=== PATIENT | male | born 1975 | race Two or more races ===

== ENCOUNTER 2025-02-20 02:22 | Inpatient (IN) | payer MEDICAID ==
[~2025-02-20] VITALS: Ht 172.7 cm; Wt 129.3 kg
[~2025-02-20 02:22] MED LIST: SACU1TAB7 PO; SPIR25TA8 PO
--- NOTE | 2025-02-20 02:50 | ECG ---
[facility] Test Date: 2025-02-20 Test Time: 02:28:14 Pat Name: LETA TA Department: ED Room: [address] [place] [address] Gender: M Staff Research Scientist: JUSTO : 1975 Requested By: TENA GROVER Order Number: [id number] Reading MD: Harsh Hugo Measurements Intervals Brick Rate: 121 P: 9 MN: 136 QRS: -32 QRSD: 119 T: 120 QT: 342 QTc: 486 Interpretive Statements Sinus tachycardia Atrial premature complex Probable left atrial enlargement LVH with IVCD and secondary repol abnrm Borderline prolonged QT interval Electronically Signed On 02-20-2025 17:31:59 PDT by Harsh Hugo Please click the below link to view image of tracing.
--- NOTE | 2025-02-20 02:53 | ED.PDOC ---
Musculoskeletal HPI Comments 49 y/o morbidly obese M presents with 2x week history of bilateral leg and feet swelling, with associated pain and shortness of breath. Patient has a history of cardiomyopathy, CHF, HTN, liver cirrhosis, gout, and alcohol abuse. Admits to Tylenol use 4 hours prior to arrival. He denies any chest pain, palpitations, nausea, vomiting, cough, congestion, fever, chills, numbness, tingling, or further associated symptoms. Chief Complaint: Lower Extremity Time Seen by MD: 02:45 Primary Care Provider: NO PCP Reviewed Notes: Nurses Notes, Medications, Allergies Allergies: Coded Allergies: NO KNOWN ALLERGIES (Unverified , 07/10/17) Home Meds No Active Prescriptions or Reported Meds Information Source: Patient Mode of Arrival: Wheelchair Location: Bilateral Extremity Location: Leg Timing: Weeks Prehospital treatment: None Past Medical History PAST MEDICAL HISTORY: CHF, HTN, Liver (liver cirrhosis) Past Medical History (Other): cardiomyopathy morbid obesity Surgical History: Denies all surgeries Family History Family History: Unknown Social History Smoker: Non-Smoker Alcohol: Heavy Drugs: Marijuana Lives In: Home All Other Systems: Reviewed and Negative (As per HPI) Physical Exam General Appearance: No Apparent Distress, Normal HEENT: Normal ENT Inspection, Pharynx Normal, TMs Normal Neck: Full Range of Motion, Non-Tender, Normal, Normal Inspection Respiratory: Chest Non-Tender, Decreased Breath Sounds (diminished breath sounds bilaterally), Lungs Clear, No Accessory Muscle Use, No Respiratory Distress Cardiovascular: No Edema, No JVD, No Murmur, No Gallop, Normal Peripheral Pulses, Regular Rate/Rhythm Breast Exam: Deferred Gastrointestinal: No Organomegaly, Non Tender, No Pulsatile Mass, Normal Bowel Sounds, Soft Genitalia: Deferred Pelvic: Deferred Rectal: Deferred Extremities: Leg edema (3+ pitting edema to bilateral extremities below the knees), No calf tenderness, Normal capillary refill, Normal range of motion, No pedal edema Musculoskeletal : Apperance: Normal Neurologic: Alert, glacing machine tender II-XII nml as Tested, No Motor Deficits, Normal Affect, Normal Mood, No Sensory Deficits Cerebellar Function: Normal Reflexes: Normal Skin: Dry, Normal Color, Warm Lymphatic: No Adenopathy Was a procedure done? Was a procedure done?: No EKG EKG : Pulse Rate (adult): 121 [employer]: Normal Cardiac Rhythm: ST Block: None Hypertrophy: None ST: Normal Differential Diagnosis EXT Differential Diagnosis: CHF, Deep Vein Thrombosis, Gout, Myocardial Infarction X-Ray, Labs, Meds, VS Vital Signs Date Time Temp Pulse Resp B/P (MAP) Pulse Ox O2 Delivery O2 Flow Rate FiO2 02/20/25 03:25 121 02/20/25 02:44 121 02/20/25 02:23 97.0 115 18 121/76 (91) 93 97.0 Lab Test 02/20/25 03:26 Range/Units White Blood Count 22.0 H 4.4-10.8 10^3/uL Red Blood Count 3.99 L 4.5-5.90 10^6/uL Hemoglobin 11.8 L 13.5-17.5 g/dL Hematocrit 34.9 L 41.0-53.0 % Mean Corpuscular Volume 87.5 80.0-100.0 fL Mean Corpuscular Hemoglobin 29.5 28.0-32.0 pg Mean Corpuscular Hemoglobin Concent 33.7 32.0-36.0 g/dL Red Cell Distribution Width 14.0 11.8-14.3 % Platelet Count 238 140-450 10^3/uL Mean Platelet Volume 7.2 6.9-10.8 fL Neutrophils (%) (Auto) 87.5 H 37.0-80.0 % Lymphocytes (%) (Auto) 2.7 L 10.0-50.0 % Monocytes (%) (Auto) 9.3 0.0-12.0 % Eosinophils (%) (Auto) 0.0 0.0-7.0 % Basophils (%) (Auto) 0.5 0.0-2.0 % Neutrophils # (Auto) 19.2 H 1.6-8.6 10 ^3/uL Lymphocytes # (Auto) 0.6 0.4-5.4 10 ^3/uL Monocytes # (Auto) 2.0 H 0-1.3 10 ^3/uL Eosinophils # (Auto) 0 0-0.8 10 ^3/uL Basophils # (Auto) 0.1 0-0.2 10 ^3/uL Nucleated Red Blood Cells 0.0 % Prothrombin Time 13.4 H 9.3-11.8 sec Prothrombin Time INR 1.30 H 0.9-1.15 Activated Partial Thromboplast Time 42.0 H 24.5-34.5 SEC Sodium Level 133 L 136-145 mmol/L Potassium Level 3.7 3.5-5.1 mmol/L Chloride Level 91 L 98-107 mmol/L Carbon Dioxide Level 26 20-31 mmol/L Anion Gap 16 H 5-15 Blood Urea Nitrogen 11 9-23 mg/dL Creatinine 1.16 0.700-1.30 mg/dL Glomerular Filtration Rate Calc 77 >90 mL/min BUN/Creatinine Ratio 9.5 L 10.0-20.0 Serum Glucose 135 H 74-106 mg/dL Calcium Level 8.4 L 8.7-10.4 mg/dL Total Bilirubin 2.2 H 0.2-1.0 mg/dL Aspartate Amino Transferase (AST) 78 H <34 U/L Alanine Aminotransferase (ALT) 65 H 7-40 U/L Alkaline Phosphatase 101 46-116 U/L Troponin I High Sensitivity 43 </=54 ng/L B-Type Natriuretic Peptide 172.42 0-100 pg/mL Total Protein 6.6 5.7-8.2 g/dL Albumin 4.0 3.2-4.8 g/dL Time of 1ST Reevaluation: 03:15 Reevaluation 1ST: Unchanged Patient Education/Counseling: Diagnosis, Treatment, Other (need for admission ) Family Education/Counseling: No Family Present Departure 1 Departure Time of Disposition: 04:51 Impression: Primary Impression: Gout attack Additional Impression: Cellulitis of left foot Disposition: 09 ADMITTED INPATIENT Admit to: Med Surg Condition: Guarded e-Prescriptions No Active Prescriptions or Reported Meds Discharged With: Self Comments Bilateral Lower Extremity Swelling with Cellulitis and Shortness of Breath Chief Complaint: Bilateral lower extremity swelling with left foot redness and shortness of breath History of Present Illness: Patient is a 49-year-old male with a significant past medical history of gout, congestive heart failure, cardiomyopathy, hypertension, liver cirrhosis, and alcohol abuse who presents to the Emergency Department with complaints of bilateral lower extremity swelling and redness of the left foot. The patient reports that the pain in his left foot feels similar to previous gout attacks he has experienced. Additionally, he reports feeling short of breath. The patient is experiencing significant discomfort on reevaluation. Given his presentation with cellulitis, leukocytosis, and suspected gout exacerbation, the decision has been made to admit the patient for further management. Review of Systems: Constitutional: Reports discomfort. Respiratory: Positive for shortness of breath. Cardiovascular: Positive for lower extremity edema. Musculoskeletal: Positive for left foot pain consistent with previous gout attacks. Skin: Positive for left foot erythema and bilateral lower extremity swelling. All other systems: Deferred or negative. Past Medical History: 1. Gout 2. Congestive heart failure 3. Cardiomyopathy 4. Hypertension 5. Liver cirrhosis 6. Alcohol abuse Past Surgical History: Not documented in counseling case manager. Physical Exam: General: Patient in significant discomfort on reevaluation. HEENT: Not documented. Cardiovascular: Not specifically documented. Respiratory: Lungs are clear. Abdomen: Not documented. Extremities: Significant pitting edema in bilateral lower extremities. Erythema noted on the left foot. Lab Results: CBC: - WBC: 22,000/?L (elevated) with 88% neutrophils (left shift) Chemistry: - Sodium: 133 mEq/L (mild hyponatremia) - Chloride: 91 mEq/L (low) - Anion gap: 16 mEq/L (elevated) - Glucose: 135 mg/dL Cardiac markers: - Troponin: 43 pg/mL (normal) - BNP: 172 pg/mL (normal) Imaging and Other Relevant Results: Chest X-ray: Cardiomegaly noted. Medical Decision Making: Summary Statement: 49-year-old male with history of gout, CHF, cardiomyopathy, hypertension, liver cirrhosis, and alcohol abuse presenting with bilateral lower extremity edema, left foot erythema, and shortness of breath. Labs show significant leukocytosis with left shift and mild electrolyte abnormalities. Problem List: 1. Cellulitis of left foot with leukocytosis 2. Acute gout attack 3. Bilateral lower extremity edema 4. Cardiomyopathy with cardiomegaly 5. Liver cirrhosis 6. Alcohol abuse Differential Diagnosis: For lower extremity swelling and erythema: cellulitis, gout flare, deep vein thrombosis, CHF exacerbation, venous stasis, lymphedema. For leukocytosis: infection (cellulitis), inflammatory conditions, stress response, medication effect. ED Course: Patient evaluated for bilateral lower extremity swelling and left foot erythema. Labs revealed significant leukocytosis with left shift. Chest X- ray showed cardiomegaly. Patient remained in significant discomfort despite initial interventions. Decision made to admit for treatment of cellulitis with IV antibiotics and management of acute gout attack. Assessment and Plan: 1. Cellulitis of left foot with leukocytosis - Admit for IV antibiotics (recommend broad-spectrum coverage) - Monitor WBC count daily - Elevate affected extremity - Daily wound assessment 2. Acute gout attack - Anti-inflammatory therapy as appropriate - Consider colchicine if not contraindicated by liver disease - Pain management - Rheumatology consultation if refractory to initial treatment 3. Bilateral lower extremity edema - Assess cardiac function - Consider diuretic therapy if consistent with heart failure exacerbation - Elevate extremities - Daily weight monitoring 4. Cardiomyopathy with cardiomegaly - Continue home heart failure medications if appropriate - Cardiology consultation - Consider echocardiogram to assess current cardiac function 5. Liver cirrhosis - Monitor liver function tests - Careful medication selection considering hepatic metabolism - Hepatology consultation if needed 6. Alcohol abuse - Assess for withdrawal risk - Consider addiction medicine consultation - Provide resources for treatment upon discharge Additional Notes: Patient admitted for cellulitis with leukocytosis and acute gout attack Billing Information: ICD-10: L03.115 - Cellulitis of left lower limb ICD-10: M10.9 - Gout, unspecified ICD-10: R60.0 - Localized edema ICD-10: I50.9 - Heart failure, unspecified ICD-10: K74.60 - Unspecified cirrhosis of liver ICD-10: F10.20 - Alcohol dependence, uncomplicated Critical Care Note Critical Care Time?: No Stability Stability form required: No Heart Score Heart Score: Heart Score Response (Comments) Value History Highly Suspicious 2 EKG Normal 0 Age 45-64 1 Risk Factors >3 or Hx ASHD 2 Troponin Normal limit 0 Total 5 I personally scribed for TENA GROVER MD ([email or web address]) on 02/20/25 at 02:52. Electronically submitted by Jerry Doran ([email or web address]). I personally scribed for TENA GROVER MD ([email or web address]) on 02/20/25 at 03:25. Electronically submitted by Jerry Doran ([email or web address]). TNEA GROVER MD Feb 20, 2025 02:52
--- NOTE | 2025-02-20 03:21 | DVH ---
CHEST RADIOGRAPH Indication: SOB Technique: Single frontal view of the chest was obtained COMPARISON: None FINDINGS: Lines and Tubes: None Lungs: Clear Pleura: No effusion. No pneumothorax. Cardiomediastinal contours: Cardiomegaly. Bones: Unremarkable IMPRESSION: 1. Cardiomegaly.
[2025-02-20 03:34] LABS: Hematocrit 34.9 % (41.0-53.0); Hemoglobin 11.8 g/dL (13.5-17.5); Mean Corpuscular Hemoglobin 29.5 pg (28.0-32.0); Mean Corpuscular Volume 87.5 fL (80.0-100.0); Nucleated Red Blood Cells % 0.0 %
[2025-02-20 03:50] LABS: INR 1.3 (0.9-1.15); Partial Thromboplastin Time 42.0 SEC (24.5-34.5); Prothrombin Time 13.4 sec (9.3-11.8)
[2025-02-20 03:52] LABS: Albumin 4.0 g/dL (3.2-4.8); Alkaline Phosphatase 101 U/L (46-116); Anion Gap 16 (5-15); BUN/Creatinine Ratio 9.5 (10.0-20.0); Blood Urea Nitrogen 11 mg/dL (9-23); Carbon Dioxide 26 mmol/L (20-31); Potassium 3.7 mmol/L (3.5-5.1); Total Protein 6.6 g/dL (5.7-8.2)
[2025-02-20 03:53] LABS: Chloride 91 mmol/L (98-107); Glucose 135 mg/dL (74-106); Sodium 133 mmol/L (136-145)
[2025-02-20 03:54] LABS: Alanine Aminotransferase 65 U/L (7-40); Bilirubin, Total 2.2 mg/dL (0.2-1.0); Calcium 8.4 mg/dL (8.7-10.4)
[2025-02-20] MEDS: VANCOMYCIN 1GM/200ML PM 200 ML IV ONE (05:05)
[2025-02-20] MEDS: ceFAZolin 1GM/50ML 50 ML IV ONE (06:08)
[2025-02-20 06:22] LABS: Lactic Acid w/Reflex 2.3 mmol/L (0.4-2.0)
--- NOTE | 2025-02-20 06:38 | DVHHP2 ---
History of Present Illness Reason for Visit: Bilateral lower extremity swelling History of Present Illness 49-year-old male past medical history cardiomyopathy CHF hypertension denies history liver cirrhosis gout alcohol use last use was two months ago chief complaint patient is in his wheelchair with his at side but he said he has been having some shortness of the breath has been ongoing for last two weeks. Patient states he has been dealing with swelling to his lower extremity for six years now with the last two weeks in his symptoms got worse he does take Lasix daily and he takes Entresto for heart failure but patient states he has not follow up with the loom starter as of yet the last time he seen a Cards was four years ago but he did see his primary doctor 3-4 months ago patient also complains of severe pain to his left foot with swelling and redness he feels he has a gout flare he does complain of pain all over his joints patient currently on oxygen he does not use oxygen at home. When evaluating patient's labs and imaging from the ED looks like Nalinief was given vanco Lasix white count was found to be 22.2 glucose was 135 hemoglobin and hematocrit was 11.836.9 sodium was 133 chloride was 91 lactate was 2.3 cardio megaly was found on chest x-ray otherwise unremarkable troponin was negative AST was 78 ALT was 65 INR is 1.32 BNP was 172.42 patient denies any smoking or drug use but he states he was drinking daily for three years since last drink was two months ago with these findings we will admit and ask for Cardiology evaluation also provide IV antibiotics for cellulitis and also we will do workup for shortness of the breath patient went distended abdomen on my exam we will do ultrasound to check for ascites Past Medical History See HPI above Past Surgical History See HPI above Family History Reviewed, non-contributory to the management of this case. Past Social History Patient was a heavy drinker he stopped two months ago drank beer daily for the last three years denies drug or smoking Review of Systems Constitutional: No: Fever, Chills, Sweats, Weakness, Malaise, Other Eyes: No: Pain, Vision change, Conjunctivae inflammation, Eyelid inflammation, Other, Redness ENT: No: Ear pain, Ear discharge, Nose pain, Nose discharge, Nose congestion, Mouth pain, Mouth swelling, Throat pain, Throat swelling, Other Respiratory: Shortness of breath, SOB with excertion; No: Cough, Dry, Wheezing, Hemoptysis, Pleuritic Pain, Sputum, Wheezing, Other Cardiovascular: Edema; No: Chest Pain, Palpitations, Orthopnea, Paroxysmal Noc. Dyspnea, Lt Headedness, Other Gastrointestinal: Abdominal Pain (Round in his firm); No: Nausea, Vomiting, Diarrhea, Constipation, Melena, Hematochezia, Other Genitourinary: No Dysuria, No Frequency, No Incontinence, No Hematuria, No Retention, No Other Musculoskeletal: leg pain, foot pain (Patient with discoloration of the right foot also redness and tenderness to the left foot compartments soft neurovascular intact); No: other, neck pain, shoulder pain, arm pain, back pain, hand pain Skin: No: Rash, Lesions, Jaundice, Bruising, Other Neurological: No: Weakness, Numbness, Incoordination, Change in speech, Confusion, Seizures, Other Allergies: Coded Allergies: NO KNOWN ALLERGIES (Unverified , 07/10/17) Exam Vital Signs Vital Signs Date Time Temp Pulse Resp B/P (MAP) Pulse Ox O2 Delivery O2 Flow Rate FiO2 02/20/25 03:25 121 02/20/25 02:23 97.0 18 121/76 (91) 93 97.0 General Appearance: Alert, Oriented X3, Cooperative, mild distress HEENT: Atraumatic, PERRLA, EOMI, Mucous membr. moist/pink Respiratory: Other (Diminished lung sounds throughout) Cardiovascular: Regular rate, Normal S1, Normal S2, No murmurs Abdominal: Normal bowel sounds, Other (Abdomen around slightly firm) Extremities: Other (Bilateral lower extremity edema right foot some discoloration to the toes but compartments soft neurovascular intact, left foot and ankle erythema swelling compartments soft neurovascular intact no open wounds no drainage) Skin: No rashes, No breakdown, No significant lesion Neuro: Other (Patient in wheelchair not able to walk) Psych/Mental Status: Mental status NL, Mood NL Labs/Xrays Chest x-ray shows cardiomegaly I reviewed labs, imaging CT scan abdomen pelvis, EKG and all diagnostic studies on this patient from ED records and the medical chart Labs Test 02/20/25 05:47 02/20/25 03:26 Range/Units Lactic Acid Level 2.3 *H 0.4-2.0 mmol/L White Blood Count 22.0 H 4.4-10.8 10^3/uL Red Blood Count 3.99 L 4.5-5.90 10^6/uL Hemoglobin 11.8 L 13.5-17.5 g/dL Hematocrit 34.9 L 41.0-53.0 % Mean Corpuscular Volume 87.5 80.0-100.0 fL Mean Corpuscular Hemoglobin 29.5 28.0-32.0 pg Mean Corpuscular Hemoglobin Concent 33.7 32.0-36.0 g/dL Red Cell Distribution Width 14.0 11.8-14.3 % Platelet Count 238 140-450 10^3/uL Mean Platelet Volume 7.2 6.9-10.8 fL Neutrophils (%) (Auto) 87.5 H 37.0-80.0 % Lymphocytes (%) (Auto) 2.7 L 10.0-50.0 % Monocytes (%) (Auto) 9.3 0.0-12.0 % Eosinophils (%) (Auto) 0.0 0.0-7.0 % Basophils (%) (Auto) 0.5 0.0-2.0 % Neutrophils # (Auto) 19.2 H 1.6-8.6 10 ^3/uL Lymphocytes # (Auto) 0.6 0.4-5.4 10 ^3/uL Monocytes # (Auto) 2.0 H 0-1.3 10 ^3/uL Eosinophils # (Auto) 0 0-0.8 10 ^3/uL Basophils # (Auto) 0.1 0-0.2 10 ^3/uL Nucleated Red Blood Cells 0.0 % Prothrombin Time 13.4 H 9.3-11.8 sec Prothrombin Time INR 1.30 H 0.9-1.15 Activated Partial Thromboplast Time 42.0 H 24.5-34.5 SEC Sodium Level 133 L 136-145 mmol/L Potassium Level 3.7 3.5-5.1 mmol/L Chloride Level 91 L 98-107 mmol/L Carbon Dioxide Level 26 20-31 mmol/L Anion Gap 16 H 5-15 Blood Urea Nitrogen 11 9-23 mg/dL Creatinine 1.16 0.700-1.30 mg/dL Glomerular Filtration Rate Calc 77 >90 mL/min BUN/Creatinine Ratio 9.5 L 10.0-20.0 Serum Glucose 135 H 74-106 mg/dL Calcium Level 8.4 L 8.7-10.4 mg/dL Total Bilirubin 2.2 H 0.2-1.0 mg/dL Aspartate Amino Transferase (AST) 78 H <34 U/L Alanine Aminotransferase (ALT) 65 H 7-40 U/L Alkaline Phosphatase 101 46-116 U/L B-Type Natriuretic Peptide 172.42 0-100 pg/mL Total Protein 6.6 5.7-8.2 g/dL Albumin 4.0 3.2-4.8 g/dL Assessment/Plan Assessment/Plan acute sepsis elevated wbc and lactate ordered blood cultures ordered lactic repeat will provide vanco and zosyn for now wound culture if open wound acute left foot cellulitis vs gout flare ordered vanco for now ordered morphine as needed for pain ordered colchine for now acute gout flare ordered colchine ordered morphine as needed for pain ordered uric acid acute bilateral lower ext swelling ordered us fu result ordered lasix for elevation to help with swelling acute leukocytosis can be from gout flare vs cellulitis ordered vanco for now ordered blood cultures ordered lactic fu results acute on chronic diastolic systolic heart failure cxr shows cardiomegally trop negative mild elevation in bnp ordered lasix for now last echo in 2017 ef very poor ordered repeat echo fu results strict i/o's chronic problems cardiomyopathy chf htn liver cirrhosis gout etoh abuse fen/ppx diet hl lovenox no gi ppx since no hx of gerd or gi bleed plan admit to tele tx for cellulitis and workup for heart failure Plan discussed with: Patient Date of Service: Feb 20, 2025 Billing Provider: DORETHA PAINTING DNP Common Visit Codes: [id number] INP/OBS CARE (HIGH) DORETHA PAINTING DNP Feb 20, 2025 06:38
[2025-02-20] MEDS ORDERED: DOCUSATE SOD 100 MG CAP PO PRN (09:00)
[2025-02-20] MEDS ORDERED: NITROGLYCERIN 0.4 MG SL TAB SL PRN (09:00)
[2025-02-20] MEDS ORDERED: VANCOMYCIN PER PHARMACY 0 MG IV SCH (09:00)
[2025-02-20 09:17] LABS: Base Excess -3.5 mmol/L (-2.0-3.0)
[2025-02-20 09:19] VITALS: PULSE 53; RESP 16; O2SAT 96
[2025-02-20] MEDS: ENOXAPARIN SOD 40 MG/0.4 ML SYRINGE SC SCH (09:30)
[2025-02-20] MEDS: PIPERACILLIN-TAZOB 3.375GM 100 ML IV ONE (09:31)
[2025-02-20] MEDS: FUROSEMIDE 40 MG/4 ML VIAL IV ONE (09:31)
--- NOTE | 2025-02-20 10:38 | DVH ---
US ABDOMEN LIMITED HISTORY: acute transaminitis, eval for ascites COMPARISON: None TECHNIQUE: Transverse and longitudinal sonographic images were obtained of all four quadrants of the abdomen and pelvis. FINDINGS: IMPRESSION: There is no ascites.
--- NOTE | 2025-02-20 11:12 | DVH ---
US BiLat Lower DVT HISTORY: eval for dvt COMPARISON: None TECHNIQUE: Duplex doppler evaluation of the deep venous system of the lower extremity from the common femoral veins, superficial femoral vein, great saphenous vein, deep femoral vein, popliteal vein, an d calf veins, including color doppler and spectral/pulsed waveform analysis, was performed. FINDINGS: Right: - Common femoral vein: Compressible - Deep femoral vein: Compressible - Femoral vein: Compressible - Popliteal vein: Compressible - Posterior tibial vein: Waveforms present - Other: Nothing Left: - Common femoral vein: Compressible - Deep femoral vein: Compressible - Femoral vein: Compressible - Popliteal vein: Compressible - Posterior tibial vein: Waveforms present - Other: Nothing IMPRESSION: No right or left lower extremity deep venous thrombosis.
--- NOTE | 2025-02-20 11:16 | DVH ---
DUPLEX BILATERAL LOWER EXTREMITY ARTERIAL ULTRASOUND WITH AN: HISTORY: eval for vascular occlusion COMPARISON: None TECHNIQUE: Real-time grayscale, color-flow and doppler ultrasound evaluation of the bilateral lower e xtremity arteries. Spectral waveforms were obtained. FINDINGS: RIGHT: In the right extremity, biphasic waveforms in the common femoral artery, superficial femoral artery, popiteal artery, posterior tibial artery, and dorsalis pedis artery. LEFT: Biphasic waveforms in the common femoral artery, superficial thermal artery, popiteal artery, dorsal pedis, and posterior tibial artery. Subcutaneous edema is noted within the left lower extremity. IMPRESSION: 1. No evidence of hemodynamically significant stenosis 2. Mildly hyperemic waveforms in the right lower extremity 3. Subcutaneous edema within the left lower extremity
--- NOTE | 2025-02-20 13:13 | DVHINCON2 ---
Date Seen: Feb 20, 2025 Referring Physician Geovany Reason for Consultation CHF History of Present Illness 49-year-old male with PMH for CHF, HTN, liver cirrhosis, ETOH abuse, nonischemic cardiomyopathy, gout presented to the hospital with worsening shortness of breath and bilateral lower extremity edema and redness. Patient endorses taking medication, is on Lasix at home though was continued to have increased swelling of the bilateral lower extremity. Got to the point to where patient had increased shortness of breath and can not doing anything exertional and therefore came to the hospital. Denies chest pain, palpitations. Upon evaluation in the ER, troponin trending negative BNP 172, ALT 65, AST 78. Patient endorses compliance with his medication and diuretic at home though states he has been drinking increased amounts of fluid and is not been watching his sodium content. Patient continues to have intermittent use of alcohol. EKG reviewed and shows sinus tachycardia at 121 beats per minute, PAC, IVCD. Past Medical History HTN CHF Nonischemic cardiomyopathy Liver cirrhosis ETOH Gout Past Surgical History Coronary angiogram - negative for obstructive CAD. Family History Denies pertinent family cardiac history Social History Endorses ETOH, occasional marijuana use. Denies tobacco use. Allergies: Coded Allergies: NO KNOWN ALLERGIES (Unverified , 07/10/17) Home Meds No Active Prescriptions or Reported Meds Current Medications Current Medications Medications (Trade) Dose Ordered Sig/Bradley Route PRN Reason Start Time Stop Time Status Last Admin Vancomycin HCl 0 ml @ 0 mls/hr UD IV 02/20/25 09:00 Piperacillin Sod/ Tazobactam Sod 100 ml @ 25 mls/hr Q6H IV 02/20/25 15:00 Furosemide (Lasix Injection) 40 mg BIDD IV 02/20/25 18:00 Aspirin 81 mg DAILY PO 02/21/25 10:00 Ondansetron HCl (Zofran) 4 mg Q4HP PRN IV NAUSEA / VOMITING 02/20/25 09:00 Docusate Sodium (Colace Capsule) 100 mg BIDPRN PRN PO FOR CONSTIPATION 02/20/25 09:00 Morphine Sulfate 2 mg Q4HPRN PRN IV SEVERE PAIN (7-10 PAIN SCALE) 02/20/25 09:00 Enoxaparin Sodium (Lovenox) 40 mg DAILY SC 02/20/25 09:00 02/20/25 09:30 Nitroglycerin (Ntrostat Sublingual) 0.4 mg Q5MINP PRN SL FOR CHEST PAIN 02/20/25 09:00 Vancomycin HCl 300 ml @ 200 mls/hr Q12H IV 02/20/25 13:00 Review of Systems Constitutional: No: Fever, Chills, Sweats, Weakness, Malaise, Other Eyes: No: Pain, Vision change, Conjunctivae inflammation, Eyelid inflammation, Other, Redness ENT: No: Ear pain, Ear discharge, Nose pain, Nose discharge, Nose congestion, Mouth pain, Mouth swelling, Throat pain, Throat swelling, Other Respiratory: No: Cough, Dry, Wheezing, Hemoptysis, Pleuritic Pain, Sputum, Wheezing, Other positive: Shortness of breath, SOB with exertion, Cardiovascular: ; No: Chest Pain Palpitations, Orthopnea, Paroxysmal Noc. Dyspnea, , Lt Headedness, Other positive: Edema Gastrointestinal: No: Nausea, Vomiting, Abdominal Pain, Diarrhea, Constipation, Melena, Hematochezia, Other Genitourinary: No Dysuria, No Frequency, No Incontinence, No Hematuria, No Retention, No Other Musculoskeletal: neck pain; No: other, shoulder pain, arm pain, back pain, hand pain, leg pain, foot pain Skin: No: Rash, Lesions, Jaundice, Bruising, Other Neurological: Other (Dizziness, headache.); No: Weakness, Numbness, Incoordination, Change in speech, Confusion, Seizures Vital Signs Vital Signs Date Time Temp Pulse Resp B/P (MAP) Pulse Ox O2 Delivery O2 Flow Rate FiO2 02/20/25 09:31 120/85 02/20/25 09:19 98.2 53 16 97 98.2 02/20/25 09:19 Room Air* 0 21 Physical Exam General appearance: Patient is well-developed, well-nourished, in mild acute distress. HEENT: Exam shows: Normocephalic, atraumatic, PERRLA, EOMI Neck: Supple, no bruits Chest: Equal chest excursion bilaterally. Breath sounds crackles, rales Heart: Rhythm: Regular rate; no murmur or gallop Abdomen: Exam shows: Soft, nontender, nondistended Musculoskeletal: No clubbing, no cyanosis, +3 lower extremity edema Dermatology: Skin warm, moist. Bilateral lower extremity cellulitis Neurological: Exam shows: Alert and oriented x4, normal speech Available prior records, labs, EKG, rhythm strips reviewed and interpreted Labs/Diagnostic Data Labs Test 02/20/25 09:13 02/20/25 09:11 02/20/25 07:48 02/20/25 03:26 Range/Units Blood Gas Specimen Type Arterial Blood Gas Sample Site Left radial Blood Gas Patient Temperature 37.0 Arterial Blood Date Drawn [id number] Arterial Blood pH 7.329 L 7.350-7.450 Arterial Blood Partial Pressure CO2 43.6 35.0-48.0 mmHg Arterial Blood Partial Pressure O2 109.8 H 83.0-108.0 mmHg Arterial Blood HCO3 22.4 21.0-28.0 mmol/L Arterial Blood Oxygen Saturation 97.6 94.0-98.0 % Arterial Blood Base Excess -3.5 L -2.0-3.0 mmol/L Arterial Blood Oxyhemoglobin 95.5 94.0-98.0 % Arterial Blood Carboxyhemoglobin 1.7 H 0.5-1.5 % Arterial Blood Methemoglobin 0.5 0.0-1.5 % Nerique Test Yes Blood Gas Total Hemoglobin 12.70 L 13.5-17.5 g/dL Blood Gas Modality Nasal cannula FiO2 % 32.0 D-Dimer, Quantitative 1.32 H 0.0-0.49 mg/L FEU Lactic Acid Level 1.9 0.4-2.0 mmol/L Uric Acid 10.1 H 3.7-9.2 mg/dL Troponin I High Sensitivity 49 </=54 ng/L White Blood Count 22.0 H 4.4-10.8 10^3/uL Red Blood Count 3.99 L 4.5-5.90 10^6/uL Hemoglobin 11.8 L 13.5-17.5 g/dL Hematocrit 34.9 L 41.0-53.0 % Mean Corpuscular Volume 87.5 80.0-100.0 fL Mean Corpuscular Hemoglobin 29.5 28.0-32.0 pg Mean Corpuscular Hemoglobin Concent 33.7 32.0-36.0 g/dL Red Cell Distribution Width 14.0 11.8-14.3 % Platelet Count 238 140-450 10^3/uL Mean Platelet Volume 7.2 6.9-10.8 fL Neutrophils (%) (Auto) 87.5 H 37.0-80.0 % Lymphocytes (%) (Auto) 2.7 L 10.0-50.0 % Monocytes (%) (Auto) 9.3 0.0-12.0 % Eosinophils (%) (Auto) 0.0 0.0-7.0 % Basophils (%) (Auto) 0.5 0.0-2.0 % Neutrophils # (Auto) 19.2 H 1.6-8.6 10 ^3/uL Lymphocytes # (Auto) 0.6 0.4-5.4 10 ^3/uL Monocytes # (Auto) 2.0 H 0-1.3 10 ^3/uL Eosinophils # (Auto) 0 0-0.8 10 ^3/uL Basophils # (Auto) 0.1 0-0.2 10 ^3/uL Nucleated Red Blood Cells 0.0 % Prothrombin Time 13.4 H 9.3-11.8 sec Prothrombin Time INR 1.30 H 0.9-1.15 Activated Partial Thromboplast Time 42.0 H 24.5-34.5 SEC Sodium Level 133 L 136-145 mmol/L Potassium Level 3.7 3.5-5.1 mmol/L Chloride Level 91 L 98-107 mmol/L Carbon Dioxide Level 26 20-31 mmol/L Anion Gap 16 H 5-15 Blood Urea Nitrogen 11 9-23 mg/dL Creatinine 1.16 0.700-1.30 mg/dL Glomerular Filtration Rate Calc 77 >90 mL/min BUN/Creatinine Ratio 9.5 L 10.0-20.0 Serum Glucose 135 H 74-106 mg/dL Calcium Level 8.4 L 8.7-10.4 mg/dL Total Bilirubin 2.2 H 0.2-1.0 mg/dL Aspartate Amino Transferase (AST) 78 H <34 U/L Alanine Aminotransferase (ALT) 65 H 7-40 U/L Alkaline Phosphatase 101 46-116 U/L B-Type Natriuretic Peptide 172.42 0-100 pg/mL Total Protein 6.6 5.7-8.2 g/dL Albumin 4.0 3.2-4.8 g/dL Assessment * Acute on chronic HFrEF - continue diuresis with Lasix 40 mg IV b.i.d.. Monitor strict I&Os. Follow up echo. 1.5 L fluid restriction. * Nonischemic cardiomyopathy - continue Entresto 1 tab p.o. twice daily. Home med metoprolol held due to marginal HR. Continue spironolactone 25 mg daily. * Bilateral lower extremity cellulitis, gout - venous Doppler negative for DVT. Continue on IV antibiotics, management per primary team. * Alcoholic liver cirrhosis - management per primary team. Case Discussed with Dr Hugo. Plan of care as above. Critical care, time spent: 48 minutes This medical document was created using an electronic medical record system with voice recognition software and computerized dictation system. Although this document has been carefully reviewed, there might still be some phonetic and typographical errors. Occasional wrong-word or ``sound-alike substitutions may have occurred due to the inherent limitations of voice recognition software. These areas are purely typographical due to imperfections of the software programs and do not reflect any compromise in the patient's medical care. Please read the chart carefully and recognize, using context, where these substitutions have occurred. Thank you for allowing me to participate in the management of this patient. The treatment plan was discussed with and agreed upon by patient/family including requesting consultants and ordering of imaging/procedures. Plan discussed with: Patient NYHA Physical activity limitations: Class4(Severe)discomfort Date of Service: Feb 20, 2025 Billing Provider: JF SWANSON Cardiology Common Codes: [id number] INP/OBS CARE (High), [id number] CARE 30-74 MIN JF SWANSON Feb 20, 2025 13:13
[2025-02-20] MEDS: VANCOMYCIN 1.5GM/300ML 300 ML IV SCH (13:29)
[2025-02-20] MEDS: PIPERACILLIN-TAZOB 3.375GM 100 ML IV SCH (16:02)
[2025-02-20] MEDS: FUROSEMIDE 40 MG/4 ML VIAL IV SCH (18:00)
--- NOTE | 2025-02-20 18:11 | DVHSR ---
APPROVED REPORT EXAM: Two-dimensional and M-mode echocardiogram with Doppler and color Doppler. Blood Pressure: 104/78 mmHg INDICATION Eval for cardiac function and EF RISK FACTORS Obesity: Height: 5'8", Weight: 300 DIMENSIONS LVDd7.3 (3.8-5.7cm)LA (2D)4.8 (1.9-4.0cm)Aortic Root3.7 (2.0-3.7cm) LVDs6.8 (2.5-4.0cm)LA (MM) (1.9-4.0cm)Aortic Cusp Exc2.4 (1.5-2.0cm) EF (%) 16.0 (55-70%)Rt. Atrium4.8 (1.9-4.0cm)Asc. Aorta cm IVSd1.1 (0.7-1.1cm)RV (D) (1.8-2.4cm) PWd1.2 (0.7-1.1cm) Mitral Valve MitralMitral Stenosis E/A ratio0.02D MVAcm2 Aortic Valve Aortic ValveAortic Stenosis V11.07m/Babak Mean GR.5mmHg V21.48m/Babak Peak GR.9mmHg LVOT Diameter2.5 (1.8-2.4cm)Doppler AVA3.55cm2 Pulmonic Valve V21.03m/s Other Information Technically limited study due to body habitus, patient lying flat. Conclusion Sinus rhythm. Biatrial enlargement. Valves are normal. Left ventricular systolic function is diminished. EF is about 20% with global hypokinesis. Mildly d iminished RV function. Mild MR. Moderate TR. No pericardial effusion masses or vegetations.
[2025-02-20] MEDS: HYDROcodone-ACET 5/325MG TAB PO ONE (20:30)
[2025-02-20 21:50] VITALS: BP 196/147; PULSE 103; RESP 18; TEMP 97.9; O2SAT 94
[2025-02-20 22:16] VITALS: RESP 17
[2025-02-20] MEDS: MORPHINE SULFATE INJ 2 MG/ml SYRG IV PRN (22:32)
[2025-02-20] MEDS ORDERED: METO25TA5 PO (22:49)
[2025-02-20] MEDS ORDERED: FURO40TA4 PO (22:49)
[2025-02-20] MEDS ORDERED: FAMO-68 PO (22:49)
[2025-02-20] MEDS ORDERED: ATOR20TA PO (22:49)
[2025-02-20] MEDS ORDERED: ASPI1TAB20 PO (22:49)
[2025-02-20] MEDS ORDERED: ALLO300T2 PO (22:49)
[2025-02-21] VITALS (8 sets, daily range): BP systolic 88–116; BP diastolic 38–72; PULSE 54–116; RESP 16–18; TEMP 98.2–98.9; O2SAT 91–100
[2025-02-21 07:22] LABS: Hematocrit 33.1 % (41.0-53.0); Hemoglobin 11.1 g/dL (13.5-17.5); Mean Corpuscular Hemoglobin 29.7 pg (28.0-32.0); Mean Corpuscular Volume 88.4 fL (80.0-100.0); Nucleated Red Blood Cells % 0.1 %
[2025-02-21 08:03] LABS: Alkaline Phosphatase 109 U/L (46-116); Anion Gap 18 (5-15); BUN/Creatinine Ratio 8.5 (10.0-20.0); Carbon Dioxide 23 mmol/L (20-31); Potassium 4.1 mmol/L (3.5-5.1); Total Protein 6.2 g/dL (5.7-8.2)
[2025-02-21 08:04] LABS: Albumin 3.7 g/dL (3.2-4.8); Bilirubin, Total 1.1 mg/dL (0.2-1.0)
[2025-02-21 08:05] LABS: Alanine Aminotransferase 65 U/L (7-40); Blood Urea Nitrogen 28 mg/dL (9-23); Calcium 8.2 mg/dL (8.7-10.4); Chloride 89 mmol/L (98-107); Glucose 67 mg/dL (74-106); Sodium 130 mmol/L (136-145)
[2025-02-21] MEDS: FUROSEMIDE 20 MG/2 ML VIAL IV ONE (11:45)
--- NOTE | 2025-02-21 11:48 | DVHPN2 ---
Consult Progress Note Date Seen: Feb 21, 2025 Subjective Review of Systems: CVS:Normal, RESPIRATORY:Abnormal, MSK:Abnormal Other Systems: C/o mild SOB and bilateral knee pain Objective vital signs Vital Sign Date Time Temp Pulse Resp B/P (MAP) Pulse Ox O2 Delivery O2 Flow Rate FiO2 02/21/25 09:00 98.8 54 16 88/58 (68) 91 98.8 02/21/25 08:00 Room Air* 0 21 Total Intake and Output 02/20/25 02/20/25 02/21/25 15:00 23:00 07:00 Intake Total 150 ml 100 ml 240 ml Balance 150 ml 100 ml 240 ml medications Current Medications Medications Dose Ordered Sig/Bradley Route Start Time Stop Time Status Last Admin Dose Admin Vancomycin HCl 0 ml @ 0 mls/hr UD IV 02/20/25 09:00 Piperacillin Sod/ Tazobactam Sod 100 ml @ 25 mls/hr Q6H IV 02/20/25 15:00 02/21/25 09:53 25 MLS/HR Furosemide 40 mg BIDD IV 02/20/25 18:00 Aspirin 81 mg DAILY PO 02/21/25 10:00 02/21/25 09:53 81 MG Ondansetron HCl 4 mg Q4HP PRN IV 02/20/25 09:00 Docusate Sodium 100 mg BIDPRN PRN PO 02/20/25 09:00 Morphine Sulfate 2 mg Q4HPRN PRN IV 02/20/25 09:00 02/20/25 22:32 2 MG Enoxaparin Sodium 40 mg DAILY SC 02/20/25 09:00 02/21/25 09:53 40 MG Nitroglycerin 0.4 mg Q5MINP PRN SL 02/20/25 09:00 Vancomycin HCl 300 ml @ 200 mls/hr Q12H IV 02/20/25 13:00 02/21/25 02:12 200 MLS/HR Examination: LUNGS:Abnormal (O2 via NC. Clear BLS), CVS:Normal (Sinus rhythm with PVCs), MSK:Abnormal (BLE edema ++, erythema present), NEURO:Normal laboratory and microbiology Laboratory Tests 02/21/25 06:25 Test 02/21/25 06:25 Range/Units Serum Glucose 67 L 74-106 mg/dL Problem List/Assessment/Plan Problem List/Assessment/Plan Assessment * Acute on chronic HFrEF - LVEF 20% with global hypokinesis. Continue diuresis with Lasix 20 mg IV b.i.d. given soft BPs. Monitor strict I&Os, daily weight, fluid restrictions. Unable to initiate GDMT for CHF given borderline BPs and MATEUS. * Nonischemic/alcohol induced cardiomyopathy - DVT/VTE prophylaxis. As above. * Sepsis with bilateral lower extremity cellulitis, gout - venous Doppler negative for DVT. Continue on IV antibiotics, management per primary team. * Alcoholic liver cirrhosis - management per primary team. * MATEUS-initiate nephrology consultation. Consider discontinuation of vancomycin. * Morbid obesity - highly suspected for NIKHIL, follow-up as outpatient. Thank you for allowing me to participate in the management of this patient. The treatment plan was discussed with and agreed upon by patient/family including requesting consultants and ordering of imaging/procedures. This medical document was created using an electronic medical record system with voice recognition software and computerized dictation system. Although this document has been carefully reviewed, there might still be some phonetic and typographical errors. Occasional wrong-word or ``sound-alike substitutions may have occurred due to the inherent limitations of voice recognition software. These areas are purely typographical due to imperfections of the software programs and do not reflect any compromise in the patient's medical care. Please read the chart carefully and recognize, using context, where these substitutions have occurred. Plan discussed with: Patient, Other Date of Service: Feb 21, 2025 Billing Provider: DALJIT HAUSER Cardiology Common Codes: [id number] HOSP CARE(High DALJIT HAUSER Feb 21, 2025 11:48
[2025-02-21 12:14] LABS: Triglycerides 129.0 mg/dL (< 150)
[2025-02-21 12:16] LABS: Cholesterol 130.0 mg/dL (< 200)
[2025-02-21 12:19] LABS: HDL Cholesterol 27.0 mg/dL (40-59); Magnesium 1.2 mg/dL (1.6-2.6)
--- NOTE | 2025-02-21 16:11 | DVHPN2 ---
Progress Note Date Seen: Feb 21, 2025 Medical Necessity Reason Pt with a Central, PICC or Fol: No Subjective Patient reports: No new complaints Review of Systems: HEENT:Normal, CVS:Normal, RESPIRATORY:Normal, GI:Normal, :Normal, MSK:Normal, NEURO:Normal Objective vital signs Vital Sign Date Time Temp Pulse Resp B/P (MAP) Pulse Ox O2 Delivery O2 Flow Rate FiO2 02/21/25 13:00 98.4 57 18 96/38 (57) 100 98.4 02/21/25 08:00 Room Air* 0 21 Total Intake and Output 02/20/25 02/20/25 02/21/25 15:00 23:00 07:00 Intake Total 150 ml 100 ml 240 ml Balance 150 ml 100 ml 240 ml medications Current Medications Medications Dose Ordered Sig/Bradley Route Start Time Stop Time Status Last Admin Dose Admin Vancomycin HCl 0 ml @ 0 mls/hr UD IV 02/20/25 09:00 Piperacillin Sod/ Tazobactam Sod 100 ml @ 25 mls/hr Q6H IV 02/20/25 15:00 02/21/25 14:56 25 MLS/HR Aspirin 81 mg DAILY PO 02/21/25 10:00 02/21/25 09:53 81 MG Ondansetron HCl 4 mg Q4HP PRN IV 02/20/25 09:00 Docusate Sodium 100 mg BIDPRN PRN PO 02/20/25 09:00 Morphine Sulfate 2 mg Q4HPRN PRN IV 02/20/25 09:00 02/20/25 22:32 2 MG Enoxaparin Sodium 40 mg DAILY SC 02/20/25 09:00 02/21/25 09:53 40 MG Nitroglycerin 0.4 mg Q5MINP PRN SL 02/20/25 09:00 Furosemide 20 mg BIDD IV 02/21/25 18:00 Examination: GENERAL:Normal, HEENT:Normal, NECK:Normal, LUNGS:Normal, LUNGS:Abnormal (on oxygen), CVS:Normal, ABDOMEN:Normal, ABDOMEN:Abnormal (?distension), MSK:Normal, MSK:Abnormal (edema, redness both legs), SKIN:Normal, NEURO:Normal, :Normal laboratory and microbiology Laboratory Tests 02/21/25 06:25 Test 02/21/25 06:25 Range/Units Serum Glucose 67 L 74-106 mg/dL Microbiology Date/Time Source Procedure Growth Status 02/20/25 05:47 Blood Blood Culture - Preliminary NO GROWTH AFTER 24 HOURS OF INCUBATION. Resulted Problem List/Assessment/Plan Problem List/Assessment/Plan #1 acute resp failure #2 gout with flare up: iv steroids, allopurinol #3 morbid obesity #4 alcoholic dilated cardiomyopathy #5 ? acute systolic heart failure #6 acute renal failure ?vasomotor nephropathy:dc lasix, usg #7 liver cirrhosis- alcoholic #8 sepsis with cellulitis: iv zosyn advance care planning- full code- time spent 18 mins Plan discussed with: Patient My Orders My Orders Orders - ANA POTTER MD Procedure Category Date Status Time Zosyn Extended PHA 02/21/25 Transmitted Infusion 22:00 Methylprednisolone PHA 02/21/25 Transmitted Sod Succ (Solu Medrol 16:15 Methylprednisolone PHA 02/21/25 Transmitted Sod Succ (Solu Medrol 22:00 Allopurinol Tablet PHA 02/21/25 Transmitted (Zyloprim Tablet) 16:15 Allopurinol Tablet PHA 02/22/25 Transmitted (Zyloprim Tablet) 10:00 Urinalysis LAB 02/21/25 Uncollected 16:01 Complete Blood Count LAB 02/22/25 Verified 06:00 Comprehensive LAB 02/22/25 Verified Metabolic Panel 06:00 Kidney US 02/21/25 Transmitted 16:01 Date of Service: Feb 21, 2025 Billing Provider: ANA POTETR MD Common Visit Codes: [id number] INP/OBS CARE(HIGH) Secondary Visit Codes: [id number] CARE PLAN 30 MINUTES ANA POTTER MD Feb 21, 2025 16:11
--- NOTE | 2025-02-21 17:29 | DVH ---
RENAL ULTRASOUND History: RENAL FAILURE Comparison: None Technique: Multiple real-time sonographic images of the kidney and bladder were obtained in conjuncti on with Doppler imaging. Findings: The right kidney measures 12.9 cm and demonstrates no evidence of hydronephrosis, perinephric fluid c ollection, or shadowing stone. The left kidney measures 13.4 cm and demonstrates no evidence of hydronephrosis, perinephric fluid co llection, or shadowing stone. Urinary bladder: Prevoid urinary bladder volume is 76 mL. Impression: No sonographic evidence for hydronephrosis.
[2025-02-21] MEDS: ALLOPURINOL 100 MG TAB PO ONE (17:42)
[2025-02-21] MEDS: methylPREDNISolone SOD SUCC 125 MG/2 ML VL IV ONE (17:42)
[2025-02-21] MEDS ORDERED: FUROSEMIDE 20 MG/2 ML VIAL IV SCH (18:00)
[2025-02-21] MEDS: HYDROcodone-ACET 5/325MG TAB PO PRN (18:43)
[2025-02-21] MEDS: methylPREDNISolone SOD SUCC 40 MG/ML VL IV SCH (21:20)
[2025-02-21] MEDS: PIPERACILLIN-TAZOB 3.375GM 100 ML IV SCH (21:23)
[2025-02-22] VITALS (8 sets, daily range): BP systolic 104–131; BP diastolic 59–88; PULSE 77–114; RESP 14–21; TEMP 97.8–99.3; O2SAT 92–98
[2025-02-22 04:33] LABS: Urine Amorphous Crystal FEW /hpf (None Seen); Urine Protein, UAD 1+ (Negative)
[2025-02-22 06:18] LABS: Hematocrit 31.9 % (41.0-53.0); Hemoglobin 10.8 g/dL (13.5-17.5); Mean Corpuscular Hemoglobin 29.7 pg (28.0-32.0); Mean Corpuscular Volume 87.7 fL (80.0-100.0); Nucleated Red Blood Cells % 0.0 %
[2025-02-22 06:36] LABS: Albumin 3.3 g/dL (3.2-4.8); Alkaline Phosphatase 105 U/L (46-116); Anion Gap 20 (5-15); BUN/Creatinine Ratio 10.3 (10.0-20.0); Carbon Dioxide 23 mmol/L (20-31); Potassium 4.2 mmol/L (3.5-5.1)
[2025-02-22 06:37] LABS: Bilirubin, Total 0.6 mg/dL (0.2-1.0); Sodium 130 mmol/L (136-145)
[2025-02-22 06:38] LABS: Alanine Aminotransferase 57 U/L (7-40); Blood Urea Nitrogen 45 mg/dL (9-23); Calcium 7.0 mg/dL (8.7-10.4); Chloride 87 mmol/L (98-107); Glucose 210 mg/dL (74-106); Total Protein 5.5 g/dL (5.7-8.2)
[2025-02-22] MEDS: ALLOPURINOL 100 MG TAB PO SCH (09:28)
--- NOTE | 2025-02-22 09:29 | DVHPN2 ---
Consult Progress Note Date Seen: Feb 22, 2025 Subjective Patient reports: Feels better Review of Systems: CVS:Normal, RESPIRATORY:Normal, NEURO:Normal Objective vital signs Vital Sign Date Time Temp Pulse Resp B/P (MAP) Pulse Ox O2 Delivery O2 Flow Rate FiO2 02/22/25 09:09 98.6 98 16 104/66 (79) 95 98.6 02/22/25 08:00 Room Air* 0 21 Total Intake and Output 02/21/25 02/21/25 02/22/25 15:00 23:00 07:00 Intake Total 275 ml 300 ml Balance 275 ml 300 ml medications Current Medications Medications Dose Ordered Sig/Bradley Route Start Time Stop Time Status Last Admin Dose Admin Aspirin 81 mg DAILY PO 02/21/25 10:00 02/21/25 09:53 81 MG Ondansetron HCl 4 mg Q4HP PRN IV 02/20/25 09:00 Docusate Sodium 100 mg BIDPRN PRN PO 02/20/25 09:00 Morphine Sulfate 2 mg Q4HPRN PRN IV 02/20/25 09:00 02/20/25 22:32 2 MG Enoxaparin Sodium 40 mg DAILY SC 02/20/25 09:00 02/21/25 09:53 40 MG Nitroglycerin 0.4 mg Q5MINP PRN SL 02/20/25 09:00 Piperacillin Sod/ Tazobactam Sod 100 ml @ 25 mls/hr Q8HR IV 02/21/25 22:00 02/22/25 06:01 25 MLS/HR Methylprednisolone Sodium Succinate 40 mg BID IV 02/21/25 22:00 02/21/25 21:20 40 MG Allopurinol 100 mg DAILY PO 02/22/25 10:00 Acetaminophen/ Hydrocodone Bitart 1 tab Q6HPRN PRN PO 02/21/25 18:30 02/21/25 18:43 1 TAB Examination: LUNGS:Normal, CVS:Normal, NEURO:Normal laboratory and microbiology Laboratory Tests 02/22/25 05:04 Test 02/22/25 05:04 Range/Units Serum Glucose 210 #H 74-106 mg/dL Problem List/Assessment/Plan Problem List/Assessment/Plan Assessment (Dr. Hugo) * Acute on chronic HFrEF - LVEF 20% with global hypokinesis. Initiate GDMT for CHF with optimal BPs and renal function. * Nonischemic/alcohol induced cardiomyopathy - DVT/VTE prophylaxis. As above. * Sepsis with bilateral lower extremity cellulitis/gout - venous Doppler negative for DVT. Continue on IV antibiotics, management per primary team. * Alcoholic liver cirrhosis - management per primary team. * MATEUS-initiate nephrology consultation and recommendations. * Morbid obesity - highly suspected for NIKHIL, follow-up as outpatient. Follow-up with a primary toe laster within 3-4 weeks post-discharge. There is no further cardiac work-up indicated at this time. Kindly call if in need to re-consult. Thank you for allowing me to participate in the management of this patient. This medical document was created using an electronic medical record system with voice recognition software and computerized dictation system. Although this document has been carefully reviewed, there might still be some phonetic and typographical errors. Occasional wrong-word or ``sound-alike substitutions may have occurred due to the inherent limitations of voice recognition software. These areas are purely typographical due to imperfections of the software programs and do not reflect any compromise in the patient's medical care. Please read the chart carefully and recognize, using context, where these substitutions have occurred. Plan discussed with: Patient, Other Date of Service: Feb 22, 2025 Billing Provider: DALJIT HAUSER Cardiology Common Codes: [id number] INP/OBS CARE(Mod) DALJIT HAUSER Feb 22, 2025 09:29
[2025-02-22] MEDS: MAGNESIUM SULFATE 1GM/100ML 100 ML IV SCH (11:20)
[2025-02-22] MEDS: SODIUM CHLORIDE 0.9% 1,000 ML IV ONE (15:26)
--- NOTE | 2025-02-22 16:06 | DVHPN2 ---
Progress Note Date Seen: Feb 22, 2025 Medical Necessity Reason Pt with a Central, PICC or Fol: No Subjective Patient reports: No new complaints Review of Systems: HEENT:Normal, CVS:Normal, RESPIRATORY:Normal, GI:Normal, :Normal, MSK:Normal, NEURO:Normal Objective vital signs Vital Sign Date Time Temp Pulse Resp B/P (MAP) Pulse Ox O2 Delivery O2 Flow Rate FiO2 02/22/25 13:00 98.1 82 17 111/71 (84) 98 98.1 02/22/25 08:00 Room Air* 0 21 Total Intake and Output 02/21/25 02/21/25 02/22/25 15:00 23:00 07:00 Intake Total 275 ml 300 ml Balance 275 ml 300 ml medications Current Medications Medications Dose Ordered Sig/Bradley Route Start Time Stop Time Status Last Admin Dose Admin Aspirin 81 mg DAILY PO 02/21/25 10:00 02/22/25 09:27 81 MG Ondansetron HCl 4 mg Q4HP PRN IV 02/20/25 09:00 Docusate Sodium 100 mg BIDPRN PRN PO 02/20/25 09:00 Morphine Sulfate 2 mg Q4HPRN PRN IV 02/20/25 09:00 02/20/25 22:32 2 MG Enoxaparin Sodium 40 mg DAILY SC 02/20/25 09:00 02/22/25 09:30 40 MG Nitroglycerin 0.4 mg Q5MINP PRN SL 02/20/25 09:00 Piperacillin Sod/ Tazobactam Sod 100 ml @ 25 mls/hr Q8HR IV 02/21/25 22:00 02/22/25 15:26 25 MLS/HR Methylprednisolone Sodium Succinate 40 mg BID IV 02/21/25 22:00 02/22/25 09:26 40 MG Allopurinol 100 mg DAILY PO 02/22/25 10:00 02/22/25 09:28 100 MG Acetaminophen/ Hydrocodone Bitart 1 tab Q6HPRN PRN PO 02/21/25 18:30 02/21/25 18:43 1 TAB Examination: GENERAL:Normal, HEENT:Normal, NECK:Normal, LUNGS:Normal, CVS:Normal, ABDOMEN:Normal, MSK:Normal, MSK:Abnormal (edema++), SKIN:Normal, NEURO:Normal, :Normal laboratory and microbiology Laboratory Tests 02/22/25 05:04 Test 02/22/25 05:04 Range/Units Serum Glucose 210 #H 74-106 mg/dL Microbiology Date/Time Source Procedure Growth Status 02/20/25 05:47 Blood Blood Culture - Preliminary NO GROWTH AFTER 48 HOURS OF INCUBATION. Resulted Problem List/Assessment/Plan Problem List/Assessment/Plan #1 acute resp failure #2 gout with flare up: iv steroids, allopurinol #3 morbid obesity #4 alcoholic dilated cardiomyopathy #5 ? acute systolic heart failure #6 acute renal failure ?vasomotor nephropathy:dc lasix, usg #7 liver cirrhosis- alcoholic #8 sepsis with cellulitis: iv zosyn advance care planning- full code- time spent 18 mins Plan discussed with: Patient, Spouse My Orders My Orders Orders - ANA POTTER MD Procedure Category Date Status Time Piperacillin-Tazob PHA 02/21/25 In Process 3.375gm (Zosyn 3.375g 22:00 Methylprednisolone PHA 02/21/25 In Process Sod Succ (Solu Medrol 22:00 Allopurinol Tablet PHA 02/22/25 In Process (Zyloprim Tablet) 10:00 Urinalysis LAB 02/21/25 Uncollected 16:01 Kidney US 02/21/25 Resulted 16:01 Hydrocodone-Acet PHA 02/21/25 In Process 5/325mg Tab ([place] 18:30 Basic Metabolic Panel LAB 02/23/25 Verified 06:00 Complete Blood Count LAB 02/23/25 Verified 06:00 Date of Service: Feb 22, 2025 Billing Provider: ANA POTTER MD Common Visit Codes: [id number] INP/OBS CARE(HIGH) ANA POTTER MD Feb 22, 2025 16:05
[2025-02-22] MEDS: BUMETANIDE INJECTION 25 MG in GIVE UN-DILUTED 0 ML IV SCH (18:59)
[2025-02-22 19:31] LABS: Protein, Urine 78.2 mg/dL (1-14)
--- NOTE | 2025-02-22 20:06 | DVHINCON2 ---
Date of service: Feb 22, 2025 Reason for Consultation MATEUS History of Present Illness 49 years old male with past medical history of cardiomyopathy, congestive heart failure, liver cirrhosis, Chronic kidney disease three, hypertension, morbid obesity, gout, extensive alcohol use drinks alcohol every day. 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 with vancomycin with very high vanco trough greater than 40 found to have vancomycin toxicity Nephrology consulted for acute renal failure EF is 20 percent diminished RV function his Lasix were held Past Medical History Per HPI Past Surgical History Per HPI Allergies: Coded Allergies: NO KNOWN ALLERGIES (Unverified , 07/10/17) Home Meds Reported Medications Spironolactone (Spironolactone) 25 Mg Tab, 1 TAB PO DAILY for 30 Days, #30 02/22/25 Atorvastatin Calcium (Lipitor) 20 Mg Tab, 1 TAB PO DAILY, #90 TAB 1 Refill 02/20/25 Famotidine (Gnp Acid Wire Stitcher Maximum) 20 Mg Tab, 1 TAB PO BID, #60 TAB 3 Refills 02/20/25 Sacubitril-Valsartan (Entresto 49-51 mg) 1 Tab Tab, 1 TAB PO BID for 30 Days, #60 02/20/25 Allopurinol (Allopurinol) 300 Mg Tab, 300 MG PO DAILY, TAB 02/20/25 Metoprolol Tartrate (Metoprolol Tartrate) 25 Mg Tab, 1 TAB PO BID, #180 TAB 1 Refill 02/20/25 Aspirin (Aspir-81) 81 Mg Tab, 1 TAB PO DAILY, #30 TAB 5 Refills 02/20/25 Furosemide (Furosemide) 40 Mg Tab, 1 TAB PO DAILY, #30 TAB 5 Refills 02/20/25 Current Medications Current Medications Medications (Trade) Dose Ordered Sig/Bradley Route PRN Reason Start Time Stop Time Status Last Admin Piperacillin Sod/ Tazobactam Sod 100 ml @ 25 mls/hr Q8HR IV 02/21/25 22:00 02/22/25 15:26 Methylprednisolone Sodium Succinate (Solu Medrol) 40 mg BID IV 02/21/25 22:00 02/22/25 09:26 Allopurinol (Zyloprim Tablet) 100 mg DAILY PO 02/22/25 10:00 02/22/25 09:28 Magnesium Sulfate/ Dextrose 100 ml @ 100 mls/hr Q1HR IV 02/22/25 10:00 02/22/25 11:59 DC 02/22/25 12:52 Bumetanide 25 mg/ Miscellaneous 100 ml @ 4 mls/hr Q24H IV 02/22/25 18:15 02/22/25 18:59 Family History: Patient reports no known family medical history. Social History Extensive alcohol abuse stopped it two months ago Review of Systems HEENT-denies headache, denies vision changes, no hearing issue, denies neck complaints, denies throat issues Respiratory system-denies cough, positive shortness of breath Cardiovascular system-denies chest pain, denies palpitations Abdomen-denies abdominal pain, denies nausea, denies vomiting, denies constipation or diarrhea Musculoskeletal-positive swelling in the legs, denies pain in the extremities Genitourinary-denies urinary symptoms like dysuria, stream issues Neuro-denies dizziness, denies seizures Psychiatric-denies psychiatric history H&P Exam Vital Signs/I&O Vital Sign Date Time Temp Pulse Resp B/P (MAP) Pulse Ox O2 Delivery O2 Flow Rate FiO2 02/22/25 18:59 131/84 02/22/25 17:09 98.5 77 16 98 98.5 02/22/25 08:00 Room Air* 0 21 Intake and Output 02/21/25 02/22/25 19:00 07:00 Intake Total 275 ml 300 ml Balance 275 ml 300 ml Intake Oral 275 ml 300 ml # Voids 1 1 Physical Exam General-not in any distress HEENT-normocephalic, no icterus, no pallor, neck supple Respiratory-fair air entry bilateral, no rhonchi, no wheeze [id number] heard, no murmurs appreciated Abdominal-soft, nontender, nondistended Musculoskeletal-3+ pedal edema, no calf tenderness Genitourinary-deferred Neuro-awake alert oriented x3, Psychiatric-not agitated, cooperative, Labs/Diagnostic Data Labs/Diagnostic Data Laboratory Tests Test 02/22/25 19:00 02/22/25 05:04 02/22/25 03:15 02/21/25 12:01 Range/Units Urine Creatinine 130.92 H 30.0-125.0 mg/dL Urine Protein/Creatinine Ratio 0.60 Urine Sodium < 10 L 40-220 mmol/L Urine Total Protein 78.2 H 1-14 mg/dL White Blood Count 11.7 #H 4.4-10.8 10^3/uL Red Blood Count 3.64 L 4.5-5.90 10^6/uL Hemoglobin 10.8 L 13.5-17.5 g/dL Hematocrit 31.9 L 41.0-53.0 % Mean Corpuscular Volume 87.7 80.0-100.0 fL Mean Corpuscular Hemoglobin 29.7 28.0-32.0 pg Mean Corpuscular Hemoglobin Concent 33.9 32.0-36.0 g/dL Red Cell Distribution Width 13.9 11.8-14.3 % Platelet Count 312 140-450 10^3/uL Mean Platelet Volume 7.3 6.9-10.8 fL Neutrophils (%) (Auto) 96.7 H 37.0-80.0 % Lymphocytes (%) (Auto) 1.6 L 10.0-50.0 % Monocytes (%) (Auto) 1.6 0.0-12.0 % Eosinophils (%) (Auto) 0.0 0.0-7.0 % Basophils (%) (Auto) 0.1 0.0-2.0 % Neutrophils # (Auto) 11.3 H 1.6-8.6 10 ^3/uL Lymphocytes # (Auto) 0.2 L 0.4-5.4 10 ^3/uL Monocytes # (Auto) 0.2 0-1.3 10 ^3/uL Eosinophils # (Auto) 0 0-0.8 10 ^3/uL Basophils # (Auto) 0 0-0.2 10 ^3/uL Nucleated Red Blood Cells 0.0 % Sodium Level 130 L 136-145 mmol/L Potassium Level 4.2 3.5-5.1 mmol/L Chloride Level 87 L 98-107 mmol/L Carbon Dioxide Level 23 20-31 mmol/L Anion Gap 20 H 5-15 Blood Urea Nitrogen 45 #H 9-23 mg/dL Creatinine 4.37 H 0.700-1.30 mg/dL Glomerular Filtration Rate Calc 16 >90 mL/min BUN/Creatinine Ratio 10.3 10.0-20.0 Serum Glucose 210 #H 74-106 mg/dL Calcium Level 7.0 L 8.7-10.4 mg/dL Total Bilirubin 0.6 0.2-1.0 mg/dL Aspartate Amino Transferase (AST) 78 H <34 U/L Alanine Aminotransferase (ALT) 57 H 7-40 U/L Alkaline Phosphatase 105 46-116 U/L Total Protein 5.5 L 5.7-8.2 g/dL Albumin 3.3 3.2-4.8 g/dL Random Vancomycin Level 35.0 H 5-10 ug/mL Urine Color Dark yellow Yellow Urine Clarity Turbid H Clear Urine pH 5.0 5.0-9.0 Urine Specific Sophia 1.023 1.001-1.035 Urine Protein 1+ H Negative Urine Ketones Trace Negative Urine Blood Trace H Negative /uL Urine Nitrite Negative Negative Urine Bilirubin Negative Negative Urine Urobilinogen Normal Negative mg/dL Urine Leukocyte Esterase Negative Negative /uL Urine RBC 6 0 - 3 /hpf Urine Microscopic WBC 7 H 0-3 /HPF Urine Squamous Epithelial Cells Few <5 /hpf Urine Amorphous Crystals Few None Seen /hpf Urine Bacteria None seen None Seen /hpf Urine Glucose Normal Normal mg/dL Vancomycin Level Trough 47.2 *H 5-10 ug/mL Test 02/21/25 06:25 02/20/25 09:13 02/20/25 09:11 02/20/25 07:48 Range/Units White Blood Count 18.6 H 4.4-10.8 10^3/uL Red Blood Count 3.75 L 4.5-5.90 10^6/uL Hemoglobin 11.1 L 13.5-17.5 g/dL Hematocrit 33.1 L 41.0-53.0 % Mean Corpuscular Volume 88.4 80.0-100.0 fL Mean Corpuscular Hemoglobin 29.7 28.0-32.0 pg Mean Corpuscular Hemoglobin Concent 33.6 32.0-36.0 g/dL Red Cell Distribution Width 14.0 11.8-14.3 % Platelet Count 284 140-450 10^3/uL Mean Platelet Volume 7.4 6.9-10.8 fL Neutrophils (%) (Auto) 83.9 H 37.0-80.0 % Lymphocytes (%) (Auto) 4.9 L 10.0-50.0 % Monocytes (%) (Auto) 10.4 0.0-12.0 % Eosinophils (%) (Auto) 0.4 0.0-7.0 % Basophils (%) (Auto) 0.4 0.0-2.0 % Neutrophils # (Auto) 15.6 H 1.6-8.6 10 ^3/uL Lymphocytes # (Auto) 0.9 0.4-5.4 10 ^3/uL Monocytes # (Auto) 1.9 H 0-1.3 10 ^3/uL Eosinophils # (Auto) 0.1 0-0.8 10 ^3/uL Basophils # (Auto) 0.1 0-0.2 10 ^3/uL Nucleated Red Blood Cells 0.1 % Sodium Level 130 L 136-145 mmol/L Potassium Level 4.1 3.5-5.1 mmol/L Chloride Level 89 L 98-107 mmol/L Carbon Dioxide Level 23 20-31 mmol/L Anion Gap 18 H 5-15 Blood Urea Nitrogen 28 #H 9-23 mg/dL Creatinine 3.28 #H 0.700-1.30 mg/dL Glomerular Filtration Rate Calc 22 >90 mL/min BUN/Creatinine Ratio 8.5 L 10.0-20.0 Serum Glucose 67 L 74-106 mg/dL Calcium Level 8.2 L 8.7-10.4 mg/dL Magnesium Level 1.2 L 1.6-2.6 mg/dL Total Bilirubin 1.1 H 0.2-1.0 mg/dL Aspartate Amino Transferase (AST) 112 H <34 U/L Alanine Aminotransferase (ALT) 65 H 7-40 U/L Alkaline Phosphatase 109 46-116 U/L B-Type Natriuretic Peptide 77.12 0-100 pg/mL Total Protein 6.2 5.7-8.2 g/dL Albumin 3.7 3.2-4.8 g/dL Triglycerides Level 129 < 150 mg/dL Cholesterol Level 130 < 200 mg/dL LDL Cholesterol 77 < 100 mg/dL HDL Cholesterol 27 L 40-59 mg/dL Thyroid Stimulating Hormone (TSH) 0.68 0.55-4.78 uIU/mL Blood Gas Specimen Type Arterial Blood Gas Sample Site Left radial Blood Gas Patient Temperature 37.0 Arterial Blood Date Drawn [id number] Arterial Blood pH 7.329 L 7.350-7.450 Arterial Blood Partial Pressure CO2 43.6 35.0-48.0 mmHg Arterial Blood Partial Pressure O2 109.8 H 83.0-108.0 mmHg Arterial Blood HCO3 22.4 21.0-28.0 mmol/L Arterial Blood Oxygen Saturation 97.6 94.0-98.0 % Arterial Blood Base Excess -3.5 L -2.0-3.0 mmol/L Arterial Blood Oxyhemoglobin 95.5 94.0-98.0 % Arterial Blood Carboxyhemoglobin 1.7 H 0.5-1.5 % Arterial Blood Methemoglobin 0.5 0.0-1.5 % Enrique Test Yes Blood Gas Total Hemoglobin 12.70 L 13.5-17.5 g/dL Blood Gas Modality Nasal cannula FiO2 % 32.0 D-Dimer, Quantitative 1.32 H 0.0-0.49 mg/L FEU Lactic Acid Level 1.9 0.4-2.0 mmol/L Uric Acid 10.1 H 3.7-9.2 mg/dL Troponin I High Sensitivity 49 </=54 ng/L Test 02/20/25 05:47 02/20/25 03:26 Range/Units Lactic Acid Level 2.3 *H 0.4-2.0 mmol/L Troponin I High Sensitivity 49 43 </=54 ng/L White Blood Count 22.0 H 4.4-10.8 10^3/uL Red Blood Count 3.99 L 4.5-5.90 10^6/uL Hemoglobin 11.8 L 13.5-17.5 g/dL Hematocrit 34.9 L 41.0-53.0 % Mean Corpuscular Volume 87.5 80.0-100.0 fL Mean Corpuscular Hemoglobin 29.5 28.0-32.0 pg Mean Corpuscular Hemoglobin Concent 33.7 32.0-36.0 g/dL Red Cell Distribution Width 14.0 11.8-14.3 % Platelet Count 238 140-450 10^3/uL Mean Platelet Volume 7.2 6.9-10.8 fL Neutrophils (%) (Auto) 87.5 H 37.0-80.0 % Lymphocytes (%) (Auto) 2.7 L 10.0-50.0 % Monocytes (%) (Auto) 9.3 0.0-12.0 % Eosinophils (%) (Auto) 0.0 0.0-7.0 % Basophils (%) (Auto) 0.5 0.0-2.0 % Neutrophils # (Auto) 19.2 H 1.6-8.6 10 ^3/uL Lymphocytes # (Auto) 0.6 0.4-5.4 10 ^3/uL Monocytes # (Auto) 2.0 H 0-1.3 10 ^3/uL Eosinophils # (Auto) 0 0-0.8 10 ^3/uL Basophils # (Auto) 0.1 0-0.2 10 ^3/uL Nucleated Red Blood Cells 0.0 % Prothrombin Time 13.4 H 9.3-11.8 sec Prothrombin Time INR 1.30 H 0.9-1.15 Activated Partial Thromboplast Time 42.0 H 24.5-34.5 SEC Sodium Level 133 L 136-145 mmol/L Potassium Level 3.7 3.5-5.1 mmol/L Chloride Level 91 L 98-107 mmol/L Carbon Dioxide Level 26 20-31 mmol/L Anion Gap 16 H 5-15 Blood Urea Nitrogen 11 9-23 mg/dL Creatinine 1.16 0.700-1.30 mg/dL Glomerular Filtration Rate Calc 77 >90 mL/min BUN/Creatinine Ratio 9.5 L 10.0-20.0 Serum Glucose 135 H 74-106 mg/dL Calcium Level 8.4 L 8.7-10.4 mg/dL Total Bilirubin 2.2 H 0.2-1.0 mg/dL Aspartate Amino Transferase (AST) 78 H <34 U/L Alanine Aminotransferase (ALT) 65 H 7-40 U/L Alkaline Phosphatase 101 46-116 U/L B-Type Natriuretic Peptide 172.42 0-100 pg/mL Total Protein 6.6 5.7-8.2 g/dL Albumin 4.0 3.2-4.8 g/dL Assessment Acute kidney injury likely secondary to vanco toxicity plus cardiorenal etiology Vanco level greater than 40 Acute on chronic systolic Congestive heart failure exacerbation EF 20 Liver cirrhosis Anasarca Recommendations Recommend to hold vanco Bumex drip IV 1 L IV fluid to augment diuresis Quantify proteinuria Kidney ultrasound We will follow renal function Plan discussed with: Patient MAYRA STEINER MD Feb 22, 2025 20:06
[2025-02-23] VITALS (8 sets, daily range): BP systolic 117–140; BP diastolic 75–87; PULSE 82–115; RESP 20–21; TEMP 97.7–98.6; O2SAT 94–97
[2025-02-23 06:39] LABS: Hematocrit 31.0 % (41.0-53.0); Hemoglobin 10.6 g/dL (13.5-17.5); Mean Corpuscular Hemoglobin 29.4 pg (28.0-32.0); Mean Corpuscular Volume 86.2 fL (80.0-100.0); Nucleated Red Blood Cells % 0.0 %
[2025-02-23 06:59] LABS: Anion Gap 15 (5-15); Carbon Dioxide 25 mmol/L (20-31)
[2025-02-23 07:05] LABS: BUN/Creatinine Ratio 15.1 (10.0-20.0)
[2025-02-23 07:10] LABS: Blood Urea Nitrogen 53 mg/dL (9-23); Calcium 7.4 mg/dL (8.7-10.4); Chloride 92 mmol/L (98-107); Glucose 194 mg/dL (74-106); Potassium 3.3 mmol/L (3.5-5.1); Sodium 132 mmol/L (136-145)
[2025-02-23] MEDS: POTASSIUM EFFERVESENT TAB 25 MEQ PO ONE (09:41)
--- NOTE | 2025-02-23 13:31 | DVHPN2 ---
Progress Note Date Seen: Feb 23, 2025 Medical Necessity Reason Pt with a Central, PICC or Fol: No Subjective Patient reports: No new complaints Review of Systems: HEENT:Normal, CVS:Normal, RESPIRATORY:Normal, GI:Normal, :Normal, MSK:Normal, NEURO:Normal Objective vital signs Vital Sign Date Time Temp Pulse Resp B/P (MAP) Pulse Ox O2 Delivery O2 Flow Rate FiO2 02/23/25 12:31 98.1 94 20 122/76 (91) 97 98.1 02/23/25 08:10 Nasal Cannula* 3 32 Total Intake and Output 02/22/25 02/22/25 02/23/25 15:00 23:00 07:00 Intake Total 100 ml 350 ml 686 ml Output Total 450 ml 1360 ml Balance 100 ml -100 ml -674 ml medications Current Medications Medications Dose Ordered Sig/Bradley Route Start Time Stop Time Status Last Admin Dose Admin Aspirin 81 mg DAILY PO 02/21/25 10:00 02/23/25 09:42 81 MG Ondansetron HCl 4 mg Q4HP PRN IV 02/20/25 09:00 Docusate Sodium 100 mg BIDPRN PRN PO 02/20/25 09:00 Morphine Sulfate 2 mg Q4HPRN PRN IV 02/20/25 09:00 02/20/25 22:32 2 MG Enoxaparin Sodium 40 mg DAILY SC 02/20/25 09:00 02/23/25 09:42 40 MG Nitroglycerin 0.4 mg Q5MINP PRN SL 02/20/25 09:00 Piperacillin Sod/ Tazobactam Sod 100 ml @ 25 mls/hr Q8HR IV 02/21/25 22:00 02/23/25 05:28 25 MLS/HR Methylprednisolone Sodium Succinate 40 mg BID IV 02/21/25 22:00 02/23/25 09:41 40 MG Allopurinol 100 mg DAILY PO 02/22/25 10:00 02/23/25 09:42 100 MG Acetaminophen/ Hydrocodone Bitart 1 tab Q6HPRN PRN PO 02/21/25 18:30 02/21/25 18:43 1 TAB Bumetanide 25 mg/ Miscellaneous 100 ml @ 4 mls/hr Q24H IV 02/22/25 18:15 02/22/25 18:59 4 MLS/HR Potassium Bicarbonate 50 meq DAILY PO 02/24/25 10:00 Examination: GENERAL:Normal, HEENT:Normal, NECK:Normal, LUNGS:Normal, CVS:Normal, ABDOMEN:Normal, MSK:Normal, MSK:Abnormal (edema++), SKIN:Normal, NEURO:Normal, :Normal laboratory and microbiology Laboratory Tests 02/23/25 05:45 Test 02/23/25 05:45 Range/Units Serum Glucose 194 H 74-106 mg/dL Microbiology Date/Time Source Procedure Growth Status 02/20/25 05:47 Blood Blood Culture - Preliminary NO GROWTH AFTER 72 HOURS OF INCUBATION. Resulted Problem List/Assessment/Plan Problem List/Assessment/Plan #1 acute resp failure #2 gout with flare up: iv steroids, allopurinol #3 morbid obesity #4 alcoholic dilated cardiomyopathy #5 ? acute systolic heart failure #6 acute renal failure ?vasomotor nephropathy: bumex drip #7 liver cirrhosis- alcoholic #8 sepsis with cellulitis: iv ancef advance care planning- full code- time spent 18 mins Plan discussed with: Patient My Orders My Orders Orders - ANA POTTER MD Procedure Category Date Status Time Methylprednisolone PHA 02/23/25 Verified Sod Succ (Solu Medrol 22:00 Cefazolin Ancef PHA 02/23/25 Verified 14:00 Basic Metabolic Panel LAB 02/24/25 Verified 06:00 Complete Blood Count LAB 02/24/25 Verified 06:00 Date of Service: Feb 23, 2025 Billing Provider: ANA POTTER MD Common Visit Codes: [id number] INP/OBS CARE(HIGH) ANA POTTER MD Feb 23, 2025 13:31
[2025-02-23] MEDS: ceFAZolin 1GM/50ML 50 ML IV SCH (14:26)
--- NOTE | 2025-02-23 17:42 | DVHPN2 ---
Progress Note Date Seen: Feb 23, 2025 Medical Necessity Reason Pt with a Central, PICC or Fol: No Subjective Patient reports: Feels better Review of Systems: HEENT:Normal, CVS:Normal, RESPIRATORY:Normal, GI:Normal, :Normal, MSK:Abnormal, NEURO:Normal Objective vital signs Vital Sign Date Time Temp Pulse Resp B/P (MAP) Pulse Ox O2 Delivery O2 Flow Rate FiO2 02/23/25 17:40 133/84 02/23/25 16:39 98.6 110 21 97 98.6 02/23/25 08:10 Nasal Cannula* 3 32 Total Intake and Output 02/22/25 02/22/25 02/23/25 15:00 23:00 07:00 Intake Total 100 ml 350 ml 686 ml Output Total 450 ml 1360 ml Balance 100 ml -100 ml -674 ml medications Current Medications Medications Dose Ordered Sig/Bradley Route Start Time Stop Time Status Last Admin Dose Admin Aspirin 81 mg DAILY PO 02/21/25 10:00 02/23/25 09:42 81 MG Ondansetron HCl 4 mg Q4HP PRN IV 02/20/25 09:00 Docusate Sodium 100 mg BIDPRN PRN PO 02/20/25 09:00 Morphine Sulfate 2 mg Q4HPRN PRN IV 02/20/25 09:00 02/20/25 22:32 2 MG Enoxaparin Sodium 40 mg DAILY SC 02/20/25 09:00 02/23/25 09:42 40 MG Nitroglycerin 0.4 mg Q5MINP PRN SL 02/20/25 09:00 Allopurinol 100 mg DAILY PO 02/22/25 10:00 02/23/25 09:42 100 MG Acetaminophen/ Hydrocodone Bitart 1 tab Q6HPRN PRN PO 02/21/25 18:30 02/21/25 18:43 1 TAB Bumetanide 25 mg/ Miscellaneous 100 ml @ 4 mls/hr Q24H IV 02/22/25 18:15 02/23/25 17:40 4 MLS/HR Potassium Bicarbonate 50 meq DAILY PO 02/24/25 10:00 Methylprednisolone Sodium Succinate 20 mg BID IV 02/23/25 22:00 Cefazolin Sodium 50 ml @ 100 mls/hr Q8HR IV 02/23/25 14:00 02/23/25 14:26 100 MLS/HR Examination: GENERAL:Normal, HEENT:Normal, NECK:Normal, LUNGS:Abnormal, CVS:Normal, ABDOMEN:Normal, MSK:Abnormal, SKIN:Normal, NEURO:Normal, :Normal laboratory and microbiology Laboratory Tests 02/23/25 05:45 Test 02/23/25 05:45 Range/Units Serum Glucose 194 H 74-106 mg/dL Microbiology Date/Time Source Procedure Growth Status 02/20/25 05:47 Blood Blood Culture - Preliminary NO GROWTH AFTER 72 HOURS OF INCUBATION. Resulted Problem List/Assessment/Plan Problem List/Assessment/Plan Acute kidney injury likely secondary to vanco toxicity plus cardiorenal etiology Vanco level greater than 40 Acute on chronic systolic Congestive heart failure exacerbation EF 20 Liver cirrhosis Anasarca Recommendations Bumex drip IV Add metolazone Quantify proteinuria-0.1 g of proteinuria,, anasarca likely secondary to Congestive heart failure plus cirrhosis no evidence of nephrotic syndrome Kidney ultrasound noted We will follow renal function Plan discussed with: Patient My Orders My Orders Orders - MAYRA STEINER MD Procedure Category Date Status Time Give Un-Diluted PHA 02/22/25 In Process (Gi... W/Bumetanide 18:15 Potassium Effervesent PHA 02/24/25 In Process Tab (Klor-Con/Ef) 10:00 MAYRA STEINER MD Feb 23, 2025 17:42
[2025-02-23] MEDS: methylPREDNISolone SOD SUCC 40 MG/ML VL IV SCH (22:00)
[2025-02-24] VITALS (8 sets, daily range): BP systolic 128–150; BP diastolic 89–106; PULSE 55–119; RESP 18–20; TEMP 97.4–98.6; O2SAT 94–97
[2025-02-24 07:31] LABS: Hematocrit 35.5 % (41.0-53.0); Hemoglobin 11.8 g/dL (13.5-17.5); Mean Corpuscular Hemoglobin 28.7 pg (28.0-32.0); Mean Corpuscular Volume 86.4 fL (80.0-100.0); Nucleated Red Blood Cells % 0.1 %
[2025-02-24 07:47] LABS: Anion Gap 13 (5-15); Potassium 3.6 mmol/L (3.5-5.1); Sodium 139 mmol/L (136-145)
[2025-02-24 07:48] LABS: Calcium 9.1 mg/dL (8.7-10.4)
[2025-02-24 07:53] LABS: BUN/Creatinine Ratio 27.3 (10.0-20.0)
[2025-02-24 07:54] LABS: Blood Urea Nitrogen 59 mg/dL (9-23); Carbon Dioxide 34 mmol/L (20-31); Chloride 92 mmol/L (98-107); Glucose 256 mg/dL (74-106)
[2025-02-24] MEDS: POTASSIUM EFFERVESENT TAB 25 MEQ PO SCH (09:50)
--- NOTE | 2025-02-24 10:47 | DVHPN2 ---
Progress Note Date Seen: Feb 24, 2025 Medical Necessity Reason Pt with a Central, PICC or Fol: No Subjective Patient reports: No new complaints, Feels better Review of Systems: Deferred Objective vital signs Vital Sign Date Time Temp Pulse Resp B/P (MAP) Pulse Ox O2 Delivery O2 Flow Rate FiO2 02/24/25 09:51 128/89 02/24/25 08:39 97.4 64 18 94 97.4 02/23/25 20:00 Nasal Cannula* 3 32 Total Intake and Output 02/23/25 02/23/25 02/24/25 15:00 23:00 07:00 Intake Total 150 ml 846 ml 558 ml Output Total 1040 ml 2200 ml Balance 150 ml -194 ml -1642 ml medications Current Medications Medications Dose Ordered Sig/Bradley Route Start Time Stop Time Status Last Admin Dose Admin Aspirin 81 mg DAILY PO 02/21/25 10:00 02/24/25 09:51 81 MG Ondansetron HCl 4 mg Q4HP PRN IV 02/20/25 09:00 Docusate Sodium 100 mg BIDPRN PRN PO 02/20/25 09:00 Morphine Sulfate 2 mg Q4HPRN PRN IV 02/20/25 09:00 02/20/25 22:32 2 MG Enoxaparin Sodium 40 mg DAILY SC 02/20/25 09:00 02/24/25 09:50 40 MG Nitroglycerin 0.4 mg Q5MINP PRN SL 02/20/25 09:00 Allopurinol 100 mg DAILY PO 02/22/25 10:00 02/24/25 09:53 100 MG Acetaminophen/ Hydrocodone Bitart 1 tab Q6HPRN PRN PO 02/21/25 18:30 02/21/25 18:43 1 TAB Bumetanide 25 mg/ Miscellaneous 100 ml @ 4 mls/hr Q24H IV 02/22/25 18:15 02/23/25 17:40 4 MLS/HR Potassium Bicarbonate 50 meq DAILY PO 02/24/25 10:00 02/24/25 09:50 50 MEQ Methylprednisolone Sodium Succinate 20 mg BID IV 02/23/25 22:00 02/24/25 09:50 20 MG Cefazolin Sodium 50 ml @ 100 mls/hr Q8HR IV 02/23/25 14:00 02/24/25 06:21 100 MLS/HR Metolazone 10 mg DAILY PO 02/24/25 10:00 02/24/25 09:51 10 MG Examination: GENERAL:Normal, HEENT:Abnormal, LUNGS:Abnormal, MSK:Abnormal (edema), SKIN:Abnormal, NEURO:Normal laboratory and microbiology Laboratory Tests 02/24/25 06:44 Test 02/24/25 06:44 Range/Units Serum Glucose 256 H 74-106 mg/dL Microbiology Date/Time Source Procedure Growth Status 02/20/25 05:47 Blood Blood Culture - Preliminary NO GROWTH AFTER 72 HOURS OF INCUBATION. Resulted Problem List/Assessment/Plan Problem List/Assessment/Plan Acute kidney injury likely secondary to vanco toxicity plus cardiorenal etiology Vanco level greater than 40 Acute on chronic systolic Congestive heart failure exacerbation EF 20 Liver cirrhosis Anasarca Recommendations Bumex drip IV Added metolazone Quantify proteinuria-0.1 g of proteinuria,, anasarca likely secondary to Congestive heart failure plus cirrhosis no evidence of nephrotic syndrome Kidney ultrasound noted We will follow renal function Plan discussed with: Patient My Orders My Orders Orders - MAYRA STEINER MD Procedure Category Date Status Time Metolazone (Zaroxolyn) PHA 02/24/25 In Process 10:00 MAYRA STEINER MD Feb 24, 2025 10:47
--- NOTE | 2025-02-24 17:56 | DVHPN2 ---
Progress Note Date Seen: Feb 24, 2025 Medical Necessity Reason Pt with a Central, PICC or Fol: No Subjective Patient reports: No new complaints Review of Systems: HEENT:Normal, CVS:Normal, RESPIRATORY:Normal, GI:Normal, :Normal, MSK:Normal, NEURO:Normal Objective vital signs Vital Sign Date Time Temp Pulse Resp B/P (MAP) Pulse Ox O2 Delivery O2 Flow Rate FiO2 02/24/25 17:02 97.8 109 18 147/106 (120) 95 97.8 02/23/25 20:00 Nasal Cannula* 3 32 Total Intake and Output 02/23/25 02/23/25 02/24/25 15:00 23:00 07:00 Intake Total 150 ml 846 ml 558 ml Output Total 1040 ml 2200 ml Balance 150 ml -194 ml -1642 ml medications Current Medications Medications Dose Ordered Sig/Bradley Route Start Time Stop Time Status Last Admin Dose Admin Aspirin 81 mg DAILY PO 02/21/25 10:00 02/24/25 09:51 81 MG Ondansetron HCl 4 mg Q4HP PRN IV 02/20/25 09:00 Docusate Sodium 100 mg BIDPRN PRN PO 02/20/25 09:00 Morphine Sulfate 2 mg Q4HPRN PRN IV 02/20/25 09:00 02/20/25 22:32 2 MG Enoxaparin Sodium 40 mg DAILY SC 02/20/25 09:00 02/24/25 09:50 40 MG Nitroglycerin 0.4 mg Q5MINP PRN SL 02/20/25 09:00 Allopurinol 100 mg DAILY PO 02/22/25 10:00 02/24/25 09:53 100 MG Acetaminophen/ Hydrocodone Bitart 1 tab Q6HPRN PRN PO 02/21/25 18:30 02/21/25 18:43 1 TAB Bumetanide 25 mg/ Miscellaneous 100 ml @ 4 mls/hr Q24H IV 02/22/25 18:15 02/23/25 17:40 4 MLS/HR Potassium Bicarbonate 50 meq DAILY PO 02/24/25 10:00 02/24/25 09:50 50 MEQ Methylprednisolone Sodium Succinate 20 mg BID IV 02/23/25 22:00 02/24/25 09:50 20 MG Cefazolin Sodium 50 ml @ 100 mls/hr Q8HR IV 02/23/25 14:00 02/24/25 14:57 100 MLS/HR Metolazone 10 mg DAILY PO 02/24/25 10:00 02/24/25 09:51 10 MG Examination: GENERAL:Normal, HEENT:Normal, NECK:Normal, LUNGS:Normal, CVS:Normal, ABDOMEN:Normal, MSK:Normal, MSK:Abnormal (edema++), SKIN:Normal, NEURO:Normal, :Normal laboratory and microbiology Laboratory Tests 02/24/25 06:44 Test 02/24/25 06:44 Range/Units Serum Glucose 256 H 74-106 mg/dL Microbiology Date/Time Source Procedure Growth Status 02/20/25 05:47 Blood Blood Culture - Preliminary NO GROWTH AFTER 72 HOURS OF INCUBATION. Resulted Problem List/Assessment/Plan Problem List/Assessment/Plan #1 acute resp failure #2 gout with flare up: steroids, allopurinol #3 morbid obesity #4 alcoholic dilated cardiomyopathy #5 ? acute systolic heart failure #6 acute renal failure ?vasomotor nephropathy: bumex drip, metolazone #7 liver cirrhosis- alcoholic #8 sepsis with cellulitis: cephalexin advance care planning- full code- time spent 18 mins Plan discussed with: Patient Date of Service: Feb 24, 2025 Billing Provider: ANA POTTER MD Common Visit Codes: [id number] INP/OBS CARE(HIGH) ANA POTTER MD Feb 24, 2025 17:56
[2025-02-24] MEDS: CEPHALEXIN 250 MG CAP PO SCH (22:27)
[2025-02-25] VITALS (19 sets, daily range): BP systolic 124–158; BP diastolic 88–111; PULSE 55–121; RESP 18–24; TEMP 97.2–98.6; O2SAT 91–97
[2025-02-25 07:06] LABS: Hematocrit 37.8 % (41.0-53.0); Hemoglobin 12.5 g/dL (13.5-17.5); Nucleated Red Blood Cells % 0.1 %
[2025-02-25 07:10] LABS: Mean Corpuscular Hemoglobin 28.9 pg (28.0-32.0); Mean Corpuscular Volume 87.1 fL (80.0-100.0)
[2025-02-25 07:18] LABS: Albumin 4.5 g/dL (3.2-4.8); BUN/Creatinine Ratio 34.8 (10.0-20.0); Calcium 10.2 mg/dL (8.7-10.4); Sodium 142 mmol/L (136-145); Total Protein 7.6 g/dL (5.7-8.2)
[2025-02-25 07:19] LABS: Bilirubin, Total 0.4 mg/dL (0.2-1.0)
[2025-02-25 07:28] LABS: Chloride 87 mmol/L (98-107); Potassium 3.3 mmol/L (3.5-5.1)
[2025-02-25 07:29] LABS: Alanine Aminotransferase 47 U/L (7-40); Alkaline Phosphatase 124 U/L (46-116); Anion Gap 14.99999 (5-15); Blood Urea Nitrogen 63 mg/dL (9-23); Carbon Dioxide > 40 mmol/L (20-31); Glucose 196 mg/dL (74-106)
[2025-02-25] MEDS: predniSONE 20 MG TAB PO SCH (08:49)
[2025-02-25 08:52] LABS: Base Excess 16.2 mmol/L (-2.0-3.0)
[2025-02-25] MEDS: IPRATROPIUM BROM 0.5 MG/2.5ML INH SOL NEB SCH (09:15)
--- NOTE | 2025-02-25 11:11 | DVHPN2 ---
Progress Note Date Seen: Feb 25, 2025 Medical Necessity Reason Pt with a Central, PICC or Fol: No Subjective Review of Systems: RESPIRATORY:Abnormal Other Systems: Patient seen and examined by myself today in follow-up, O2 nasal cannula Objective vital signs Vital Sign Date Time Temp Pulse Resp B/P (MAP) Pulse Ox O2 Delivery O2 Flow Rate FiO2 02/25/25 10:02 97.5 108 20 158/110 96 30 97.5 02/25/25 10:00 Nasal Cannula* 3 Total Intake and Output 02/24/25 02/24/25 02/25/25 14:59 22:59 06:59 Intake Total 288 ml 1380 ml 400 ml Output Total 1500 ml 900 ml Balance 288 ml -120 ml -500 ml medications Current Medications Medications Dose Ordered Sig/Bradley Route Start Time Stop Time Status Last Admin Dose Admin Aspirin 81 mg DAILY PO 02/21/25 10:00 02/25/25 08:49 81 MG Ondansetron HCl 4 mg Q4HP PRN IV 02/20/25 09:00 Docusate Sodium 100 mg BIDPRN PRN PO 02/20/25 09:00 Morphine Sulfate 2 mg Q4HPRN PRN IV 02/20/25 09:00 02/20/25 22:32 2 MG Enoxaparin Sodium 40 mg DAILY SC 02/20/25 09:00 02/25/25 08:49 40 MG Nitroglycerin 0.4 mg Q5MINP PRN SL 02/20/25 09:00 Allopurinol 100 mg DAILY PO 02/22/25 10:00 02/25/25 08:50 100 MG Acetaminophen/ Hydrocodone Bitart 1 tab Q6HPRN PRN PO 02/21/25 18:30 02/21/25 18:43 1 TAB Bumetanide 25 mg/ Miscellaneous 100 ml @ 4 mls/hr Q24H IV 02/22/25 18:15 02/24/25 18:15 4 MLS/HR Potassium Bicarbonate 50 meq DAILY PO 02/24/25 10:00 02/25/25 08:49 50 MEQ Metolazone 10 mg DAILY PO 02/24/25 10:00 02/25/25 08:49 10 MG Prednisone 40 mg DAILY PO 02/25/25 10:00 02/25/25 08:49 40 MG Cephalexin 500 mg Q8HR PO 02/24/25 22:00 02/25/25 05:42 500 MG Ipratropium [place] 0.5 mg Q4HR NEB 02/25/25 10:00 02/25/25 09:15 0.5 MG Examination: LUNGS:Normal, CVS:Normal, MSK:Abnormal laboratory and microbiology Laboratory Tests 02/25/25 05:51 Test 02/25/25 05:51 Range/Units Serum Glucose 196 H 74-106 mg/dL Microbiology Date/Time Source Procedure Growth Status 02/20/25 05:47 Blood Blood Culture - Final NO GROWTH AFTER 5 DAYS OF INCUBATION. Complete Problem List/Assessment/Plan Problem List/Assessment/Plan Acute kidney injury superimposed Chronic Kidney Disease secondary hemodynamic mediated Vancomycin nephrotoxicity Hypokalemic metabolic alkalosis Chronic CO2 retention Hypoventilation syndrome Vanco level greater than 40 Acute on chronic systolic Congestive heart failure exacerbation EF 20 Liver cirrhosis Anasarca Hypokalemia Hypomagnesemia Recommendations Kidney function is improving Increased urine output Decrease Bumex to half a mg per hour KCL replacement Magnesium sulfate IV piggyback DC vancomycin Kidney ultrasound reported within normal limit We will continue to follow up Plan discussed with: Patient Dietary Evaluation Review Comments: 1) cardiac + low purine diet 2) Monitoe PO intake, lab values, I/O, wt trend Expected Outcomes/Goals: lab vlaues to improve Fu 3-5 days AIDE JAIME MD Feb 25, 2025 11:11
--- NOTE | 2025-02-25 11:46 | DVH ---
EXAM: XY CHEST XRAY 1 VIEW CLINICAL HISTORY: Difficulty breathng TECHNIQUE: Single AP view of the chest WID: COMPARISON: XY CHEST PORTABLE on DOS: 02/20/25 FINDINGS: Lines and tubes: None Chest: Cardiomegaly with prominence of the pulmonary vasculature. No pleural effusion, pneumothorax, or consolidation. Linear left perihilar and bilateral lower lung o pacities likely atelectasis or scarring. The osseous structures are grossly intact. IMPRESSION: Cardiomegaly with mild pulmonary vascular congestion.
[2025-02-25] MEDS: POTASSIUM CHL 20MEQ/100ML 100 ML IV SCH (12:04)
[2025-02-25] MEDS: BUMETANIDE INJECTION 25 MG in GIVE UN-DILUTED 0 ML IV SCH (13:09)
[2025-02-25 13:39] LABS: Base Excess 23.1 mmol/L (-2.0-3.0)
--- NOTE | 2025-02-25 13:45 | DVHPN2 ---
Subjective DENIES ANY PAIN/denies any cough/looks rested /omn bipap Changes from previous H/P or p: No Changes Eyes: No Pain, No Vision change, No Conjunctivae inflammation, No Eyelid inflammation, No Other, No Redness ENT: No Ear pain, No Ear discharge, No Nose pain, No Nose discharge, No Nose congestion, No Mouth pain, No Mouth swelling, No Throat pain, No Throat swelling, No Other Cardiovascular: No Chest Pain, No Palpitations, No Orthopnea, No Paroxysmal Noc. Dyspnea; Edema; No Lt Headedness, No Other Respiratory: No Cough, No Dry; Shortness of breath, SOB with excertion; No Wheezing, No Hemoptysis, No Pleuritic Pain, No Sputum, No Other Gastrointestinal: No Nausea, No Vomiting; Abdominal Pain (Round in his firm); No Diarrhea, No Constipation, No Melena, No Hematochezia, No Other Genitourinary: No Dysuria, No Frequency, No Incontinence, No Hematuria, No Retention, No Other Musculoskeletal: No other, No neck pain, No shoulder pain, No arm pain, No back pain, No hand pain; leg pain, foot pain (Patient with discoloration of the right foot also redness and tenderness to the left foot compartments soft neurovascular intact) Skin: No Rash, No Lesions, No Jaundice, No Bruising, No Other Objective Vitals Vital Signs Date Time Temp Pulse Resp B/P (MAP) Pulse Ox O2 Delivery O2 Flow Rate FiO2 02/25/25 13:34 109 24 95 02/25/25 13:25 Nasal Cannula* 3 32 02/25/25 13:09 145/96 02/25/25 12:27 98.6 98.6 Intake/Output Intake and Output 02/25/25 07:00 Intake Total 2020 ml Output Total 2400 ml Balance -380 ml Intake Oral 2020 ml Output Urine Total 2400 ml # Bowel Movements 2 General Appearance: Alert, Oriented X3, Cooperative, No acute distress Lungs: Clear to auscultation, Normal air movement, Other Cardiovascular: Regular rate, Normal S1, Normal S2 Abdomen: Normal bowel sounds Musculoskeletal: Normal sensory function, Normal motor function Neuro: Normal gait, Normal speech, Strength at 5/5 X4 ext, Normal tone Psych/Mental Status: Mental status NL, Mood NL Medications Current Medications Medications Dose Ordered Sig/Bradley Route Start Time Stop Time Status Last Admin Dose Admin Aspirin 81 mg DAILY PO 02/21/25 10:00 02/25/25 08:49 81 MG Ondansetron HCl 4 mg Q4HP PRN IV 02/20/25 09:00 Docusate Sodium 100 mg BIDPRN PRN PO 02/20/25 09:00 Morphine Sulfate 2 mg Q4HPRN PRN IV 02/20/25 09:00 02/20/25 22:32 2 MG Enoxaparin Sodium 40 mg DAILY SC 02/20/25 09:00 02/25/25 08:49 40 MG Nitroglycerin 0.4 mg Q5MINP PRN SL 02/20/25 09:00 Allopurinol 100 mg DAILY PO 02/22/25 10:00 02/25/25 08:50 100 MG Acetaminophen/ Hydrocodone Bitart 1 tab Q6HPRN PRN PO 02/21/25 18:30 02/21/25 18:43 1 TAB Potassium Bicarbonate 50 meq DAILY PO 02/24/25 10:00 02/25/25 08:49 50 MEQ Metolazone 10 mg DAILY PO 02/24/25 10:00 02/25/25 08:49 10 MG Prednisone 40 mg DAILY PO 02/25/25 10:00 02/25/25 08:49 40 MG Cephalexin 500 mg Q8HR PO 02/24/25 22:00 02/25/25 05:42 500 MG Ipratropium [place] 0.5 mg Q4HR NEB 02/25/25 10:00 02/25/25 13:25 0.5 MG Bumetanide 25 mg/ Miscellaneous 100 ml @ 2 mls/hr Q24H IV 02/25/25 11:15 02/25/25 13:09 2 MLS/HR Potassium Chloride 100 ml @ 50 mls/hr Q2H IV 02/25/25 11:15 02/25/25 15:14 02/25/25 12:04 50 MLS/HR Magnesium Sulfate/ Dextrose 100 ml @ 100 mls/hr Q1HR IV 02/25/25 12:00 02/25/25 13:59 Laboratory Results Laboratory Tests 02/25/25 05:51 Chemistry Test 02/25/25 05:51 Albumin 4.5 g/dL (3.2-4.8) Calcium Level 10.2 mg/dL (8.7-10.4) Total Protein 7.6 g/dL (5.7-8.2) LFT Test 02/25/25 05:51 Alanine Aminotransferase (ALT) 47 U/L (7-40) H Alkaline Phosphatase 124 U/L (46-116) H Aspartate Amino Transferase (AST) 38 U/L (<34) H Total Bilirubin 0.4 mg/dL (0.2-1.0) Urinalysis Test 02/22/25 03:15 02/22/25 19:00 Urine Color Dark yellow (Yellow) Urine Clarity Turbid (Clear) H Urine pH 5.0 (5.0-9.0) Urine Specific [place] 1.023 (1.001-1.035) Urine Protein 1+ (Negative) H Urine Ketones Trace (Negative) Urine Blood Trace /uL (Negative) H Urine Nitrite Negative (Negative) Urine Bilirubin Negative (Negative) Urine Urobilinogen Normal mg/dL (Negative) Urine Leukocyte Esterase Negative /uL (Negative) Urine RBC 6 /hpf (0 - 3) Urine Microscopic WBC 7 /HPF (0-3) H Urine Squamous Epithelial Cells Few /hpf (<5) Urine Amorphous Crystals Few /hpf (None Seen) Urine Bacteria None seen /hpf (None Seen) Urine Glucose Normal mg/dL (Normal) Urine Creatinine 130.92 mg/dL (30.0-125.0) H Urine Protein/Creatinine Ratio 0.60 Urine Sodium < 10 mmol/L (40-220) L Urine Total Protein 78.2 mg/dL (1-14) H Blood Gas Results Test 02/25/25 08:48 02/25/25 13:30 Arterial Blood pH 7.388 (7.350-7.450) 7.465 (7.350-7.450) FiO2 % 32.0 30.0 Microbiology Microbiology Date/Time Source Procedure Growth Status 02/20/25 05:47 Blood Blood Culture - Final NO GROWTH AFTER 5 DAYS OF INCUBATION. Complete Assessment/Plan Assessment/Plan acute on chronic respiratory failure acute on chronic systoloc heart failure dilated cardiomyopathy obesity gout stable dvt prphylaxis cellulitis on admission/dd stasis dermatitis metabolic acidosis due to diuretics./and compensation for respiratory acidoisis Plan discussed with: Patient, Other Date of Service: Feb 25, 2025 Billing Provider: MAGDIEL SMALL MD Common Visit Codes: [id number] INP/OBS CARE(MOD) MAGDIEL SMALL MD Feb 25, 2025 13:45
[2025-02-25] MEDS: MAGNESIUM SULFATE 1GM/100ML 100 ML IV SCH (14:31)
[2025-02-25] MEDS: MAGNESIUM SULFATE 1GM/100ML 100 ML IV ONE (17:18)
[2025-02-26] VITALS (17 sets, daily range): BP systolic 108–144; BP diastolic 55–100; PULSE 50–114; RESP 16–21; TEMP 97.1–98.6; O2SAT 90–98
[2025-02-26 08:13] LABS: Hematocrit 38.2 % (41.0-53.0); Hemoglobin 12.8 g/dL (13.5-17.5); Mean Corpuscular Hemoglobin 29.0 pg (28.0-32.0); Mean Corpuscular Volume 86.6 fL (80.0-100.0); Nucleated Red Blood Cells % 0.1 %
[2025-02-26 08:22] LABS: Sodium 139 mmol/L (136-145)
[2025-02-26 08:28] LABS: Anion Gap 20.99999 (5-15); Calcium 11.3 mg/dL (8.7-10.4); Chloride 78 mmol/L (98-107); Potassium 2.9 mmol/L (3.5-5.1)
[2025-02-26 08:29] LABS: BUN/Creatinine Ratio 42.3 (10.0-20.0)
[2025-02-26 08:30] LABS: Blood Urea Nitrogen 60 mg/dL (9-23); Carbon Dioxide > 40 mmol/L (20-31); Glucose 162 mg/dL (74-106)
--- NOTE | 2025-02-26 10:24 | DVHPN2 ---
Progress Note Date Seen: Feb 26, 2025 Medical Necessity Reason Pt with a Central, PICC or Fol: No Subjective Review of Systems: RESPIRATORY:Abnormal Other Systems: Patient seen and examined by myself today in follow-up, patient remained on BiPAP Objective vital signs Vital Sign Date Time Temp Pulse Resp B/P (MAP) Pulse Ox O2 Delivery O2 Flow Rate FiO2 02/26/25 06:36 101 18 98 02/26/25 06:31 Nasal Cannula* 2 28 02/26/25 05:00 97.5 108/55 (72) 97.5 Total Intake and Output 02/25/25 02/25/25 02/26/25 15:00 23:00 07:00 Intake Total 522.67 ml 418.18 ml Output Total 1300 ml 1100 ml Balance -777.33 ml -681.82 ml medications Current Medications Medications Dose Ordered Sig/Bradley Route Start Time Stop Time Status Last Admin Dose Admin Aspirin 81 mg DAILY PO 02/21/25 10:00 02/25/25 08:49 81 MG Ondansetron HCl 4 mg Q4HP PRN IV 02/20/25 09:00 Docusate Sodium 100 mg BIDPRN PRN PO 02/20/25 09:00 Morphine Sulfate 2 mg Q4HPRN PRN IV 02/20/25 09:00 02/20/25 22:32 2 MG Enoxaparin Sodium 40 mg DAILY SC 02/20/25 09:00 02/25/25 08:49 40 MG Nitroglycerin 0.4 mg Q5MINP PRN SL 02/20/25 09:00 Allopurinol 100 mg DAILY PO 02/22/25 10:00 02/25/25 08:50 100 MG Acetaminophen/ Hydrocodone Bitart 1 tab Q6HPRN PRN PO 02/21/25 18:30 02/26/25 02:47 1 TAB Potassium Bicarbonate 50 meq DAILY PO 02/24/25 10:00 02/25/25 08:49 50 MEQ Metolazone 10 mg DAILY PO 02/24/25 10:00 02/25/25 08:49 10 MG Prednisone 40 mg DAILY PO 02/25/25 10:00 02/25/25 08:49 40 MG Cephalexin 500 mg Q8HR PO 02/24/25 22:00 02/26/25 05:32 500 MG Ipratropium [place] 0.5 mg Q4HR NEB 02/25/25 10:00 02/26/25 06:31 0.5 MG Bumetanide 25 mg/ Miscellaneous 100 ml @ 2 mls/hr Q24H IV 02/25/25 11:15 02/25/25 13:09 2 MLS/HR Examination: LUNGS:Normal, CVS:Normal, MSK:Abnormal laboratory and microbiology Laboratory Tests 02/26/25 07:02 Test 02/26/25 07:02 Range/Units Serum Glucose 162 H 74-106 mg/dL Microbiology Date/Time Source Procedure Growth Status 02/20/25 05:47 Blood Blood Culture - Final NO GROWTH AFTER 5 DAYS OF INCUBATION. Complete Problem List/Assessment/Plan Problem List/Assessment/Plan Acute kidney injury superimposed Chronic Kidney Disease secondary hemodynamic mediated Acute on chronic respiratory failure, patient on BiPAP Hypercarbia Vancomycin nephrotoxicity Hypokalemic metabolic alkalosis Chronic CO2 retention Hypoventilation syndrome Vanco level greater than 40 Acute on chronic systolic Congestive heart failure exacerbation EF 20 Liver cirrhosis Anasarca Hypokalemia Hypomagnesemia Recommendations Kidney function is improving Increased urine output Decrease Bumex to half a mg per hour KCL replacement Magnesium sulfate IV piggyback DC vancomycin Kidney ultrasound reported within normal limit We will continue to follow up Plan discussed with: Patient My Orders My Orders Orders - AIDE JAIME MD Procedure Category Date Status Time Give Un-Diluted PHA 02/25/25 In Process (Gi... W/Bumetanide 11:15 Potassium Effervesent PHA 02/26/25 Transmitted Tab (Klor-Con/Ef) 10:30 Magnesium Geovanni PHA 02/26/25 Transmitted 11:00 Dietary Evaluation Review Comments: 1) cardiac + low purine diet 2) Monitoe PO intake, lab values, I/O, wt trend Expected Outcomes/Goals: lab vlaues to improve Fu 3-5 days AIDE JAIME MD Feb 26, 2025 10:24
[2025-02-26] MEDS: POTASSIUM CHL 20 Meq TABLET PO STA (10:29)
[2025-02-26 11:36] LABS: Base Excess 21.1 mmol/L (-2.0-3.0)
[2025-02-26] MEDS: MAGNESIUM SULFATE 1GM/100ML 100 ML IV SCH (11:50)
[2025-02-26] MEDS: POTASSIUM EFFERVESENT TAB 25 MEQ PO SCH (11:50)
--- NOTE | 2025-02-26 13:28 | DVHPN2 ---
Subjective DENIES ANY PAIN/denies any cough/looks rested /omn bipap Changes from previous H/P or p: No Changes (only abg has changed/pt clinically looks same) Eyes: No Pain, No Vision change, No Conjunctivae inflammation, No Eyelid inflammation, No Other, No Redness ENT: No Ear pain, No Ear discharge, No Nose pain, No Nose discharge, No Nose congestion, No Mouth pain, No Mouth swelling, No Throat pain, No Throat swelling, No Other Cardiovascular: No Chest Pain, No Palpitations, No Orthopnea, No Paroxysmal Noc. Dyspnea; Edema; No Lt Headedness, No Other Respiratory: No Cough, No Dry; Shortness of breath, SOB with excertion; No Wheezing, No Hemoptysis, No Pleuritic Pain, No Sputum, No Other Gastrointestinal: No Nausea, No Vomiting; Abdominal Pain (Round in his firm); No Diarrhea, No Constipation, No Melena, No Hematochezia, No Other Genitourinary: No Dysuria, No Frequency, No Incontinence, No Hematuria, No Retention, No Other Musculoskeletal: No other, No neck pain, No shoulder pain, No arm pain, No back pain, No hand pain; leg pain, foot pain (Patient with discoloration of the right foot also redness and tenderness to the left foot compartments soft neurovascular intact) Skin: No Rash, No Lesions, No Jaundice, No Bruising, No Other Objective Vitals Vital Signs Date Time Temp Pulse Resp B/P (MAP) Pulse Ox O2 Delivery O2 Flow Rate FiO2 02/26/25 12:00 133/92 02/26/25 10:27 114 16 98 02/26/25 10:21 Nasal Cannula* 2 28 02/26/25 09:00 98.4 98.4 Intake/Output Intake and Output 02/26/25 07:00 Intake Total 940.85 ml Output Total 2400 ml Balance -1459.15 ml Intake Oral 850 ml IV Total 90.85 ml Output Urine Total 2400 ml # Bowel Movements 1 General Appearance: Alert, Oriented X3, Cooperative, No acute distress Lungs: Clear to auscultation, Normal air movement, Other Cardiovascular: Regular rate, Normal S1, Normal S2 Abdomen: Normal bowel sounds Musculoskeletal: Normal sensory function, Normal motor function Neuro: Normal gait, Normal speech, Strength at 5/5 X4 ext, Normal tone Psych/Mental Status: Mental status NL, Mood NL Medications Current Medications Medications Dose Ordered Sig/Bradley Route Start Time Stop Time Status Last Admin Dose Admin Aspirin 81 mg DAILY PO 02/21/25 10:00 02/26/25 10:19 81 MG Ondansetron HCl 4 mg Q4HP PRN IV 02/20/25 09:00 Docusate Sodium 100 mg BIDPRN PRN PO 02/20/25 09:00 Morphine Sulfate 2 mg Q4HPRN PRN IV 02/20/25 09:00 02/20/25 22:32 2 MG Enoxaparin Sodium 40 mg DAILY SC 02/20/25 09:00 02/26/25 10:19 40 MG Nitroglycerin 0.4 mg Q5MINP PRN SL 02/20/25 09:00 Allopurinol 100 mg DAILY PO 02/22/25 10:00 02/26/25 10:18 100 MG Acetaminophen/ Hydrocodone Bitart 1 tab Q6HPRN PRN PO 02/21/25 18:30 02/26/25 02:47 1 TAB Potassium Bicarbonate 50 meq DAILY PO 02/24/25 10:00 02/26/25 10:18 50 MEQ Metolazone 10 mg DAILY PO 02/24/25 10:00 02/26/25 10:19 10 MG Prednisone 40 mg DAILY PO 02/25/25 10:00 02/26/25 10:19 40 MG Cephalexin 500 mg Q8HR PO 02/24/25 22:00 02/26/25 05:32 500 MG Ipratropium [place] 0.5 mg Q4HR NEB 02/25/25 10:00 02/26/25 10:21 0.5 MG Bumetanide 25 mg/ Miscellaneous 100 ml @ 2 mls/hr Q24H IV 02/25/25 11:15 02/26/25 12:00 2 MLS/HR Potassium Bicarbonate 50 meq Q4HR PO 02/26/25 10:30 02/26/25 14:01 02/26/25 11:50 50 MEQ Laboratory Results Laboratory Tests 02/26/25 07:02 Chemistry Test 02/26/25 07:02 Calcium Level 11.3 mg/dL (8.7-10.4) H Urinalysis Test 02/22/25 03:15 02/22/25 19:00 Urine Color Dark yellow (Yellow) Urine Clarity Turbid (Clear) H Urine pH 5.0 (5.0-9.0) Urine Specific [place] 1.023 (1.001-1.035) Urine Protein 1+ (Negative) H Urine Ketones Trace (Negative) Urine Blood Trace /uL (Negative) H Urine Nitrite Negative (Negative) Urine Bilirubin Negative (Negative) Urine Urobilinogen Normal mg/dL (Negative) Urine Leukocyte Esterase Negative /uL (Negative) Urine RBC 6 /hpf (0 - 3) Urine Microscopic WBC 7 /HPF (0-3) H Urine Squamous Epithelial Cells Few /hpf (<5) Urine Amorphous Crystals Few /hpf (None Seen) Urine Bacteria None seen /hpf (None Seen) Urine Glucose Normal mg/dL (Normal) Urine Creatinine 130.92 mg/dL (30.0-125.0) H Urine Protein/Creatinine Ratio 0.60 Urine Sodium < 10 mmol/L (40-220) L Urine Total Protein 78.2 mg/dL (1-14) H Blood Gas Results Test 02/25/25 13:30 02/26/25 11:10 Arterial Blood pH 7.465 (7.350-7.450) 7.561 (7.350-7.450) FiO2 % 30.0 28.0 Microbiology Microbiology Date/Time Source Procedure Growth Status 02/20/25 05:47 Blood Blood Culture - Final NO GROWTH AFTER 5 DAYS OF INCUBATION. Complete Labs and/or images reviewed: Labs reviewed by me, Image(s) reviewed by me Assessment/Plan Assessment/Plan acute on chronic respiratory failure- consult pulmonary acute on chronic systolIc heart failure dilated cardiomyopathy secondary to alcohol obesity gout stable leucocytosis secondary to prednisone dvt prohylaxis cellulitis on admission/dd stasis dermatitis metabolic alkalosis due to diuretics./and compensation for respiratory acidoisis respiratory acidosis better- pulmonary consulted Plan discussed with: Patient, Other My Orders Orders - MAGDIEL SMALL MD Procedure Category Date Status Time Obtain Abg KERWIN 02/26/25 In Process 08:45 *Consult CONS 02/26/25 Transmitted / 08:46 Abg W/ Co-Ox RT 02/26/25 Logged 10:24 Date of Service: Feb 26, 2025 Billing Provider: MAGDIEL SMALL MD Common Visit Codes: [id number] INP/OBS CARE(HIGH) MAGDIEL SMALL MD Feb 26, 2025 13:28
--- NOTE | 2025-02-26 14:14 | DVHINCON2 ---
Date of service: Feb 26, [address] Clements Reason for Consultation NIKHIL History of Present Illness History Source: Patient Exam Limitations: No limitations HPI Patient is a 49-year old gentleman with a history of congestive heart failure and morbid obesity who presented with generalized swelling and shortness of breath. Was seen in the emergency room where the concern was raised for sepsis and the patient was started on IV antibiotics. During admission, he was noted to desaturate during sleep requiring bipap and pulmonology was consulted in view of suspected sleep apnea. Home Meds Reported Medications Spironolactone (Spironolactone) 25 Mg Tab, 1 TAB PO DAILY for 30 Days, #30 02/22/25 Atorvastatin Calcium (Lipitor) 20 Mg Tab, 1 TAB PO DAILY, #90 TAB 1 Refill 02/20/25 Famotidine (Gnp Acid Betting Clerk Maximum) 20 Mg Tab, 1 TAB PO BID, #60 TAB 3 Refills 02/20/25 Sacubitril-Valsartan (Entresto 49-51 mg) 1 Tab Tab, 1 TAB PO BID for 30 Days, #60 /25 Allopurinol (Allopurinol) 300 Mg Tab, 300 MG PO DAILY, TAB 02/20/25 Metoprolol Tartrate (Metoprolol Tartrate) 25 Mg Tab, 1 TAB PO BID, #180 TAB 1 Refill 02/20/25 Aspirin (Aspir-81) 81 Mg Tab, 1 TAB PO DAILY, #30 TAB 5 Refills 02/20/25 Furosemide (Furosemide) 40 Mg Tab, 1 TAB PO DAILY, #30 TAB 5 Refills 02/20/25 Past Medical History Cardiac: CHF Pulmonary: No pertinent Hx Central Nervous System: No pertinent Hx GI: No pertinent Hx Hemotology/Oncology: No pertinent Hx Hepatobiliary: No pertinent Hx Psychiatric: No pertinent Hx Musculoskeletal: No pertinent Hx Rheumotologic: No pertinent Hx Infectious Disease: No peritnent Hx ENT: No pertinent Hx Renal/: No pertinent Hx Endocrine: No pertinent Hx Dermatology: No pertinent Hx Past Surgical History: No pertinent Hx Family History: No pertinent Hx Patient Family History: Patient reports no known family medical history. Smoker: No Hx (Negative) Alocohol: None Drugs: None Lives with: With family Domestic Violence: Neg Review of Systems Constitutional: No symptom reported Ears, Nose, & Throat: No symptom reported Eyes: No symptom reported Pulmonary/Respiratory: Dyspnea Cardiovascular: No symptom reported Gastrointestinal: No symptom reported Genitourinary: No symptom reported Musculoskeletal: No symptom reported Skin: No symptom reported Psychiatric: No symptom reported Endocrine: No symptom reported Hemotologic/Lymphatic: No symptom reported H&P Exam Vital Signs Vital Signs Date Time Temp Pulse Resp B/P (MAP) Pulse Ox O2 Delivery O2 Flow Rate FiO2 02/26/25 13:36 109 91 Facial BiPAP Mask 30 02/26/25 13:00 97.4 20 133/92 (106) 97.4 02/26/25 10:21 2 General Appeara: Well developed, Well nourished, Normal Appearance Head Exam: Normal inspection Neck Exam: Normal inspection, Non-tender, Normal alignment Eye Exam: bilateral eye Normal inspection, bilateral eye PERRL, bilateral eye EOMI Ear Exam: bilateral ear Auricle normal, bilateral ear Canal normal, bilateral ear TM normal Nasal Exam: Normal inspection Mouth: Normal Inspection Pulmonary/Respiratory: Decreased breath sounds Cardiovascular/Chest: Normal inspection Peripheral Pulses: 4+ Radial (R), 4+ Radial (L), 4+ Brachial (R), 4+ Brachial (L) Abdominal Exam: Normal bowel sounds Labs/Xrays Labs Test 02/26/25 11:10 02/26/25 07:02 02/25/25 13:30 02/25/25 05:51 Range/Units Blood Gas Specimen Type Arterial Blood Gas Sample Site Left radial Blood Gas Patient Temperature 37.0 Arterial Blood Date Drawn [id number] Arterial Blood pH 7.561 *H 7.350-7.450 Arterial Blood Partial Pressure CO2 53.0 H 35.0-48.0 mmHg Arterial Blood Partial Pressure O2 55.9 L 83.0-108.0 mmHg Arterial Blood HCO3 46.5 H 21.0-28.0 mmol/L Arterial Blood Oxygen Saturation 88.6 L 94.0-98.0 % Arterial Blood Base Excess 21.1 H -2.0-3.0 mmol/L Arterial Blood Oxyhemoglobin 87.4 L 94.0-98.0 % Arterial Blood Carboxyhemoglobin 1.3 0.5-1.5 % Arterial Blood Methemoglobin 0.1 0.0-1.5 % Enrique Test Yes Blood Gas Total Hemoglobin 13.50 13.5-17.5 g/dL Blood Gas Liter Flow 2.00 Blood Gas Modality Nasal cannula FiO2 % 28.0 Blood Gas Critical Value Read Back Yes Blood Gas Notified Whom Vilma orr. Blood Gas Notified Time [id number] Blood Gas Notified By Winnie sullivan White Blood Count 14.8 H 4.4-10.8 10^3/uL Red Blood Count 4.41 L 4.5-5.90 10^6/uL Hemoglobin 12.8 L 13.5-17.5 g/dL Hematocrit 38.2 L 41.0-53.0 % Mean Corpuscular Volume 86.6 80.0-100.0 fL Mean Corpuscular Hemoglobin 29.0 28.0-32.0 pg Mean Corpuscular Hemoglobin Concent 33.5 32.0-36.0 g/dL Red Cell Distribution Width 13.9 11.8-14.3 % Platelet Count 505 H 140-450 10^3/uL Mean Platelet Volume 7.2 6.9-10.8 fL Neutrophils (%) (Auto) 81.0 H 37.0-80.0 % Lymphocytes (%) (Auto) 10.7 10.0-50.0 % Monocytes (%) (Auto) 7.4 0.0-12.0 % Eosinophils (%) (Auto) 0.7 0.0-7.0 % Basophils (%) (Auto) 0.2 0.0-2.0 % Neutrophils # (Auto) 12.0 H 1.6-8.6 10 ^3/uL Lymphocytes # (Auto) 1.6 0.4-5.4 10 ^3/uL Monocytes # (Auto) 1.1 0-1.3 10 ^3/uL Eosinophils # (Auto) 0.1 0-0.8 10 ^3/uL Basophils # (Auto) 0 0-0.2 10 ^3/uL Nucleated Red Blood Cells 0.1 % Sodium Level 139 136-145 mmol/L Potassium Level 2.9 L 3.5-5.1 mmol/L Chloride Level 78 L 98-107 mmol/L Carbon Dioxide Level > 40 *H 20-31 mmol/L Anion Gap 20.16862 H 5-15 Blood Urea Nitrogen 60 H 9-23 mg/dL Creatinine 1.42 H 0.700-1.30 mg/dL Glomerular Filtration Rate Calc 61 >90 mL/min BUN/Creatinine Ratio 42.3 H 10.0-20.0 Serum Glucose 162 H 74-106 mg/dL Calcium Level 11.3 H 8.7-10.4 mg/dL Blood Gas Set Respiration Rate 12.0 Blood Gas EPAP 5 Blood Gas IPAP 12 Total Bilirubin 0.4 0.2-1.0 mg/dL Aspartate Amino Transferase (AST) 38 H <34 U/L Alanine Aminotransferase (ALT) 47 H 7-40 U/L Alkaline Phosphatase 124 H 46-116 U/L Total Protein 7.6 5.7-8.2 g/dL Albumin 4.5 3.2-4.8 g/dL Test 02/22/25 19:00 02/22/25 05:04 02/22/25 03:15 02/21/25 12:01 Range/Units Urine Creatinine 130.92 H 30.0-125.0 mg/dL Urine Protein/Creatinine Ratio 0.60 Urine Sodium < 10 L 40-220 mmol/L Urine Total Protein 78.2 H 1-14 mg/dL Random Vancomycin Level 35.0 H 5-10 ug/mL Urine Color Dark yellow Yellow Urine Clarity Turbid H Clear Urine pH 5.0 5.0-9.0 Urine Specific [place] 1.023 1.001-1.035 Urine Protein 1+ H Negative Urine Ketones Trace Negative Urine Blood Trace H Negative /uL Urine Nitrite Negative Negative Urine Bilirubin Negative Negative Urine Urobilinogen Normal Negative mg/dL Urine Leukocyte Esterase Negative Negative /uL Urine RBC 6 0 - 3 /hpf Urine Microscopic WBC 7 H 0-3 /HPF Urine Squamous Epithelial Cells Few <5 /hpf Urine Amorphous Crystals Few None Seen /hpf Urine Bacteria None seen None Seen /hpf Urine Glucose Normal Normal mg/dL Vancomycin Level Trough 47.2 *H 5-10 ug/mL Test 02/21/25 06:25 02/20/25 09:11 02/20/25 07:48 02/20/25 03:26 Range/Units Magnesium Level 1.2 L 1.6-2.6 mg/dL B-Type Natriuretic Peptide 77.12 0-100 pg/mL Triglycerides Level 129 < 150 mg/dL Cholesterol Level 130 < 200 mg/dL LDL Cholesterol 77 < 100 mg/dL HDL Cholesterol 27 L 40-59 mg/dL Thyroid Stimulating Hormone (TSH) 0.68 0.55-4.78 uIU/mL D-Dimer, Quantitative 1.32 H 0.0-0.49 mg/L FEU Lactic Acid Level 1.9 0.4-2.0 mmol/L Uric Acid 10.1 H 3.7-9.2 mg/dL Troponin I High Sensitivity 49 </=54 ng/L Prothrombin Time 13.4 H 9.3-11.8 sec Prothrombin Time INR 1.30 H 0.9-1.15 Activated Partial Thromboplast Time 42.0 H 24.5-34.5 SEC Microbiology Date/Time Source Procedure Growth Status 02/20/25 05:47 Blood Blood Culture - Final NO GROWTH AFTER 5 DAYS OF INCUBATION. Complete Assessment/Plan Plan Impression Acute hypoxemic respiratory failure Obstructive sleep apnea Morbid obesity CHF MATEUS Patient seen and examined Events Low oxygen requirements On 2 liters nasal cannula Vital signs stable Labs and imaging reviewed Ultrasound of the lower extremities negative for clots Management Supplemental oxygen Titrate to maintain sats 90% or above Incentive spirometry Okay to use bipap 12/7 at night and during sleep Bronchodilators Monitor renal function F/u nephrology, management deferred Monitor electrolytes Supplement as needed Patient will require dedicated sleep study for NIKHIL DVT prophylaxis Plan discussed with: Patient KAYLENE PARKER MD Feb 26, 2025 14:14
[2025-02-27] VITALS (15 sets, daily range): BP systolic 119–136; BP diastolic 78–104; PULSE 55–121; RESP 16–23; TEMP 96–97.6; O2SAT 90–98
[2025-02-27 07:48] LABS: Calcium 11.9 mg/dL (8.7-10.4)
[2025-02-27 07:52] LABS: BUN/Creatinine Ratio 36.4 (10.0-20.0)
[2025-02-27 07:54] LABS: Chloride 69 mmol/L (98-107); Potassium 3.0 mmol/L (3.5-5.1); Sodium 135 mmol/L (136-145)
[2025-02-27 07:56] LABS: Anion Gap 25.99999 (5-15); Carbon Dioxide > 40 mmol/L (20-31)
[2025-02-27 07:57] LABS: Blood Urea Nitrogen 56 mg/dL (9-23); Glucose 188 mg/dL (74-106)
[2025-02-27] MEDS: IPRATROPIUM BROM 0.5 MG/2.5ML INH SOL NEB PRN (10:46)
--- NOTE | 2025-02-27 11:55 | DVHPN2 ---
Progress Note Date Seen: Feb 27, 2025 Medical Necessity Reason Pt with a Central, PICC or Fol: No Subjective Review of Systems: RESPIRATORY:Abnormal Other Systems: Patient seen and examined by myself today in follow-up, patient remained on O2 nasal cannula Objective vital signs Vital Sign Date Time Temp Pulse Resp B/P (MAP) Pulse Ox O2 Delivery O2 Flow Rate FiO2 02/27/25 10:57 61 16 98 02/27/25 10:46 Nasal Cannula 2.0 02/27/25 10:46 28 02/27/25 10:29 121/78 02/27/25 08:38 96.5 96.5 Total Intake and Output 02/26/25 02/26/25 02/27/25 15:00 23:00 07:00 Intake Total 218.35 ml 18.5 ml Balance 218.35 ml 18.5 ml medications Current Medications Medications Dose Ordered Sig/Bradley Route Start Time Stop Time Status Last Admin Dose Admin Aspirin 81 mg DAILY PO 02/21/25 10:00 02/27/25 10:30 81 MG Ondansetron HCl 4 mg Q4HP PRN IV 02/20/25 09:00 Docusate Sodium 100 mg BIDPRN PRN PO 02/20/25 09:00 Morphine Sulfate 2 mg Q4HPRN PRN IV 02/20/25 09:00 02/20/25 22:32 2 MG Enoxaparin Sodium 40 mg DAILY SC 02/20/25 09:00 02/27/25 10:30 40 MG Nitroglycerin 0.4 mg Q5MINP PRN SL 02/20/25 09:00 Allopurinol 100 mg DAILY PO 02/22/25 10:00 02/27/25 10:30 100 MG Acetaminophen/ Hydrocodone Bitart 1 tab Q6HPRN PRN PO 02/21/25 18:30 02/26/25 17:50 1 TAB Potassium Bicarbonate 50 meq DAILY PO 02/24/25 10:00 02/27/25 10:28 50 MEQ Metolazone 10 mg DAILY PO 02/24/25 10:00 02/27/25 10:29 10 MG Prednisone 40 mg DAILY PO 02/25/25 10:00 02/27/25 10:30 40 MG Cephalexin 500 mg Q8HR PO 02/24/25 22:00 02/27/25 05:41 500 MG Bumetanide 25 mg/ Miscellaneous 100 ml @ 2 mls/hr Q24H IV 02/25/25 11:15 02/26/25 12:00 2 MLS/HR Ipratropium [place] 0.5 mg Q4HPRN PRN NEB 02/27/25 06:00 02/27/25 10:46 0.5 MG Examination: LUNGS:Normal, CVS:Normal, MSK:Abnormal laboratory and microbiology Laboratory Tests 02/27/25 06:52 02/26/25 07:02 Test 02/27/25 06:52 Range/Units Serum Glucose 188 H 74-106 mg/dL Microbiology Date/Time Source Procedure Growth Status 02/20/25 05:47 Blood Blood Culture - Final NO GROWTH AFTER 5 DAYS OF INCUBATION. Complete Problem List/Assessment/Plan Problem List/Assessment/Plan Acute kidney injury superimposed Chronic Kidney Disease secondary hemodynamic mediated, FeNa < 1% Acute on chronic respiratory failure, patient on O2 supplement Hypercarbia Vancomycin nephrotoxicity Hypokalemic metabolic alkalosis Chronic CO2 retention Hypoventilation syndrome Vanco level greater than 40 Acute on chronic systolic Congestive heart failure exacerbation EF 20 Liver cirrhosis Anasarca Hypokalemia Hypomagnesemia Recommendations Kidney function is improving Increased urine output Decrease Bumex to half a mg per hour KCL replacement Magnesium sulfate IV piggyback Low-dose dopamine DC vancomycin Kidney ultrasound reported within normal limit We will continue to follow up Plan discussed with: Patient Dietary Evaluation Review Comments: 1) cardiac + low purine diet 2) Monitoe PO intake, lab values, I/O, wt trend Expected Outcomes/Goals: lab vlaues to improve Fu 3-5 days AIDE JAIME MD Feb 27, 2025 11:55
[2025-02-27] MEDS: DOPamine 1600MCG/ML D5W 250 ML IV SCH (12:41)
[2025-02-27] MEDS: MAGNESIUM SULFATE 1GM/100ML 100 ML IV SCH (13:05)
[2025-02-27] MEDS: POTASSIUM CHL 20MEQ/100ML 100 ML IV SCH (13:23)
[2025-02-27] MEDS: POTASSIUM EFFERVESENT TAB 25 MEQ PO ONE (13:39)
--- NOTE | 2025-02-27 13:54 | DVHPN2 ---
Subjective DENIES ANY PAIN/denies any cough/looks rested and comfortable Changes from previous H/P or p: No Changes Eyes: No Pain, No Vision change, No Conjunctivae inflammation, No Eyelid inflammation, No Other, No Redness ENT: No Ear pain, No Ear discharge, No Nose pain, No Nose discharge, No Nose congestion, No Mouth pain, No Mouth swelling, No Throat pain, No Throat swelling, No Other Cardiovascular: No Chest Pain, No Palpitations, No Orthopnea, No Paroxysmal Noc. Dyspnea; Edema; No Lt Headedness, No Other Respiratory: No Cough, No Dry; Shortness of breath, SOB with excertion; No Wheezing, No Hemoptysis, No Pleuritic Pain, No Sputum, No Other Gastrointestinal: No Nausea, No Vomiting; Abdominal Pain (Round in his firm); No Diarrhea, No Constipation, No Melena, No Hematochezia, No Other Genitourinary: No Dysuria, No Frequency, No Incontinence, No Hematuria, No Retention, No Other Musculoskeletal: No other, No neck pain, No shoulder pain, No arm pain, No back pain, No hand pain; leg pain, foot pain (Patient with discoloration of the right foot also redness and tenderness to the left foot compartments soft neurovascular intact) Skin: No Rash, No Lesions, No Jaundice, No Bruising, No Other Objective Vitals Vital Signs Date Time Temp Pulse Resp B/P (MAP) Pulse Ox O2 Delivery O2 Flow Rate FiO2 02/27/25 12:41 136/99 02/27/25 12:33 96.0 68 21 91 96.0 02/27/25 10:46 Nasal Cannula 2.0 02/27/25 10:46 28 Intake/Output Intake and Output 02/27/25 07:00 Intake Total 236.85 ml Balance 236.85 ml IV Total 236.85 ml General Appearance: Alert, Oriented X3, Cooperative, No acute distress Lungs: Clear to auscultation, Normal air movement, Other Cardiovascular: Regular rate, Normal S1, Normal S2 Abdomen: Normal bowel sounds Musculoskeletal: Normal sensory function, Normal motor function Neuro: Normal gait, Normal speech, Strength at 5/5 X4 ext, Normal tone Psych/Mental Status: Mental status NL, Mood NL Medications Current Medications Medications Dose Ordered Sig/Bradley Route Start Time Stop Time Status Last Admin Dose Admin Aspirin 81 mg DAILY PO 02/21/25 10:00 02/27/25 10:30 81 MG Ondansetron HCl 4 mg Q4HP PRN IV 02/20/25 09:00 Docusate Sodium 100 mg BIDPRN PRN PO 02/20/25 09:00 Morphine Sulfate 2 mg Q4HPRN PRN IV 02/20/25 09:00 02/20/25 22:32 2 MG Enoxaparin Sodium 40 mg DAILY SC 02/20/25 09:00 02/27/25 10:30 40 MG Nitroglycerin 0.4 mg Q5MINP PRN SL 02/20/25 09:00 Allopurinol 100 mg DAILY PO 02/22/25 10:00 02/27/25 10:30 100 MG Acetaminophen/ Hydrocodone Bitart 1 tab Q6HPRN PRN PO 02/21/25 18:30 02/26/25 17:50 1 TAB Potassium Bicarbonate 50 meq DAILY PO 02/24/25 10:00 02/27/25 10:28 50 MEQ Metolazone 10 mg DAILY PO 02/24/25 10:00 02/27/25 10:29 10 MG Prednisone 40 mg DAILY PO 02/25/25 10:00 02/27/25 10:30 40 MG Cephalexin 500 mg Q8HR PO 02/24/25 22:00 02/27/25 13:39 500 MG Bumetanide 25 mg/ Miscellaneous 100 ml @ 2 mls/hr Q24H IV 02/25/25 11:15 02/27/25 12:39 2 MLS/HR Ipratropium [place] 0.5 mg Q4HPRN PRN NEB 02/27/25 06:00 02/27/25 10:46 0.5 MG Dopamine HCl/ Dextrose 250 ml @ 9.563 mls/ hr Q24H IV 02/27/25 12:00 02/27/25 12:41 9.563 MLS/HR Potassium Chloride 100 ml @ 50 mls/hr Q2H IV 02/27/25 12:00 02/27/25 15:59 02/27/25 13:23 50 MLS/HR Magnesium Sulfate/ Dextrose 100 ml @ 100 mls/hr Q1HR IV 02/27/25 12:00 02/27/25 13:59 02/27/25 13:05 100 MLS/HR Laboratory Results Laboratory Tests 02/26/25 07:02 02/27/25 06:52 Chemistry Test 02/27/25 06:52 Calcium Level 11.9 mg/dL (8.7-10.4) H Urinalysis Test 02/22/25 03:15 02/22/25 19:00 Urine Color Dark yellow (Yellow) Urine Clarity Turbid (Clear) H Urine pH 5.0 (5.0-9.0) Urine Specific [place] 1.023 (1.001-1.035) Urine Protein 1+ (Negative) H Urine Ketones Trace (Negative) Urine Blood Trace /uL (Negative) H Urine Nitrite Negative (Negative) Urine Bilirubin Negative (Negative) Urine Urobilinogen Normal mg/dL (Negative) Urine Leukocyte Esterase Negative /uL (Negative) Urine RBC 6 /hpf (0 - 3) Urine Microscopic WBC 7 /HPF (0-3) H Urine Squamous Epithelial Cells Few /hpf (<5) Urine Amorphous Crystals Few /hpf (None Seen) Urine Bacteria None seen /hpf (None Seen) Urine Glucose Normal mg/dL (Normal) Urine Creatinine 130.92 mg/dL (30.0-125.0) H Urine Protein/Creatinine Ratio 0.60 Urine Sodium < 10 mmol/L (40-220) L Urine Total Protein 78.2 mg/dL (1-14) H Microbiology Microbiology Date/Time Source Procedure Growth Status 02/20/25 05:47 Blood Blood Culture - Final NO GROWTH AFTER 5 DAYS OF INCUBATION. Complete Labs and/or images reviewed: Labs reviewed by me, Image(s) reviewed by me Assessment/Plan Assessment/Plan acute on chronic respiratory failure- consult pulmonary acute on chronic systolIc heart failure-still on bumex drip dilated cardiomyopathy secondary to alcohol obesity gout stable leucocytosis secondary to prednisone dvt prohylaxis cellulitis on admission/dd stasis dermatitis metabolic alkalosis due to diuretics./and compensation for respiratory acidoisis respiratory acidosis better- pulmonary consulted -awaiting input on need for bipap on discharge/o2 level 2 or 3l at baseline Plan discussed with: Patient, Other Date of Service: Feb 27, 2025 Billing Provider: MAGDIEL SMALL MD Common Visit Codes: [id number] INP/OBS CARE(HIGH) MAGDIEL SMALL MD Feb 27, 2025 13:54
--- NOTE | 2025-02-27 16:14 | DVHPN2 ---
Progress Note - Dictate Date Seen: Feb 27, 2025 Medical Necessity Reason Pt with a Central, PICC or Fol: No vital signs Vital Sign Date Time Temp Pulse Resp B/P (MAP) Pulse Ox O2 Delivery O2 Flow Rate FiO2 02/27/25 12:41 136/99 02/27/25 12:33 96.0 68 21 91 96.0 02/27/25 10:46 Nasal Cannula 2.0 02/27/25 10:46 28 Total Intake and Output 02/26/25 02/26/25 02/27/25 15:00 23:00 07:00 Intake Total 218.35 ml 18.5 ml Balance 218.35 ml 18.5 ml medications Current Medications Medications Dose Ordered Sig/Bradley Route Start Time Stop Time Status Last Admin Dose Admin Aspirin 81 mg DAILY PO 02/21/25 10:00 02/27/25 10:30 81 MG Ondansetron HCl 4 mg Q4HP PRN IV 02/20/25 09:00 Docusate Sodium 100 mg BIDPRN PRN PO 02/20/25 09:00 Morphine Sulfate 2 mg Q4HPRN PRN IV 02/20/25 09:00 02/20/25 22:32 2 MG Enoxaparin Sodium 40 mg DAILY SC 02/20/25 09:00 02/27/25 10:30 40 MG Nitroglycerin 0.4 mg Q5MINP PRN SL 02/20/25 09:00 Allopurinol 100 mg DAILY PO 02/22/25 10:00 02/27/25 10:30 100 MG Acetaminophen/ Hydrocodone Bitart 1 tab Q6HPRN PRN PO 02/21/25 18:30 02/26/25 17:50 1 TAB Potassium Bicarbonate 50 meq DAILY PO 02/24/25 10:00 02/27/25 10:28 50 MEQ Metolazone 10 mg DAILY PO 02/24/25 10:00 02/27/25 10:29 10 MG Prednisone 40 mg DAILY PO 02/25/25 10:00 02/27/25 10:30 40 MG Cephalexin 500 mg Q8HR PO 02/24/25 22:00 02/27/25 13:39 500 MG Bumetanide 25 mg/ Miscellaneous 100 ml @ 2 mls/hr Q24H IV 02/25/25 11:15 02/27/25 12:39 2 MLS/HR Ipratropium [place] 0.5 mg Q4HPRN PRN NEB 02/27/25 06:00 02/27/25 10:46 0.5 MG Dopamine HCl/ Dextrose 250 ml @ 9.563 mls/ hr Q24H IV 02/27/25 12:00 02/27/25 12:41 9.563 MLS/HR laboratory and microbiology Laboratory Tests 02/27/25 06:52 02/26/25 07:02 Test 02/27/25 06:52 Range/Units Serum Glucose 188 H 74-106 mg/dL Assessment/Plan Impression Acute hypoxemic respiratory failure Obstructive sleep apnea Morbid obesity CHF MATEUS Patient seen and examined Events Low oxygen requirements On 2 liters nasal cannula No acute events Labs and imaging reviewed Management Supplemental oxygen Titrate to maintain sats 90% or above Incentive spirometry Okay to use bipap 08/14 at night and during sleep Bronchodilators Monitor renal function F/u nephrology, management deferred Monitor electrolytes Supplement as needed Patient will require dedicated sleep study for NIKHIL Okay to discharge from pulmonary standpoint DVT prophylaxis Dietary Evaluation Review Comments: 1) cardiac + low purine diet 2) Monitoe PO intake, lab values, I/O, wt trend Expected Outcomes/Goals: lab vlaues to improve Fu 3-5 days Plan discussed with: Patient KAYLENE PARKER MD Feb 27, 2025 16:14
[2025-02-28] VITALS (10 sets, daily range): BP systolic 102–135; BP diastolic 68–89; PULSE 57–115; RESP 18–20; TEMP 97.4–98.9; O2SAT 90–95
[2025-02-28 05:41] LABS: Anion Gap 22.99999 (5-15); Chloride 68 mmol/L (98-107); Potassium 2.6 mmol/L (3.5-5.1); Sodium 131 mmol/L (136-145)
[2025-02-28 05:42] LABS: Calcium 11.3 mg/dL (8.7-10.4); Glucose 204 mg/dL (74-106)
[2025-02-28 05:43] LABS: BUN/Creatinine Ratio 35.4 (10.0-20.0); Blood Urea Nitrogen 58 mg/dL (9-23); Carbon Dioxide > 40 mmol/L (20-31)
--- NOTE | 2025-02-28 10:41 | DVHPN2 ---
Progress Note Date Seen: Feb 28, 2025 Medical Necessity Reason Pt with a Central, PICC or Fol: No Subjective Review of Systems: RESPIRATORY:Abnormal Other Systems: Patient seen and examined by myself today in follow-up, patient on O2 nasal supplement Objective vital signs Vital Sign Date Time Temp Pulse Resp B/P (MAP) Pulse Ox O2 Delivery O2 Flow Rate FiO2 02/28/25 10:00 115 18 111/71 93 02/28/25 09:46 Nasal Cannula* 3 32 02/28/25 09:00 98.4 98.4 Total Intake and Output 02/27/25 02/27/25 02/28/25 15:00 23:00 07:00 Intake Total 900 ml 2234.8 ml 988.97 ml Output Total 650 ml 500 ml Balance 900 ml 1584.8 ml 488.97 ml medications Current Medications Medications Dose Ordered Sig/Bradley Route Start Time Stop Time Status Last Admin Dose Admin Aspirin 81 mg DAILY PO 02/21/25 10:00 02/28/25 09:15 81 MG Ondansetron HCl 4 mg Q4HP PRN IV 02/20/25 09:00 Docusate Sodium 100 mg BIDPRN PRN PO 02/20/25 09:00 Morphine Sulfate 2 mg Q4HPRN PRN IV 02/20/25 09:00 02/20/25 22:32 2 MG Enoxaparin Sodium 40 mg DAILY SC 02/20/25 09:00 02/28/25 09:13 40 MG Nitroglycerin 0.4 mg Q5MINP PRN SL 02/20/25 09:00 Allopurinol 100 mg DAILY PO 02/22/25 10:00 02/28/25 09:14 100 MG Acetaminophen/ Hydrocodone Bitart 1 tab Q6HPRN PRN PO 02/21/25 18:30 02/26/25 17:50 1 TAB Potassium Bicarbonate 50 meq DAILY PO 02/24/25 10:00 02/28/25 09:16 50 MEQ Metolazone 10 mg DAILY PO 02/24/25 10:00 02/28/25 09:15 10 MG Prednisone 40 mg DAILY PO 02/25/25 10:00 02/28/25 09:14 40 MG Cephalexin 500 mg Q8HR PO 02/24/25 22:00 02/28/25 05:39 500 MG Bumetanide 25 mg/ Miscellaneous 100 ml @ 2 mls/hr Q24H IV 02/25/25 11:15 02/27/25 12:39 2 MLS/HR Ipratropium [place] 0.5 mg Q4HPRN PRN NEB 02/27/25 06:00 02/27/25 16:24 0.5 MG Dopamine HCl/ Dextrose 250 ml @ 9.563 mls/ hr Q24H IV 02/27/25 12:00 02/27/25 12:41 9.563 MLS/HR Examination: LUNGS:Normal, CVS:Normal, MSK:Abnormal laboratory and microbiology Laboratory Tests 02/28/25 04:36 02/26/25 07:02 Test 02/28/25 04:36 Range/Units Serum Glucose 204 H 74-106 mg/dL Microbiology Date/Time Source Procedure Growth Status 02/20/25 05:47 Blood Blood Culture - Final NO GROWTH AFTER 5 DAYS OF INCUBATION. Complete Problem List/Assessment/Plan Problem List/Assessment/Plan Acute kidney injury superimposed Chronic Kidney Disease secondary hemodynamic mediated, FeNa < 1% Acute on chronic respiratory failure, patient on O2 supplement Hypercarbia Vancomycin nephrotoxicity Hypokalemic metabolic alkalosis Chronic CO2 retention Hypoventilation syndrome Vanco level greater than 40 Acute on chronic systolic Congestive heart failure exacerbation EF 20 Liver cirrhosis Anasarca Hypokalemia Hypomagnesemia Hypercalcemia Recommendations Kidney function is improving Increased urine output Decrease Bumex to half a mg per hour KCL replacement Magnesium sulfate IV piggyback Low-dose dopamine DC vancomycin Check 25 hydroxyvitamin D and PTH and phosphorus Kidney ultrasound reported within normal limit We will continue to follow up Plan discussed with: Patient My Orders My Orders Orders - AIDE JAIME MD Procedure Category Date Status Time Dopamine 1600mcg/Ml PHA 02/27/25 In Process [id number] 12:00 Dietary Evaluation Review Comments: 1) cardiac + low purine diet 2) Monitoe PO intake, lab values, I/O, wt trend Expected Outcomes/Goals: lab vlaues to improve Fu 3-5 days AIDE JAIME MD Feb 28, 2025 10:40
[2025-02-28] MEDS: MAGNESIUM SULFATE 1GM/100ML 100 ML IV SCH (11:30)
[2025-02-28] MEDS: POTASSIUM EFFERVESENT TAB 25 MEQ PO SCH (11:30)
--- NOTE | 2025-02-28 15:11 | DVHPN2 ---
Progress Note Date Seen: Feb 28, 2025 Medical Necessity Reason Pt with a Central, PICC or Fol: No Subjective Patient reports: No new complaints Review of Systems: HEENT:Normal, CVS:Normal, RESPIRATORY:Normal, GI:Normal, :Normal, MSK:Normal, NEURO:Normal Objective vital signs Vital Sign Date Time Temp Pulse Resp B/P (MAP) Pulse Ox O2 Delivery O2 Flow Rate FiO2 02/28/25 12:48 98.9 113 20 102/72 (82) 90 98.9 02/28/25 09:46 Nasal Cannula* 3 32 Total Intake and Output 02/27/25 02/27/25 02/28/25 15:00 23:00 07:00 Intake Total 900 ml 2234.8 ml 988.97 ml Output Total 650 ml 500 ml Balance 900 ml 1584.8 ml 488.97 ml medications Current Medications Medications Dose Ordered Sig/Bradley Route Start Time Stop Time Status Last Admin Dose Admin Aspirin 81 mg DAILY PO 02/21/25 10:00 02/28/25 09:15 81 MG Ondansetron HCl 4 mg Q4HP PRN IV 02/20/25 09:00 Docusate Sodium 100 mg BIDPRN PRN PO 02/20/25 09:00 Morphine Sulfate 2 mg Q4HPRN PRN IV 02/20/25 09:00 02/20/25 22:32 2 MG Enoxaparin Sodium 40 mg DAILY SC 02/20/25 09:00 02/28/25 09:13 40 MG Nitroglycerin 0.4 mg Q5MINP PRN SL 02/20/25 09:00 Allopurinol 100 mg DAILY PO 02/22/25 10:00 02/28/25 09:14 100 MG Acetaminophen/ Hydrocodone Bitart 1 tab Q6HPRN PRN PO 02/21/25 18:30 02/26/25 17:50 1 TAB Potassium Bicarbonate 50 meq DAILY PO 02/24/25 10:00 02/28/25 09:16 50 MEQ Metolazone 10 mg DAILY PO 02/24/25 10:00 02/28/25 09:15 10 MG Prednisone 40 mg DAILY PO 02/25/25 10:00 02/28/25 09:14 40 MG Cephalexin 500 mg Q8HR PO 02/24/25 22:00 02/28/25 13:14 500 MG Ipratropium [place] 0.5 mg Q4HPRN PRN NEB 02/27/25 06:00 02/27/25 16:24 0.5 MG Dopamine HCl/ Dextrose 250 ml @ 9.563 mls/ hr Q24H IV 02/27/25 12:00 02/28/25 11:38 9.563 MLS/HR Potassium Bicarbonate 50 meq Q4HR PO 02/28/25 10:45 02/28/25 18:01 02/28/25 13:14 50 MEQ Bumetanide 1 mg DAILY IV 03/01/25 10:00 Examination: GENERAL:Normal, HEENT:Normal, NECK:Normal, LUNGS:Normal, CVS:Normal, ABDOMEN:Normal, MSK:Normal, SKIN:Normal, NEURO:Normal, :Normal laboratory and microbiology Laboratory Tests 02/28/25 04:36 02/26/25 07:02 Test 02/28/25 04:36 Range/Units Serum Glucose 204 H 74-106 mg/dL Microbiology Date/Time Source Procedure Growth Status 02/20/25 05:47 Blood Blood Culture - Final NO GROWTH AFTER 5 DAYS OF INCUBATION. Complete Problem List/Assessment/Plan Problem List/Assessment/Plan #1 acute resp failure: check abg #2 gout with flare up: steroids, allopurinol #3 morbid obesity #4 alcoholic dilated cardiomyopathy #5 ? acute systolic heart failure: bumex #6 acute renal failure ?vasomotor nephropathy: bumex , metolazone #7 liver cirrhosis- alcoholic #8 sepsis with cellulitis: cephalexin advance care planning- full code- time spent 18 mins Plan discussed with: Patient, Spouse My Orders My Orders Orders - ANA POTTER MD Procedure Category Date Status Time Abg W/ Co-Ox RT 02/28/25 Logged 15:07 Dietary Evaluation Review Comments: 1) cardiac + low purine diet 2) Monitoe PO intake, lab values, I/O, wt trend Expected Outcomes/Goals: lab vlaues to improve Fu 3-5 days Date of Service: Feb 28, 2025 Billing Provider: ANA POTTER MD Common Visit Codes: [id number] INP/OBS CARE(HIGH) Secondary Visit Codes: [id number] CARE PLAN 30 MINUTES ANA POTTER MD Feb 28, 2025 15:11
[2025-02-28 15:37] LABS: Base Excess 26.6 mmol/L (-2.0-3.0)
--- NOTE | 2025-02-28 19:00 | DVH ---
EXAM: CT HEAD WITHOUT CONTRAST INDICATION: cva TECHNIQUE: CT of the head without intravenous contrast. Radiation Dose Information: CT Dose: CTDI volume is 53.99 mGy. Dose-length product is 971.88 mGy*cm The dose indicators for CT are the volume Computed Tomography (CT) Dose Index (CTDIvol) and the Dose Length Product (DLP), and are measured in units of mGy and mGy-cm, respectively. These indicators are not patient dose, but values generated from the CT scanner acquisition factors. The report includes radiation exposure data for exposures received during this examination. COMPARISON: None FINDINGS: There is no evidence of acute intracranial hemorrhage, extra-axial collection, mass effect, midline s hift, herniation or hydrocephalus. The ventricles, sulci and cisterns are age appropriate. The soto-white differentiation is intact. Patchy periventricular and subcortical white matter hypoattenuation is nonspecific but may be related to small vessel ischemic disease. The visualized paranasal sinuses and mastoid air cells are clear. The surrounding soft tissues and osseous structures are unremarkable. IMPRESSION: 1. No acute intracranial abnormality.
[2025-02-28] MEDS: ONDANSETRON HCL 4 MG/2 ML VIAL IV PRN (22:28)
[2025-03-01] VITALS (11 sets, daily range): BP systolic 101–152; BP diastolic 62–102; PULSE 64–107; RESP 19–24; TEMP 97.3–98.5; O2SAT 91–96
--- NOTE | 2025-03-01 06:40 | DVH ---
EXAM: XR Chest, 1 View CLINICAL INDICATION: CHF TECHNIQUE: Frontal view of the chest. COMPARISON: No relevant prior studies available. FINDINGS: LUNGS AND PLEURAL SPACES: See below. HEART: Cardiomegaly with mild congestion. MEDIASTINUM: Unremarkable. Normal mediastinal contour. BONES/JOINTS: Unremarkable. No acute fracture. OTHER FINDINGS: Comparison XY CHEST XRAY 1 VIEW on DOS: 02/25/25, XY CHEST PORTABLE on DOS: 02/20/25. . . IMPRESSION: Cardiomegaly with mild congestion. HS:Y
--- NOTE | 2025-03-01 07:27 | ECG ---
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
--- NOTE | 2025-03-01 07:27 | ECG ---
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
[2025-03-01] MEDS: predniSONE 20 MG TAB PO SCH (08:26)
[2025-03-01] MEDS: BUMETANIDE 1mg/4ml VIAL (0.25mg/ml) IV SCH (08:27)
[2025-03-01 09:13] LABS: Hematocrit 38.2 % (41.0-53.0); Hemoglobin 12.9 g/dL (13.5-17.5); Mean Corpuscular Hemoglobin 28.9 pg (28.0-32.0); Mean Corpuscular Volume 85.8 fL (80.0-100.0)
[2025-03-01 09:27] LABS: Alanine Aminotransferase 21 U/L (7-40); Albumin 4.3 g/dL (3.2-4.8); Alkaline Phosphatase 103 U/L (46-116); BUN/Creatinine Ratio 32.6 (10.0-20.0); Total Protein 7.1 g/dL (5.7-8.2)
[2025-03-01 09:28] LABS: Bilirubin, Total 1.0 mg/dL (0.2-1.0)
[2025-03-01 09:42] LABS: Anion Gap 21.99999 (5-15); Blood Urea Nitrogen 56 mg/dL (9-23); Calcium 10.8 mg/dL (8.7-10.4); Carbon Dioxide > 40 mmol/L (20-31); Chloride 64 mmol/L (98-107); Glucose 205 mg/dL (74-106); Potassium 2.8 mmol/L (3.5-5.1); Sodium 126 mmol/L (136-145)
[2025-03-01 11:44] LABS: Total Cells Counted 100.0 (100)
--- NOTE | 2025-03-01 11:47 | DVHPN2 ---
Progress Note Date Seen: Mar 01, 2025 Medical Necessity Reason Pt with a Central, PICC or Fol: No Subjective Patient reports: No new complaints Other Systems: Patient seen and examined by myself today in follow-up Objective vital signs Vital Sign Date Time Temp Pulse Resp B/P (MAP) Pulse Ox O2 Delivery O2 Flow Rate FiO2 03/01/25 09:53 94 Nasal Cannula* 3 32 03/01/25 09:00 97.7 104 20 119/74 (89) 97.7 Total Intake and Output 02/28/25 02/28/25 03/01/25 15:00 23:00 07:00 Intake Total 590 ml 270 ml Balance 590 ml 270 ml medications Current Medications Medications Dose Ordered Sig/Bradley Route Start Time Stop Time Status Last Admin Dose Admin Aspirin 81 mg DAILY PO 02/21/25 10:00 03/01/25 08:26 81 MG Ondansetron HCl 4 mg Q4HP PRN IV 02/20/25 09:00 03/01/25 05:47 4 MG Docusate Sodium 100 mg BIDPRN PRN PO 02/20/25 09:00 Morphine Sulfate 2 mg Q4HPRN PRN IV 02/20/25 09:00 02/20/25 22:32 2 MG Enoxaparin Sodium 40 mg DAILY SC 02/20/25 09:00 03/01/25 08:27 40 MG Nitroglycerin 0.4 mg Q5MINP PRN SL 02/20/25 09:00 Allopurinol 100 mg DAILY PO 02/22/25 10:00 03/01/25 08:26 100 MG Acetaminophen/ Hydrocodone Bitart 1 tab Q6HPRN PRN PO 02/21/25 18:30 02/26/25 17:50 1 TAB Potassium Bicarbonate 50 meq DAILY PO 02/24/25 10:00 03/01/25 08:25 50 MEQ Cephalexin 500 mg Q8HR PO 02/24/25 22:00 03/01/25 05:49 500 MG Ipratropium [place] 0.5 mg Q4HPRN PRN NEB 02/27/25 06:00 02/27/25 16:24 0.5 MG Dopamine HCl/ Dextrose 250 ml @ 9.563 mls/ hr Q24H IV 02/27/25 12:00 02/28/25 11:38 9.563 MLS/HR Bumetanide 1 mg DAILY IV 03/01/25 10:00 03/01/25 08:27 1 MG Prednisone 30 mg DAILY PO 03/01/25 10:00 03/01/25 08:26 30 MG Examination: LUNGS:Normal, CVS:Normal, MSK:Normal laboratory and microbiology Laboratory Tests 03/01/25 08:47 Test 03/01/25 08:47 Range/Units Serum Glucose 205 H 74-106 mg/dL Microbiology Date/Time Source Procedure Growth Status 02/20/25 05:47 Blood Blood Culture - Final NO GROWTH AFTER 5 DAYS OF INCUBATION. Complete Problem List/Assessment/Plan Problem List/Assessment/Plan Acute kidney injury superimposed Chronic Kidney Disease secondary hemodynamic mediated, FeNa < 1% Acute on chronic respiratory failure, patient on O2 supplement Hypercarbia Vancomycin nephrotoxicity Hypokalemic metabolic alkalosis Chronic CO2 retention Hypoventilation syndrome Vanco level greater than 40 Acute on chronic systolic Congestive heart failure exacerbation EF 20 Liver cirrhosis Anasarca Hypokalemia Hypomagnesemia Hypercalcemia Vitamin-D deficiency Recommendations Kidney function is improving Increased urine output Discontinue Bumex drip Bumex 1 mg IV q.day DC metolazone due to hyponatremia KCL replacement Magnesium sulfate IV piggyback Low-dose dopamine DC vancomycin Kidney ultrasound reported within normal limit We will continue to follow up Plan discussed with: Patient Dietary Evaluation Review Comments: 1) cardiac + low purine diet 2) Monitoe PO intake, lab values, I/O, wt trend Expected Outcomes/Goals: lab vlaues to improve Fu 3-5 days AIDE JAIME MD Mar 01, 2025 11:47
[2025-03-01] MEDS: MAGNESIUM SULFATE 1GM/100ML 100 ML IV SCH (13:19)
[2025-03-01 13:22] LABS: Nucleated Red Blood Cells % 0.0 %
[2025-03-01 13:24] LABS: Hematocrit 38.6 % (41.0-53.0); Hemoglobin 13.2 g/dL (13.5-17.5); Mean Corpuscular Hemoglobin 29.4 pg (28.0-32.0); Mean Corpuscular Volume 86.2 fL (80.0-100.0)
--- NOTE | 2025-03-01 14:10 | DVHPN2 ---
Progress Note Date Seen: Mar 01, 2025 Medical Necessity Reason Pt with a Central, PICC or Fol: No Subjective Patient reports: No new complaints Review of Systems: HEENT:Normal, CVS:Normal, RESPIRATORY:Normal, GI:Normal, :Normal, MSK:Normal, NEURO:Normal Objective vital signs Vital Sign Date Time Temp Pulse Resp B/P (MAP) Pulse Ox O2 Delivery O2 Flow Rate FiO2 03/01/25 13:00 97.3 105 22 101/62 (75) 94 97.3 03/01/25 09:53 Nasal Cannula* 3 32 Total Intake and Output 02/28/25 02/28/25 03/01/25 15:00 23:00 07:00 Intake Total 590 ml 270 ml Balance 590 ml 270 ml medications Current Medications Medications Dose Ordered Sig/Bradley Route Start Time Stop Time Status Last Admin Dose Admin Aspirin 81 mg DAILY PO 02/21/25 10:00 03/01/25 08:26 81 MG Ondansetron HCl 4 mg Q4HP PRN IV 02/20/25 09:00 03/01/25 05:47 4 MG Docusate Sodium 100 mg BIDPRN PRN PO 02/20/25 09:00 Enoxaparin Sodium 40 mg DAILY SC 02/20/25 09:00 03/01/25 08:27 40 MG Nitroglycerin 0.4 mg Q5MINP PRN SL 02/20/25 09:00 Allopurinol 100 mg DAILY PO 02/22/25 10:00 03/01/25 08:26 100 MG Acetaminophen/ Hydrocodone Bitart 1 tab Q6HPRN PRN PO 02/21/25 18:30 02/26/25 17:50 1 TAB Potassium Bicarbonate 50 meq DAILY PO 02/24/25 10:00 03/01/25 08:25 50 MEQ Cephalexin 500 mg Q8HR PO 02/24/25 22:00 03/01/25 13:18 500 MG Ipratropium [place] 0.5 mg Q4HPRN PRN NEB 02/27/25 06:00 02/27/25 16:24 0.5 MG Dopamine HCl/ Dextrose 250 ml @ 9.563 mls/ hr Q24H IV 02/27/25 12:00 02/28/25 11:38 9.563 MLS/HR Bumetanide 1 mg DAILY IV 03/01/25 10:00 03/01/25 08:27 1 MG Prednisone 30 mg DAILY PO 03/01/25 10:00 03/01/25 08:26 30 MG Examination: GENERAL:Normal, HEENT:Normal, NECK:Normal, LUNGS:Normal, LUNGS:Abnormal (on oxygen), CVS:Normal, ABDOMEN:Normal, MSK:Normal, SKIN:Normal, NEURO:Normal, :Normal laboratory and microbiology Laboratory Tests 03/01/25 12:53 03/01/25 08:47 Test 03/01/25 08:47 Range/Units Serum Glucose 205 H 74-106 mg/dL Microbiology Date/Time Source Procedure Growth Status 02/20/25 05:47 Blood Blood Culture - Final NO GROWTH AFTER 5 DAYS OF INCUBATION. Complete Problem List/Assessment/Plan Problem List/Assessment/Plan #1 acute resp failure: check abg #2 gout with flare up: steroids, allopurinol #3 morbid obesity #4 alcoholic dilated cardiomyopathy #5 ? acute systolic heart failure: dc bumex #6 acute renal failure ?vasomotor nephropathy: bumex , metolazone #7 liver cirrhosis- alcoholic #8 sepsis with cellulitis: ct abd/pelvis/chest, iv zosyn, cultures #9 hyponatremia advance care planning- full code- time spent 18 mins Plan discussed with: Patient My Orders My Orders Orders - ANA POTTER MD Procedure Category Date Status Time Abg W/ Co-Ox RT 02/28/25 Logged 15:07 Prednisone Tablet PHA 03/01/25 In Process 10:00 Chest Portable XY 03/01/25 Resulted 06:[address] 02/28/25 Resulted 15:43 Dietary Evaluation Review Comments: 1) cardiac + low purine diet 2) Monitoe PO intake, lab values, I/O, wt trend Expected Outcomes/Goals: lab vlaues to improve Fu 3-5 days Critical Care Time (mins): 37 (critical care time 37 mins) Date of Service: Mar 01, 2025 Billing Provider: ANA POTTER MD Common Visit Codes: [id number] CARE 30-74 MIN ANA POTTER MD Mar 01, 2025 14:10
[2025-03-01] MEDS: PIPERACILLIN-TAZOB 3.375GM 100 ML IV ONE (15:46)
[2025-03-01] MEDS: ERGOCALCIFEROL 50,000 UNIT(1.25MG) CAP PO SCH (15:46)
--- NOTE | 2025-03-01 16:20 | DVH ---
Procedure: CT CHST AB PEL WO CON-NO IV/ORAL Study Date and Requested Time : 03/01/2025 02:39 PM History: COPD, SEPSIS Comparison: None Dose: CTDI: 29.17 mGy DLP: 2144.06 mGycm Technique: Multiplanar images obtained through the chest, abdomen and pelvis without contrast Findings: Chest: The thyroid gland is not well-visualized. Moderate cardiomegaly. Motion artifact limits evaluation of the proximal ascending aorta. Ectatic as cending aorta measuring up to 4.2 cm. The pulmonary trunk measures up to 3.6 cm. No significant lymphadenopathy. No pneumothorax, pleural effusion or focal airspace consolidation. Bibasilar, right middle lobe and l ingula atelectasis. The soft tissues unremarkable. Motion artifact limits evaluation for fractures. Old fracture deformit y of left posterolateral 8th to 10th ribs. Chronic fracture deformity of right posterior 7th rib and right posterolateral 10th rib. Compression fractures of T5 and T6 of unknown chronicity, likely acute / subacute with minimal loss of vertebral body height of T6 and about 40% loss of superior anterior vertebral body height of T5. Abdomen and pelvis: Liver, spleen, gallbladder, pancreas and adrenal glands unremarkable. 1.2 cm exophytic left renal cyst. Otherwise, kidneys, ureters and urinary bladder unremarkable. Pros boucher is unremarkable. Mild gastric wall thickening. The visualized small bowel loops are unremarkable with limited evaluati on of the bowel loops of the right lateral hemiabdomen. Limited evaluation of the appendix with a per icecal inflammatory reaction to suggest acute appendicitis. There is limited evaluation of the right lateral hemiabdomen due to artifact. The visualized large bowel is unremarkable. No evidence of intraperitoneal free air or free fluid. No evidence of aortic aneurysm. 1.7 x 1 cm soft tissue density abutting the right posterior urinary bladder. Otherwise no significan t lymphadenopathy. Moderate to large umbilical hernia. Small right with moderate left-sided fat containing inguinal her deena. Mild loss of vertebral body heights of L5 which appears chronic. No acute osseous abnormalities are noted. Impression: Compression fractures of T5 and T6 of unknown chronicity, likely acute / subacute. MRI would be helpf ul for further evaluation. Mild gastric wall thickening which may be due to inadequate distention/gastritis. The right lateral hemiabdomen is outside the field of view. Otherwise, the visualized bowel loops un remarkable. Nonspecific 1.7 x 1 cm soft tissue density abutting the right posterior urinary bladder. Differential s include prominent lymph nodes versus mesenteric lesion Ectatic ascending aorta measuring up to 4.2 cm. Moderate cardiomegaly. No evidence of Acute intrathoracic abnormalities
[2025-03-01] MEDS: PIPERACILLIN-TAZOB 3.375GM 100 ML IV SCH (22:08)
[2025-03-02] VITALS (11 sets, daily range): BP systolic 109–157; BP diastolic 72–98; PULSE 49–101; RESP 16–22; TEMP 97.5–98.4; O2SAT 85–98
[2025-03-02 08:20] LABS: Hematocrit 37.3 % (41.0-53.0); Hemoglobin 12.7 g/dL (13.5-17.5); Mean Corpuscular Hemoglobin 29.3 pg (28.0-32.0); Mean Corpuscular Volume 86.4 fL (80.0-100.0)
[2025-03-02 08:58] LABS: Total Cells Counted 100.0 (100)
[2025-03-02 09:20] LABS: Anion Gap 22.99999 (5-15); Calcium 10.5 mg/dL (8.7-10.4); Carbon Dioxide > 40 mmol/L (20-31); Chloride 63 mmol/L (98-107); Potassium 2.4 mmol/L (3.5-5.1); Sodium 126 mmol/L (136-145)
[2025-03-02 09:22] LABS: BUN/Creatinine Ratio 29.1 (10.0-20.0); Blood Urea Nitrogen 51 mg/dL (9-23); Glucose 151 mg/dL (74-106)
[2025-03-02] MEDS: POTASSIUM CHL 20MEQ/100ML 100 ML IV SCH ×2 (10:15→12:05)
[2025-03-02] MEDS: POTASSIUM EFFERVESENT TAB 25 MEQ PO SCH (12:05)
--- NOTE | 2025-03-02 13:46 | DVHPN2 ---
Progress Note Date Seen: Mar 02, 2025 Medical Necessity Reason Pt with a Central, PICC or Fol: No Subjective Patient reports: No new complaints Other Systems: Patient seen and examined by myself today in follow-up Objective vital signs Vital Sign Date Time Temp Pulse Resp B/P (MAP) Pulse Ox O2 Delivery O2 Flow Rate FiO2 03/02/25 13:00 97.5 100 20 128/72 (90) 95 97.5 03/02/25 10:20 Nasal Cannula* 3 32 Total Intake and Output 03/01/25 03/01/25 03/02/25 14:59 22:59 06:59 Intake Total 300 ml 800 ml 100 ml Output Total 1150 ml Balance 300 ml -350 ml 100 ml medications Current Medications Medications Dose Ordered Sig/Bradley Route Start Time Stop Time Status Last Admin Dose Admin Aspirin 81 mg DAILY PO 02/21/25 10:00 03/02/25 10:14 81 MG Ondansetron HCl 4 mg Q4HP PRN IV 02/20/25 09:00 03/01/25 05:47 4 MG Docusate Sodium 100 mg BIDPRN PRN PO 02/20/25 09:00 Enoxaparin Sodium 40 mg DAILY SC 02/20/25 09:00 03/02/25 10:14 40 MG Nitroglycerin 0.4 mg Q5MINP PRN SL 02/20/25 09:00 Allopurinol 100 mg DAILY PO 02/22/25 10:00 03/02/25 10:13 100 MG Acetaminophen/ Hydrocodone Bitart 1 tab Q6HPRN PRN PO 02/21/25 18:30 02/26/25 17:50 1 TAB Ipratropium [place] 0.5 mg Q4HPRN PRN NEB 02/27/25 06:00 02/27/25 16:24 0.5 MG Prednisone 30 mg DAILY PO 03/01/25 10:00 03/02/25 10:14 30 MG Piperacillin Sod/ Tazobactam Sod 100 ml @ 25 mls/hr Q8HR IV 03/01/25 22:00 03/02/25 06:38 25 MLS/HR Ergocalciferol 50,000 unit Q7D PO 03/01/25 14:15 03/01/25 15:46 50,000 UNIT Potassium Bicarbonate 50 meq Q4HR PO 03/02/25 10:45 03/02/25 22:01 03/02/25 12:05 50 MEQ Potassium Chloride 100 ml @ 50 mls/hr Q2H IV 03/02/25 10:45 03/02/25 14:44 03/02/25 12:05 50 MLS/HR Examination: LUNGS:Normal, CVS:Normal, MSK:Normal laboratory and microbiology Laboratory Tests 03/02/25 06:25 Test 03/02/25 06:25 Range/Units Serum Glucose 151 H 74-106 mg/dL Microbiology Date/Time Source Procedure Growth Status 02/20/25 05:47 Blood Blood Culture - Final NO GROWTH AFTER 5 DAYS OF INCUBATION. Complete Problem List/Assessment/Plan Problem List/Assessment/Plan Acute kidney injury superimposed Chronic Kidney Disease secondary hemodynamic mediated, FeNa < 1% Acute on chronic respiratory failure, patient on O2 supplement Hypercarbia Vancomycin nephrotoxicity Hypokalemic metabolic alkalosis Chronic CO2 retention Hypoventilation syndrome Vanco level greater than 40 Acute on chronic systolic Congestive heart failure exacerbation EF 20 Liver cirrhosis Anasarca Hypokalemia Hypomagnesemia Hypercalcemia Vitamin-D deficiency Recommendations Kidney function is improving Increased urine output Discontinue Bumex DC metolazone due to hyponatremia KCL replacement Magnesium sulfate IV piggyback Low-dose dopamine DC vancomycin Kidney ultrasound reported within normal limit We will continue to follow up Plan discussed with: Patient My Orders My Orders Orders - AIDE JAIME MD Procedure Category Date Status Time Potassium Effervesent PHA 03/02/25 In Process Tab (Klor-Con/Ef) 10:45 Potassium Chl PHA 03/02/25 In Process 20meq/100ml 10:45 Potassium LAB 03/02/25 Logged 17:00 Dietary Evaluation Review Comments: 1) cardiac + low purine diet 2) Monitoe PO intake, lab values, I/O, wt trend Expected Outcomes/Goals: lab vlaues to improve Fu 3-5 days AIDE JAIME MD Mar 02, 2025 13:46
--- NOTE | 2025-03-02 14:53 | DVHPN2 ---
Progress Note Date Seen: Mar 02, 2025 Medical Necessity Reason Pt with a Central, PICC or Fol: No Subjective Patient reports: No new complaints Review of Systems: HEENT:Normal, CVS:Normal, RESPIRATORY:Normal, GI:Normal, :Normal, MSK:Normal, NEURO:Normal Objective vital signs Vital Sign Date Time Temp Pulse Resp B/P (MAP) Pulse Ox O2 Delivery O2 Flow Rate FiO2 03/02/25 13:00 97.5 100 20 128/72 (90) 95 97.5 03/02/25 10:20 Nasal Cannula* 3 32 Total Intake and Output 03/01/25 03/01/25 03/02/25 15:00 23:00 07:00 Intake Total 300 ml 800 ml 100 ml Output Total 1150 ml Balance 300 ml -350 ml 100 ml medications Current Medications Medications Dose Ordered Sig/Bradley Route Start Time Stop Time Status Last Admin Dose Admin Aspirin 81 mg DAILY PO 02/21/25 10:00 03/02/25 10:14 81 MG Ondansetron HCl 4 mg Q4HP PRN IV 02/20/25 09:00 03/01/25 05:47 4 MG Docusate Sodium 100 mg BIDPRN PRN PO 02/20/25 09:00 Enoxaparin Sodium 40 mg DAILY SC 02/20/25 09:00 03/02/25 10:14 40 MG Nitroglycerin 0.4 mg Q5MINP PRN SL 02/20/25 09:00 Allopurinol 100 mg DAILY PO 02/22/25 10:00 03/02/25 10:13 100 MG Acetaminophen/ Hydrocodone Bitart 1 tab Q6HPRN PRN PO 02/21/25 18:30 02/26/25 17:50 1 TAB Ipratropium [place] 0.5 mg Q4HPRN PRN NEB 02/27/25 06:00 02/27/25 16:24 0.5 MG Prednisone 30 mg DAILY PO 03/01/25 10:00 03/02/25 10:14 30 MG Piperacillin Sod/ Tazobactam Sod 100 ml @ 25 mls/hr Q8HR IV 03/01/25 22:00 03/02/25 13:42 25 MLS/HR Ergocalciferol 50,000 unit Q7D PO 03/01/25 14:15 03/01/25 15:46 50,000 UNIT Potassium Bicarbonate 50 meq Q4HR PO 03/02/25 10:45 03/02/25 22:01 03/02/25 13:42 50 MEQ Examination: GENERAL:Normal, HEENT:Normal, NECK:Normal, LUNGS:Normal, LUNGS:Abnormal (RHONCHI+), CVS:Normal, ABDOMEN:Normal, MSK:Normal, SKIN:Normal, NEURO:Normal, :Normal laboratory and microbiology Laboratory Tests 03/02/25 06:25 Test 03/02/25 06:25 Range/Units Serum Glucose 151 H 74-106 mg/dL Microbiology Date/Time Source Procedure Growth Status 02/20/25 05:47 Blood Blood Culture - Final NO GROWTH AFTER 5 DAYS OF INCUBATION. Complete Problem List/Assessment/Plan Problem List/Assessment/Plan #1 acute resp failure: check abg #2 gout with flare up: steroids, allopurinol #3 morbid obesity #4 alcoholic dilated cardiomyopathy #5 ? acute systolic heart failure: dc bumex #6 acute renal failure ?vasomotor nephropathy: dc bumex , metolazone #7 liver cirrhosis- alcoholic #8 sepsis with cellulitis: ct abd/pelvis/chest, iv zosyn, iv zyvox, cultures #9 hyponatremia #10 hypokalemia: replace advance care planning- full code- time spent 18 mins Plan discussed with: Patient My Orders My Orders Orders - ANA POTTER MD Procedure Category Date Status Time Prednisone Tablet PHA 03/03/25 Verified 10:00 NS PHA 03/02/25 Verified 15:00 Dietary Evaluation Review Comments: 1) cardiac + low purine diet 2) Monitoe PO intake, lab values, I/O, wt trend Expected Outcomes/Goals: lab vlaues to improve Fu 3-5 days Date of Service: Mar 02, 2025 Billing Provider: ANA POTTER MD Common Visit Codes: [id number] INP/OBS CARE(HIGH) ANA POTTER MD Mar 02, 2025 14:53
[2025-03-02] MEDS: SODIUM CHLORIDE 0.9% 250 ML IV ONE (16:32)
[2025-03-02] MEDS: LINEZOLID 600MG/300ML 300 ML IV SCH (22:51)
[2025-03-03] VITALS (12 sets, daily range): BP systolic 125–142; BP diastolic 61–103; PULSE 47–102; RESP 17–19; TEMP 97.6–98.6; O2SAT 92–97
[2025-03-03 06:35] LABS: Hematocrit 34.3 % (41.0-53.0); Hemoglobin 11.6 g/dL (13.5-17.5); Mean Corpuscular Hemoglobin 29.3 pg (28.0-32.0); Mean Corpuscular Volume 86.4 fL (80.0-100.0); Nucleated Red Blood Cells % 0.1 %
[2025-03-03 06:46] LABS: Anion Gap 19.99999 (5-15); Calcium 10.6 mg/dL (8.7-10.4); Chloride 67 mmol/L (98-107); Potassium 2.7 mmol/L (3.5-5.1); Sodium 127 mmol/L (136-145)
[2025-03-03 06:48] LABS: BUN/Creatinine Ratio 25.9 (10.0-20.0); Blood Urea Nitrogen 41 mg/dL (9-23); Carbon Dioxide > 40 mmol/L (20-31); Glucose 145 mg/dL (74-106)
[2025-03-03] MEDS: predniSONE 20 MG TAB PO SCH (10:19)
--- NOTE | 2025-03-03 11:28 | DVHPN2 ---
Progress Note Date Seen: Mar 03, 2025 Medical Necessity Reason Pt with a Central, PICC or Fol: No Subjective Patient reports: No new complaints Review of Systems: RESPIRATORY:Abnormal Other Systems: Patient seen and examined by myself today in follow-up Objective vital signs Vital Sign Date Time Temp Pulse Resp B/P (MAP) Pulse Ox O2 Delivery O2 Flow Rate FiO2 03/03/25 10:00 95 Nasal Cannula 3.0 03/03/25 10:00 32 03/03/25 09:28 97.7 97 18 142/93 (109) 97.7 Total Intake and Output 03/02/25 03/02/25 03/03/25 15:00 23:00 07:00 Intake Total 300 ml 650 ml 300 ml Output Total 900 ml Balance 300 ml 650 ml -600 ml medications Current Medications Medications Dose Ordered Sig/Bradley Route Start Time Stop Time Status Last Admin Dose Admin Aspirin 81 mg DAILY PO 02/21/25 10:00 03/03/25 10:24 81 MG Ondansetron HCl 4 mg Q4HP PRN IV 02/20/25 09:00 03/01/25 05:47 4 MG Docusate Sodium 100 mg BIDPRN PRN PO 02/20/25 09:00 Enoxaparin Sodium 40 mg DAILY SC 02/20/25 09:00 03/03/25 10:20 40 MG Nitroglycerin 0.4 mg Q5MINP PRN SL 02/20/25 09:00 Allopurinol 100 mg DAILY PO 02/22/25 10:00 03/03/25 10:19 100 MG Ipratropium [place] 0.5 mg Q4HPRN PRN NEB 02/27/25 06:00 03/03/25 09:26 0.5 MG Piperacillin Sod/ Tazobactam Sod 100 ml @ 25 mls/hr Q8HR IV 03/01/25 22:00 03/03/25 05:51 25 MLS/HR Ergocalciferol 50,000 unit Q7D PO 03/01/25 14:15 03/01/25 15:46 50,000 UNIT Prednisone 20 mg DAILY PO 03/03/25 10:00 03/03/25 10:19 20 MG Linezolid 300 ml @ 150 mls/hr Q12HR IV 03/02/25 22:00 03/03/25 10:20 150 MLS/HR Examination: LUNGS:Normal, CVS:Normal, MSK:Normal laboratory and microbiology Laboratory Tests 03/03/25 05:28 Test 03/03/25 05:28 Range/Units Serum Glucose 145 H 74-106 mg/dL Microbiology Date/Time Source Procedure Growth Status 03/01/25 15:18 Blood Blood Culture - Preliminary NO GROWTH AFTER 24 HOURS OF INCUBATION. Resulted Problem List/Assessment/Plan Problem List/Assessment/Plan Acute kidney injury superimposed Chronic Kidney Disease secondary hemodynamic mediated, FeNa < 1% Acute on chronic respiratory failure, patient on O2 supplement Chronic Hypercarbia due to hypoventilation syndrome Vancomycin nephrotoxicity Hypokalemic metabolic alkalosis Chronic CO2 retention Vanco level greater than 40 Acute on chronic systolic Congestive heart failure exacerbation EF 20 Liver cirrhosis Anasarca Hypokalemia Hypomagnesemia Hypercalcemia Vitamin-D deficiency Recommendations Kidney function is improving Increased urine output Discontinue Bumex DC metolazone due to hyponatremia KCL replacement Magnesium sulfate IV piggyback Low-dose dopamine DC vancomycin Kidney ultrasound reported within normal limit We will continue to follow up Plan discussed with: Patient My Orders My Orders Orders - AIDE JAIME MD Procedure Category Date Status Time Magnesium Geovanni PHA 03/03/25 Transmitted 12:00 Dietary Evaluation Review Comments: 1) cardiac + low purine diet 2) Monitoe PO intake, lab values, I/O, wt trend Expected Outcomes/Goals: lab vlaues to improve Fu 3-5 days AIDE JAIME MD Mar 03, 2025 11:28
--- NOTE | 2025-03-03 11:44 | DVHPN2 ---
Progress Note Date Seen: Mar 03, 2025 Medical Necessity Reason Pt with a Central, PICC or Fol: No Subjective Patient reports: No new complaints Review of Systems: HEENT:Normal, CVS:Normal, RESPIRATORY:Normal, GI:Normal, :Normal, MSK:Normal, NEURO:Normal Objective vital signs Vital Sign Date Time Temp Pulse Resp B/P (MAP) Pulse Ox O2 Delivery O2 Flow Rate FiO2 03/03/25 10:00 95 Nasal Cannula 3.0 03/03/25 10:00 32 03/03/25 09:28 97.7 97 18 142/93 (109) 97.7 Total Intake and Output 03/02/25 03/02/25 03/03/25 15:00 23:00 07:00 Intake Total 300 ml 650 ml 300 ml Output Total 900 ml Balance 300 ml 650 ml -600 ml medications Current Medications Medications Dose Ordered Sig/Bradley Route Start Time Stop Time Status Last Admin Dose Admin Aspirin 81 mg DAILY PO 02/21/25 10:00 03/03/25 10:24 81 MG Ondansetron HCl 4 mg Q4HP PRN IV 02/20/25 09:00 03/01/25 05:47 4 MG Docusate Sodium 100 mg BIDPRN PRN PO 02/20/25 09:00 Enoxaparin Sodium 40 mg DAILY SC 02/20/25 09:00 03/03/25 10:20 40 MG Nitroglycerin 0.4 mg Q5MINP PRN SL 02/20/25 09:00 Allopurinol 100 mg DAILY PO 02/22/25 10:00 03/03/25 10:19 100 MG Ipratropium [place] 0.5 mg Q4HPRN PRN NEB 02/27/25 06:00 03/03/25 09:26 0.5 MG Piperacillin Sod/ Tazobactam Sod 100 ml @ 25 mls/hr Q8HR IV 03/01/25 22:00 03/03/25 05:51 25 MLS/HR Ergocalciferol 50,000 unit Q7D PO 03/01/25 14:15 03/01/25 15:46 50,000 UNIT Prednisone 20 mg DAILY PO 03/03/25 10:00 03/03/25 10:19 20 MG Linezolid 300 ml @ 150 mls/hr Q12HR IV 03/02/25 22:00 03/03/25 10:20 150 MLS/HR Magnesium Sulfate/ Dextrose 100 ml @ 100 mls/hr Q1HR IV 03/03/25 12:00 03/03/25 13:59 UNV Examination: GENERAL:Normal, HEENT:Normal, NECK:Normal, LUNGS:Normal, CVS:Normal, ABDOMEN:Normal, MSK:Normal, SKIN:Normal, NEURO:Normal, :Normal laboratory and microbiology Laboratory Tests 03/03/25 05:28 Test 03/03/25 05:28 Range/Units Serum Glucose 145 H 74-106 mg/dL Microbiology Date/Time Source Procedure Growth Status 03/01/25 15:18 Blood Blood Culture - Preliminary NO GROWTH AFTER 24 HOURS OF INCUBATION. Resulted Problem List/Assessment/Plan Problem List/Assessment/Plan #1 acute resp failure: check abg #2 gout with flare up: steroids, allopurinol #3 morbid obesity #4 alcoholic dilated cardiomyopathy #5 ? acute systolic heart failure: dc bumex #6 acute renal failure ?vasomotor nephropathy: dc bumex , dc metolazone #7 liver cirrhosis- alcoholic #8 sepsis with cellulitis: ct abd/pelvis/chest, levaquin, iv zyvox, cultures #9 hyponatremia #10 hypokalemia: replace advance care planning- full code- time spent 18 mins Plan discussed with: Patient My Orders My Orders Orders - ANA POTTER MD Procedure Category Date Status Time Prednisone Tablet PHA 03/03/25 In Process 10:00 Linezolid 600mg/300ml PHA 03/02/25 In Process (Zyvox) 22:00 Levofloxacin Levaquin PHA 03/04/25 Verified 10:00 Potassium Chl Geovanni PHA 03/03/25 Verified KCL 11:45 NS PHA 03/03/25 Verified 11:45 * Almond Huller CONS 03/03/25 Verified Consult Basic Metabolic Panel LAB 03/04/25 Verified 06:00 Complete Blood Count LAB 03/04/25 Verified 06:00 Magnesium LAB 03/04/25 Verified 05:00 Dietary Evaluation Review Comments: 1) cardiac + low purine diet 2) Monitoe PO intake, lab values, I/O, wt trend Expected Outcomes/Goals: lab vlaues to improve Fu 3-5 days Date of Service: Mar 03, 2025 Billing Provider: ANA POTTER MD Common Visit Codes: [id number] INP/OBS CARE(HIGH) ANA POTTER MD Mar 03, 2025 11:44
[2025-03-03] MEDS: SODIUM CHLORIDE 0.9% 250 ML IV ONE (11:45)
[2025-03-03] MEDS: POTASSIUM CHLORIDE 60 MEQ, LIDOCAINE 1% (LOCAL ANESTH.) 6 ML in SODIUM CHL 0.9% 500 ML IV ONE (11:45)
[2025-03-03] MEDS: MAGNESIUM SULFATE 1GM/100ML 100 ML IV SCH (12:00)
[2025-03-04] VITALS (12 sets, daily range): BP systolic 119–145; BP diastolic 19–104; PULSE 57–106; RESP 17–19; TEMP 98–98.4; O2SAT 18–98
[2025-03-04 06:39] LABS: Hematocrit 33.0 % (41.0-53.0); Hemoglobin 11.2 g/dL (13.5-17.5); Mean Corpuscular Hemoglobin 29.0 pg (28.0-32.0); Mean Corpuscular Volume 85.7 fL (80.0-100.0); Nucleated Red Blood Cells % 0.1 %
[2025-03-04 06:43] LABS: Calcium 10.3 mg/dL (8.7-10.4)
[2025-03-04 06:49] LABS: BUN/Creatinine Ratio 19.8 (10.0-20.0); Blood Urea Nitrogen 21 mg/dL (9-23); Glucose 106 mg/dL (74-106)
[2025-03-04 06:50] LABS: Magnesium 1.9 mg/dL (1.6-2.6)
[2025-03-04 07:40] LABS: Sodium 126 mmol/L (136-145)
[2025-03-04 07:41] LABS: Anion Gap 14.99999 (5-15); Carbon Dioxide > 40 mmol/L (20-31); Chloride 71 mmol/L (98-107); Potassium 2.4 mmol/L (3.5-5.1)
--- NOTE | 2025-03-04 11:30 | DVHPN2 ---
Reviewed: Care Plan, H&P, Labs Changes from previous H/P or p: No Changes Eyes: No Pain, No Vision change, No Conjunctivae inflammation, No Eyelid inflammation, No Other, No Redness ENT: No Ear pain, No Ear discharge, No Nose pain, No Nose discharge, No Nose congestion, No Mouth pain, No Mouth swelling, No Throat pain, No Throat swelling, No Other Cardiovascular: No Chest Pain, No Palpitations, No Orthopnea, No Paroxysmal Noc. Dyspnea; Edema; No Lt Headedness, No Other Respiratory: No Cough, No Dry; Shortness of breath, SOB with excertion; No Wheezing, No Hemoptysis, No Pleuritic Pain, No Sputum, No Other Gastrointestinal: No Nausea, No Vomiting; Abdominal Pain (Round in his firm); No Diarrhea, No Constipation, No Melena, No Hematochezia, No Other Genitourinary: No Dysuria, No Frequency, No Incontinence, No Hematuria, No Retention, No Other Musculoskeletal: No other, No neck pain, No shoulder pain, No arm pain, No back pain, No hand pain; leg pain, foot pain (Patient with discoloration of the right foot also redness and tenderness to the left foot compartments soft neurovascular intact) Skin: No Rash, No Lesions, No Jaundice, No Bruising, No Other Objective Vitals Vital Signs Date Time Temp Pulse Resp B/P (MAP) Pulse Ox O2 Delivery O2 Flow Rate FiO2 03/04/25 09:37 98.0 77 18 131/74 (93) 97 98.0 03/04/25 07:30 Nasal Cannula* 3 32 Intake/Output Intake and Output 03/04/25 06:59 Intake Total 1000 ml Output Total 600 ml Balance 400 ml Intake Oral 400 ml IV Total 600 ml Output Urine Total 600 ml # Bowel Movements 1 General Appearance: Alert, Oriented X3, Cooperative, No acute distress Lungs: Clear to auscultation, Normal air movement, Other Cardiovascular: Regular rate, Normal S1, Normal S2 Abdomen: Normal bowel sounds Musculoskeletal: Normal sensory function, Normal motor function Neuro: Normal gait, Normal speech, Strength at 5/5 X4 ext, Normal tone Psych/Mental Status: Mental status NL, Mood NL Medications Current Medications Medications Dose Ordered Sig/Bradley Route Start Time Stop Time Status Last Admin Dose Admin Aspirin 81 mg DAILY PO 02/21/25 10:00 03/04/25 09:37 81 MG Ondansetron HCl 4 mg Q4HP PRN IV 02/20/25 09:00 03/01/25 05:47 4 MG Docusate Sodium 100 mg BIDPRN PRN PO 02/20/25 09:00 Nitroglycerin 0.4 mg Q5MINP PRN SL 02/20/25 09:00 Allopurinol 100 mg DAILY PO 02/22/25 10:00 03/04/25 09:37 100 MG Ipratropium [place] 0.5 mg Q4HPRN PRN NEB 02/27/25 06:00 03/03/25 09:26 0.5 MG Ergocalciferol 50,000 unit Q7D PO 03/01/25 14:15 03/01/25 15:46 50,000 UNIT Prednisone 20 mg DAILY PO 03/03/25 10:00 03/04/25 09:37 20 MG Linezolid 300 ml @ 150 mls/hr Q12HR IV 03/02/25 22:00 03/04/25 09:52 150 MLS/HR Levofloxacin/ Dextrose 100 ml @ 100 mls/hr DAILY IV 03/04/25 10:00 03/04/25 09:37 100 MLS/HR Laboratory Results Laboratory Tests 03/04/25 05:08 Chemistry Test 03/04/25 05:08 Calcium Level 10.3 mg/dL (8.7-10.4) Magnesium Level 1.9 mg/dL (1.6-2.6) Urinalysis Test 02/22/25 03:15 02/22/25 19:00 Urine Color Dark yellow (Yellow) Urine Clarity Turbid (Clear) H Urine pH 5.0 (5.0-9.0) Urine Specific [place] 1.023 (1.001-1.035) Urine Protein 1+ (Negative) H Urine Ketones Trace (Negative) Urine Blood Trace /uL (Negative) H Urine Nitrite Negative (Negative) Urine Bilirubin Negative (Negative) Urine Urobilinogen Normal mg/dL (Negative) Urine Leukocyte Esterase Negative /uL (Negative) Urine RBC 6 /hpf (0 - 3) Urine Microscopic WBC 7 /HPF (0-3) H Urine Squamous Epithelial Cells Few /hpf (<5) Urine Amorphous Crystals Few /hpf (None Seen) Urine Bacteria None seen /hpf (None Seen) Urine Glucose Normal mg/dL (Normal) Urine Creatinine 130.92 mg/dL (30.0-125.0) H Urine Protein/Creatinine Ratio 0.60 Urine Sodium < 10 mmol/L (40-220) L Urine Total Protein 78.2 mg/dL (1-14) H Microbiology Microbiology Date/Time Source Procedure Growth Status 03/01/25 15:18 Blood Blood Culture - Preliminary NO GROWTH AFTER 48 HOURS OF INCUBATION. Resulted Assessment/Plan Assessment/Plan #1 acute resp failure: check abg #2 gout with flare up: steroids, allopurinol #3 morbid obesity #4 alcoholic dilated cardiomyopathy #5 ? acute systolic heart failure: dc bumex #6 acute renal failure ?vasomotor nephropathy: dc bumex , dc metolazone #7 liver cirrhosis- alcoholic #8 sepsis with cellulitis: ct abd/pelvis/chest, levaquin, iv zyvox, cultures #9 hyponatremia #10 hypokalemia: replace advance care planning- full code- time spent 18 mins Plan discussed with: Patient Date of Service: Apr 03, 2015 Billing Provider: NICOLAS WHITTINGTON DO Common Visit Codes: [id number] INP/OBS CARE(HIGH) NICOLAS WHITTINGTON DO Mar 04, 2025 11:30
[2025-03-04] MEDS: POTASSIUM CHL 20 Meq TABLET PO ONE (12:59)
--- NOTE | 2025-03-04 18:11 | DVHPN2 ---
Progress Note Date Seen: Mar 04, 2025 Medical Necessity Reason Pt with a Central, PICC or Fol: No Subjective Patient reports: No new complaints, Feels better Review of Systems: Deferred Objective vital signs Vital Sign Date Time Temp Pulse Resp B/P (MAP) Pulse Ox O2 Delivery O2 Flow Rate FiO2 03/04/25 17:00 98.0 57 18 132/80 (97) 97 98.0 03/04/25 10:30 Nasal Cannula 3.0 03/04/25 10:30 32 Total Intake and Output 03/03/25 03/03/25 03/04/25 15:00 23:00 07:00 Intake Total 600 ml 400 ml Output Total 600 ml Balance 600 ml -200 ml medications Current Medications Medications Dose Ordered Sig/Bradley Route Start Time Stop Time Status Last Admin Dose Admin Aspirin 81 mg DAILY PO 02/21/25 10:00 03/04/25 09:37 81 MG Ondansetron HCl 4 mg Q4HP PRN IV 02/20/25 09:00 03/01/25 05:47 4 MG Docusate Sodium 100 mg BIDPRN PRN PO 02/20/25 09:00 Nitroglycerin 0.4 mg Q5MINP PRN SL 02/20/25 09:00 Allopurinol 100 mg DAILY PO 02/22/25 10:00 03/04/25 09:37 100 MG Ipratropium [place] 0.5 mg Q4HPRN PRN NEB 02/27/25 06:00 03/03/25 09:26 0.5 MG Ergocalciferol 50,000 unit Q7D PO 03/01/25 14:15 03/01/25 15:46 50,000 UNIT Prednisone 20 mg DAILY PO 03/03/25 10:00 03/04/25 09:37 20 MG Linezolid 300 ml @ 150 mls/hr Q12HR IV 03/02/25 22:00 03/04/25 09:52 150 MLS/HR Levofloxacin/ Dextrose 100 ml @ 100 mls/hr DAILY IV 03/04/25 10:00 03/04/25 09:37 100 MLS/HR Examination: GENERAL:Normal, HEENT:Normal, NECK:Normal, LUNGS:Abnormal, CVS:Normal, ABDOMEN:Normal, MSK:Normal, SKIN:Normal, NEURO:Normal, :Normal laboratory and microbiology Laboratory Tests 03/04/25 05:08 Test 03/04/25 05:08 Range/Units Serum Glucose 106 74-106 mg/dL Microbiology Date/Time Source Procedure Growth Status 03/01/25 15:18 Blood Blood Culture - Preliminary NO GROWTH AFTER 72 HOURS OF INCUBATION. Resulted Problem List/Assessment/Plan Problem List/Assessment/Plan Acute kidney injury superimposed Chronic Kidney Disease secondary hemodynamic mediated, FeNa < 1% Acute on chronic respiratory failure, patient on O2 Chronic Hypercarbia due to hypoventilation syndrome Vancomycin nephrotoxicity Hypokalemic metabolic alkalosis Chronic CO2 retention Vanco level greater than 40 Acute on chronic systolic Congestive heart failure exacerbation EF 20 Liver cirrhosis Anasarca Hypokalemia Hypomagnesemia Hypercalcemia Vitamin-D deficiency recs diuretics on hold for now better renal function bumex 1mg po bid on dc Plan discussed with: Patient Dietary Evaluation Review Comments: 1) cardiac + low purine diet 2) Monitoe PO intake, lab values, I/O, wt trend Expected Outcomes/Goals: lab vlaues to improve Fu 3-5 days MAYRA STEINER MD Mar 04, 2025 18:11
[2025-03-05] VITALS (14 sets, daily range): BP systolic 112–137; BP diastolic 70–93; PULSE 57–102; RESP 16–94; TEMP 97.6–98.5; O2SAT 92–97
[2025-03-05 07:15] LABS: Calcium 10.0 mg/dL (8.7-10.4)
[2025-03-05 07:20] LABS: BUN/Creatinine Ratio 16.7 (10.0-20.0); Blood Urea Nitrogen 18 mg/dL (9-23)
[2025-03-05 07:24] LABS: Sodium 130 mmol/L (136-145)
[2025-03-05 07:26] LABS: Potassium 2.3 mmol/L (3.5-5.1)
[2025-03-05 07:27] LABS: Anion Gap 14.99999 (5-15); Carbon Dioxide > 40 mmol/L (20-31); Chloride 75 mmol/L (98-107); Glucose 124 mg/dL (74-106)
[2025-03-05] MEDS: POTASSIUM CHL 20 Meq TABLET PO ONE ×2 (10:03→12:44)
--- NOTE | 2025-03-05 10:07 | DVHPN2 ---
Reviewed: Care Plan, H&P, Labs, Medications, Previous Orders, Radiology Changes from previous H/P or p: No Changes General: Per HPI Eyes: No Pain, No Vision change, No Conjunctivae inflammation, No Eyelid inflammation, No Other, No Redness ENT: No Ear pain, No Ear discharge, No Nose pain, No Nose discharge, No Nose congestion, No Mouth pain, No Mouth swelling, No Throat pain, No Throat swelling, No Other Cardiovascular: No Chest Pain, No Palpitations, No Orthopnea, No Paroxysmal Noc. Dyspnea; Edema; No Lt Headedness, No Other Respiratory: No Cough, No Dry; Shortness of breath, SOB with excertion; No Wheezing, No Hemoptysis, No Pleuritic Pain, No Sputum, No Other Gastrointestinal: No Nausea, No Vomiting; Abdominal Pain (Round in his firm); No Diarrhea, No Constipation, No Melena, No Hematochezia, No Other Genitourinary: No Dysuria, No Frequency, No Incontinence, No Hematuria, No Retention, No Other Musculoskeletal: No other, No neck pain, No shoulder pain, No arm pain, No back pain, No hand pain; leg pain, foot pain (Patient with discoloration of the right foot also redness and tenderness to the left foot compartments soft neurovascular intact) Skin: No Rash, No Lesions, No Jaundice, No Bruising, No Other Objective Vitals Vital Signs Date Time Temp Pulse Resp B/P (MAP) Pulse Ox O2 Delivery O2 Flow Rate FiO2 03/05/25 09:32 98.5 90 18 115/88 (97) 95 98.5 03/05/25 07:30 Nasal Cannula* 3 32 Intake/Output Intake and Output 03/05/25 07:00 Intake Total 300 ml Balance 300 ml IV Total 300 ml General Appearance: Alert, Oriented X3, Cooperative, No acute distress Lungs: Clear to auscultation, Normal air movement, Other Cardiovascular: Regular rate, Normal S1, Normal S2 Abdomen: Normal bowel sounds Musculoskeletal: Normal sensory function, Normal motor function Neuro: Normal gait, Normal speech, Strength at 5/5 X4 ext, Normal tone Psych/Mental Status: Mental status NL, Mood NL Medications Current Medications Medications Dose Ordered Sig/Bradley Route Start Time Stop Time Status Last Admin Dose Admin Aspirin 81 mg DAILY PO 02/21/25 10:00 03/05/25 09:37 81 MG Ondansetron HCl 4 mg Q4HP PRN IV 02/20/25 09:00 03/01/25 05:47 4 MG Docusate Sodium 100 mg BIDPRN PRN PO 02/20/25 09:00 Nitroglycerin 0.4 mg Q5MINP PRN SL 02/20/25 09:00 Allopurinol 100 mg DAILY PO 02/22/25 10:00 03/05/25 09:37 100 MG Ipratropium [place] 0.5 mg Q4HPRN PRN NEB 02/27/25 06:00 03/03/25 09:26 0.5 MG Ergocalciferol 50,000 unit Q7D PO 03/01/25 14:15 03/01/25 15:46 50,000 UNIT Prednisone 20 mg DAILY PO 03/03/25 10:00 03/05/25 09:37 20 MG Linezolid 300 ml @ 150 mls/hr Q12HR IV 03/02/25 22:00 03/05/25 09:36 150 MLS/HR Levofloxacin/ Dextrose 100 ml @ 100 mls/hr DAILY IV 03/04/25 10:00 03/05/25 09:36 100 MLS/HR Laboratory Results Laboratory Tests 03/04/25 05:08 03/05/25 06:41 Chemistry Test 03/05/25 06:41 Calcium Level 10.0 mg/dL (8.7-10.4) Urinalysis Test 02/22/25 03:15 02/22/25 19:00 Urine Color Dark yellow (Yellow) Urine Clarity Turbid (Clear) H Urine pH 5.0 (5.0-9.0) Urine Specific [place] 1.023 (1.001-1.035) Urine Protein 1+ (Negative) H Urine Ketones Trace (Negative) Urine Blood Trace /uL (Negative) H Urine Nitrite Negative (Negative) Urine Bilirubin Negative (Negative) Urine Urobilinogen Normal mg/dL (Negative) Urine Leukocyte Esterase Negative /uL (Negative) Urine RBC 6 /hpf (0 - 3) Urine Microscopic WBC 7 /HPF (0-3) H Urine Squamous Epithelial Cells Few /hpf (<5) Urine Amorphous Crystals Few /hpf (None Seen) Urine Bacteria None seen /hpf (None Seen) Urine Glucose Normal mg/dL (Normal) Urine Creatinine 130.92 mg/dL (30.0-125.0) H Urine Protein/Creatinine Ratio 0.60 Urine Sodium < 10 mmol/L (40-220) L Urine Total Protein 78.2 mg/dL (1-14) H Microbiology Microbiology Date/Time Source Procedure Growth Status 03/01/25 15:18 Blood Blood Culture - Preliminary NO GROWTH AFTER 72 HOURS OF INCUBATION. Resulted Labs and/or images reviewed: Labs reviewed by me, Image(s) reviewed by me Assessment/Plan Assessment/Plan #1 acute resp failure: check abg #2 gout with flare up: steroids, allopurinol #3 morbid obesity #4 alcoholic dilated cardiomyopathy #5 ? acute systolic heart failure: dc bumex #6 acute renal failure ?vasomotor nephropathy: dc bumex , dc metolazone #7 liver cirrhosis- alcoholic #8 sepsis with cellulitis: ct abd/pelvis/chest, levaquin, iv zyvox, cultures #9 hyponatremia #10 hypokalemia: replace advance care planning- full code- time spent 18 mins Plan discussed with: Patient My Orders Orders - NICOLAS WHITTINGTON DO Procedure Category Date Status Time Complete Blood Count LAB 03/05/25 Transmitted 10:06 Potassium Er Tablet PHA 03/05/25 Verified (Klor-Con Tablet) 10:15 Date of Service: Mar 05, 2025 Billing Provider: NICOLAS WHITTINGTON DO Common Visit Codes: [id number] INP/OBS CARE(HIGH) NICOLAS WHITTINGTON DO Mar 05, 2025 10:07
[2025-03-05 10:17] LABS: Hematocrit 32.1 % (41.0-53.0); Hemoglobin 11.0 g/dL (13.5-17.5); Mean Corpuscular Hemoglobin 29.3 pg (28.0-32.0); Mean Corpuscular Volume 85.5 fL (80.0-100.0); Nucleated Red Blood Cells % 0.0 %
[2025-03-05 12:35] LABS: Potassium 2.6 mmol/L (3.5-5.1)
[2025-03-05 12:40] LABS: Magnesium 1.4 mg/dL (1.6-2.6)
--- NOTE | 2025-03-05 19:10 | DVHPN2 ---
Progress Note Date Seen: Mar 05, 2025 Medical Necessity Reason Pt with a Central, PICC or Fol: No Subjective Patient reports: No new complaints, Feels better Review of Systems: Deferred Objective vital signs Vital Sign Date Time Temp Pulse Resp B/P (MAP) Pulse Ox O2 Delivery O2 Flow Rate FiO2 03/05/25 18:11 94 Nasal Cannula 3.0 03/05/25 18:11 32 03/05/25 16:46 97.6 59 94 112/70 (84) 97.6 Total Intake and Output 03/04/25 03/04/25 03/05/25 15:00 23:00 07:00 Intake Total 300 ml Balance 300 ml medications Current Medications Medications Dose Ordered Sig/Bradley Route Start Time Stop Time Status Last Admin Dose Admin Aspirin 81 mg DAILY PO 02/21/25 10:00 03/05/25 09:37 81 MG Ondansetron HCl 4 mg Q4HP PRN IV 02/20/25 09:00 03/01/25 05:47 4 MG Docusate Sodium 100 mg BIDPRN PRN PO 02/20/25 09:00 Nitroglycerin 0.4 mg Q5MINP PRN SL 02/20/25 09:00 Allopurinol 100 mg DAILY PO 02/22/25 10:00 03/05/25 09:37 100 MG Ipratropium [place] 0.5 mg Q4HPRN PRN NEB 02/27/25 06:00 03/03/25 09:26 0.5 MG Ergocalciferol 50,000 unit Q7D PO 03/01/25 14:15 03/01/25 15:46 50,000 UNIT Prednisone 20 mg DAILY PO 03/03/25 10:00 03/05/25 09:37 20 MG Linezolid 300 ml @ 150 mls/hr Q12HR IV 03/02/25 22:00 03/05/25 09:36 150 MLS/HR Levofloxacin/ Dextrose 100 ml @ 100 mls/hr DAILY IV 03/04/25 10:00 03/05/25 09:36 100 MLS/HR laboratory and microbiology Laboratory Tests 03/05/25 12:03 03/05/25 06:41 Test 03/05/25 06:41 Range/Units Serum Glucose 124 H 74-106 mg/dL Microbiology Date/Time Source Procedure Growth Status 03/01/25 15:18 Blood Blood Culture - Preliminary NO GROWTH AFTER 72 HOURS OF INCUBATION. Resulted Problem List/Assessment/Plan Problem List/Assessment/Plan Acute kidney injury superimposed Chronic Kidney Disease secondary hemodynamic mediated, FeNa < 1% Acute on chronic respiratory failure, patient on O2 Chronic Hypercarbia due to hypoventilation syndrome Vancomycin nephrotoxicity Hypokalemic metabolic alkalosis Chronic CO2 retention Vanco level greater than 40 Acute on chronic systolic Congestive heart failure exacerbation EF 20 Liver cirrhosis Anasarca Hypokalemia Hypomagnesemia Hypercalcemia Vitamin-D deficiency recs diuretics on hold for now better renal function bumex 1mg po bid on dc Plan discussed with: Patient Dietary Evaluation Review Comments: 1) cardiac + low purine diet 2) Monitoe PO intake, lab values, I/O, wt trend Expected Outcomes/Goals: lab vlaues to improve Fu 3-5 days MAYRA STEINER MD Mar 05, 2025 19:10
[2025-03-05] MEDS: MAGNESIUM OXIDE 400 MG TAB PO SCH (22:13)
[2025-03-06] VITALS (15 sets, daily range): BP systolic 121–151; BP diastolic 63–104; PULSE 57–108; RESP 16–19; TEMP 97.1–98.6; O2SAT 93–100
[2025-03-06] MEDS: NEUTRA-PHOS TABLET PO SCH (08:42)
[2025-03-06 09:20] LABS: Hematocrit 32.3 % (41.0-53.0); Hemoglobin 11.0 g/dL (13.5-17.5); Mean Corpuscular Hemoglobin 29.4 pg (28.0-32.0); Mean Corpuscular Volume 86.2 fL (80.0-100.0); Nucleated Red Blood Cells % 0.0 %
[2025-03-06 09:37] LABS: Alanine Aminotransferase 33 U/L (7-40); Albumin 3.8 g/dL (3.2-4.8); Alkaline Phosphatase 101 U/L (46-116); BUN/Creatinine Ratio 14.4 (10.0-20.0); Blood Urea Nitrogen 17 mg/dL (9-23); Calcium 9.9 mg/dL (8.7-10.4); Total Protein 6.1 g/dL (5.7-8.2)
[2025-03-06 09:38] LABS: Bilirubin, Total 0.6 mg/dL (0.2-1.0)
[2025-03-06 09:40] LABS: Sodium 131 mmol/L (136-145)
[2025-03-06 09:41] LABS: Anion Gap 10.99999 (5-15); Carbon Dioxide > 40 mmol/L (20-31); Chloride 80 mmol/L (98-107); Glucose 207 mg/dL (74-106); Potassium 2.5 mmol/L (3.5-5.1)
--- NOTE | 2025-03-06 11:05 | DVHPN2 ---
Progress Note Date Seen: Mar 06, 2025 Medical Necessity Reason Pt with a Central, PICC or Fol: No Subjective Patient reports: No new complaints Review of Systems: Deferred Objective vital signs Vital Sign Date Time Temp Pulse Resp B/P (MAP) Pulse Ox O2 Delivery O2 Flow Rate FiO2 03/06/25 10:00 93 Nasal Cannula* 3 32 03/06/25 08:30 97.1 106 17 134/87 (103) 97.1 Total Intake and Output 03/05/25 03/05/25 03/06/25 15:00 23:00 07:00 Intake Total 400 ml 300 ml Balance 400 ml 300 ml medications Current Medications Medications Dose Ordered Sig/Bradley Route Start Time Stop Time Status Last Admin Dose Admin Aspirin 81 mg DAILY PO 02/21/25 10:00 03/06/25 08:43 81 MG Ondansetron HCl 4 mg Q4HP PRN IV 02/20/25 09:00 03/01/25 05:47 4 MG Docusate Sodium 100 mg BIDPRN PRN PO 02/20/25 09:00 Nitroglycerin 0.4 mg Q5MINP PRN SL 02/20/25 09:00 Allopurinol 100 mg DAILY PO 02/22/25 10:00 03/06/25 08:43 100 MG Ipratropium [place] 0.5 mg Q4HPRN PRN NEB 02/27/25 06:00 03/03/25 09:26 0.5 MG Ergocalciferol 50,000 unit Q7D PO 03/01/25 14:15 03/01/25 15:46 50,000 UNIT Prednisone 20 mg DAILY PO 03/03/25 10:00 03/06/25 08:43 20 MG Linezolid 300 ml @ 150 mls/hr Q12HR IV 03/02/25 22:00 03/06/25 08:43 150 MLS/HR Levofloxacin/ Dextrose 100 ml @ 100 mls/hr DAILY IV 03/04/25 10:00 03/06/25 08:43 100 MLS/HR Magnesium Oxide 800 mg BID PO 03/05/25 22:00 03/10/25 21:59 03/06/25 08:42 800 MG Sodium Phosphate 1 tab TIDWM PO 03/06/25 08:00 03/06/25 08:42 1 TAB laboratory and microbiology Laboratory Tests 03/06/25 09:10 Test 03/06/25 09:10 Range/Units Serum Glucose 207 H 74-106 mg/dL Microbiology Date/Time Source Procedure Growth Status 03/01/25 15:18 Blood Blood Culture - Preliminary NO GROWTH AFTER 72 HOURS OF INCUBATION. Resulted Problem List/Assessment/Plan Problem List/Assessment/Plan Acute kidney injury superimposed Chronic Kidney Disease secondary hemodynamic mediated, FeNa < 1% Acute on chronic respiratory failure, patient on O2 Chronic Hypercarbia due to hypoventilation syndrome Vancomycin nephrotoxicity Hypokalemic metabolic alkalosis Chronic CO2 retention Vanco level greater than 40 Acute on chronic systolic Congestive heart failure exacerbation EF 20 Liver cirrhosis Anasarca Hypokalemia Hypomagnesemia Hypercalcemia Vitamin-D deficiency recs diuretics on hold for now better renal function bumex 1mg po bid on dc mag,phos,k replace Plan discussed with: Patient My Orders My Orders Orders - MAYRA STEINER MD Procedure Category Date Status Time Magnesium Oxide PHA 03/05/25 In Process Tablet (Mag-Ox Tablet) 22:00 Pota Phos & Sod Phos PHA 03/06/25 In Process Tablet (Neutra-Phos 08:00 Dietary Evaluation Review Comments: 1) cardiac + low purine diet 2) Monitoe PO intake, lab values, I/O, wt trend Expected Outcomes/Goals: lab vlaues to improve Fu 3-5 days MAYRA STEINER MD Mar 06, 2025 11:05
[2025-03-06] MEDS: POTASSIUM CHLORIDE 80 MEQ, LIDOCAINE 1% (LOCAL ANESTH.) 6 ML in SODIUM CHL 0.9% 500 ML IV ONE (11:48)
--- NOTE | 2025-03-06 12:43 | DVHPN2 ---
Reviewed: Care Plan, H&P, Labs, Medications, Previous Orders, Radiology Changes from previous H/P or p: No Changes General: Per HPI Eyes: No Pain, No Vision change, No Conjunctivae inflammation, No Eyelid inflammation, No Other, No Redness ENT: No Ear pain, No Ear discharge, No Nose pain, No Nose discharge, No Nose congestion, No Mouth pain, No Mouth swelling, No Throat pain, No Throat swelling, No Other Cardiovascular: No Chest Pain, No Palpitations, No Orthopnea, No Paroxysmal Noc. Dyspnea; Edema; No Lt Headedness, No Other Respiratory: No Cough, No Dry; Shortness of breath, SOB with excertion; No Wheezing, No Hemoptysis, No Pleuritic Pain, No Sputum, No Other Gastrointestinal: No Nausea, No Vomiting; Abdominal Pain (Round in his firm); No Diarrhea, No Constipation, No Melena, No Hematochezia, No Other Genitourinary: No Dysuria, No Frequency, No Incontinence, No Hematuria, No Retention, No Other Musculoskeletal: No other, No neck pain, No shoulder pain, No arm pain, No back pain, No hand pain; leg pain, foot pain (Patient with discoloration of the right foot also redness and tenderness to the left foot compartments soft neurovascular intact) Skin: No Rash, No Lesions, No Jaundice, No Bruising, No Other Objective Vitals Vital Signs Date Time Temp Pulse Resp B/P (MAP) Pulse Ox O2 Delivery O2 Flow Rate FiO2 03/06/25 10:00 93 Nasal Cannula* 3 32 03/06/25 08:30 97.1 106 17 134/87 (103) 97.1 Intake/Output Intake and Output 03/06/25 07:00 Intake Total 700 ml Balance 700 ml IV Total 700 ml General Appearance: Alert, Oriented X3, Cooperative, No acute distress Lungs: Clear to auscultation, Normal air movement, Other Cardiovascular: Regular rate, Normal S1, Normal S2 Abdomen: Normal bowel sounds Musculoskeletal: Normal sensory function, Normal motor function Neuro: Normal gait, Normal speech, Strength at 5/5 X4 ext, Normal tone Psych/Mental Status: Mental status NL, Mood NL Medications Current Medications Medications Dose Ordered Sig/Bradley Route Start Time Stop Time Status Last Admin Dose Admin Aspirin 81 mg DAILY PO 02/21/25 10:00 03/06/25 08:43 81 MG Ondansetron HCl 4 mg Q4HP PRN IV 02/20/25 09:00 03/01/25 05:47 4 MG Docusate Sodium 100 mg BIDPRN PRN PO 02/20/25 09:00 Nitroglycerin 0.4 mg Q5MINP PRN SL 02/20/25 09:00 Allopurinol 100 mg DAILY PO 02/22/25 10:00 03/06/25 08:43 100 MG Ipratropium [place] 0.5 mg Q4HPRN PRN NEB 02/27/25 06:00 03/03/25 09:26 0.5 MG Ergocalciferol 50,000 unit Q7D PO 03/01/25 14:15 03/01/25 15:46 50,000 UNIT Prednisone 20 mg DAILY PO 03/03/25 10:00 03/06/25 08:43 20 MG Linezolid 300 ml @ 150 mls/hr Q12HR IV 03/02/25 22:00 03/06/25 08:43 150 MLS/HR Levofloxacin/ Dextrose 100 ml @ 100 mls/hr DAILY IV 03/04/25 10:00 03/06/25 08:43 100 MLS/HR Magnesium Oxide 800 mg BID PO 03/05/25 22:00 03/10/25 21:59 03/06/25 08:42 800 MG Sodium Phosphate 1 tab TIDWM PO 03/06/25 08:00 03/06/25 11:46 1 TAB Laboratory Results Laboratory Tests 03/06/25 09:10 Chemistry Test 03/06/25 09:10 Albumin 3.8 g/dL (3.2-4.8) Calcium Level 9.9 mg/dL (8.7-10.4) Total Protein 6.1 g/dL (5.7-8.2) LFT Test 03/06/25 09:10 Alanine Aminotransferase (ALT) 33 U/L (7-40) Alkaline Phosphatase 101 U/L (46-116) Aspartate Amino Transferase (AST) 28 U/L (<34) Total Bilirubin 0.6 mg/dL (0.2-1.0) Urinalysis Test 02/22/25 03:15 02/22/25 19:00 Urine Color Dark yellow (Yellow) Urine Clarity Turbid (Clear) H Urine pH 5.0 (5.0-9.0) Urine Specific [place] 1.023 (1.001-1.035) Urine Protein 1+ (Negative) H Urine Ketones Trace (Negative) Urine Blood Trace /uL (Negative) H Urine Nitrite Negative (Negative) Urine Bilirubin Negative (Negative) Urine Urobilinogen Normal mg/dL (Negative) Urine Leukocyte Esterase Negative /uL (Negative) Urine RBC 6 /hpf (0 - 3) Urine Microscopic WBC 7 /HPF (0-3) H Urine Squamous Epithelial Cells Few /hpf (<5) Urine Amorphous Crystals Few /hpf (None Seen) Urine Bacteria None seen /hpf (None Seen) Urine Glucose Normal mg/dL (Normal) Urine Creatinine 130.92 mg/dL (30.0-125.0) H Urine Protein/Creatinine Ratio 0.60 Urine Sodium < 10 mmol/L (40-220) L Urine Total Protein 78.2 mg/dL (1-14) H Microbiology Microbiology Date/Time Source Procedure Growth Status 03/01/25 15:18 Blood Blood Culture - Preliminary NO GROWTH AFTER 72 HOURS OF INCUBATION. Resulted Labs and/or images reviewed: Labs reviewed by me, Image(s) reviewed by me Assessment/Plan Assessment/Plan #1 acute resp failure: check abg #2 gout with flare up: steroids, allopurinol #3 morbid obesity #4 alcoholic dilated cardiomyopathy #5 ? acute systolic heart failure: dc bumex #6 acute renal failure ?vasomotor nephropathy: dc bumex , dc metolazone #7 liver cirrhosis- alcoholic #8 sepsis with cellulitis: ct abd/pelvis/chest, levaquin, iv zyvox, cultures #9 hyponatremia #10 hypokalemia: replace advance care planning- full code- time spent 18 mins Plan discussed with: Patient My Orders Orders - NICOLAS WHITTINGTON DO Procedure Category Date Status Time Complete Blood Count LAB 03/07/25 Verified 04:00 Complete Blood Count LAB 03/09/25 Verified 04:00 Complete Blood Count LAB 03/08/25 Verified 04:00 Comprehensive LAB 03/07/25 Verified Metabolic Panel 04:00 Comprehensive LAB 03/08/25 Verified Metabolic Panel 04:00 Comprehensive LAB 03/09/25 Verified Metabolic Panel 04:00 *Consult CONS 03/06/25 Transmitted / 08:50 Potassium Chloride PHA 03/06/25 In Process (Potassium Chloride). 10:15 Date of Service: Mar 06, 2025 Billing Provider: NICOLAS WHITTINGTON DO Common Visit Codes: [id number] INP/OBS CARE(HIGH) NICOLAS WHITTINGTON DO Mar 06, 2025 12:43
[2025-03-06] MEDS: POTASSIUM CHL 20 Meq TABLET PO SCH (12:45)
[2025-03-06] MEDS: acetaZOLAMIDE SODIUM 500 MG VL IV ONE (17:34)
--- NOTE | 2025-03-06 23:47 | DVHINCON2 ---
Date of service: Mar 06, [address] Mora Reason for Consultation acute hypoxic/chronic hypercarbic respiratory failure, OHS and sepsis. History of Present Illness A 49-year-old man with past medical history of cardiomyopathy, CHF, hypertension, liver cirrhosis, gout and hx of ETOH use who presented to ED on 02/20/25 with complaint of shortness of breath ongoing x2 weeks. Patient reported chronic lower extremity swelling x6 years, worsening over the past 2 weeks. Patient does take Lasix daily and takes Entresto for heart failure but does not f/u with correctional case records supervisor regularly. He also complained of severe pain to his left foot with swelling and redness - feels has a gout flare with pain all over his joints. Patient currently does not use oxygen at home. ED workup revealed white count of 22.2, glucose was 135, hemoglobin and hematocrit was 11.8/36.9. Sodium was 133, chloride was 91, lactate was 2.3. Cardiomegaly noted on chest x-ray, otherwise unremarkable. Troponin was negative. AST was 78 ALT was 65. INR is 1.32. BNP was 172.42. Patient was admitted for further care. Pulmonary consultation is requested for evaluation and management of acute hypoxic/chronic hypercarbic respiratory failure, OHS and sepsis. Review of Systems: 14-point review of systems negative unless otherwise noted above. Past Medical History: Hypertension, CHF, nonischemic cardiomyopathy, liver cirrhosis, ETOH use and gout Past Surgical History: Coronary angiogram - negative for obstructive CAD Medications: Reviewed. Allergies: No known drug allergies. Family History: No family history of premature CAD. No family history of lung disorders. Social History: Nonsmoker. Hx of heavy alcohol use - quit 2 months ago. No illicit drug use. Family History: Patient reports no known family medical history. Allergies: Coded Allergies: NO KNOWN ALLERGIES (Unverified , 07/10/17) Home Meds Reported Medications Spironolactone (Spironolactone) 25 Mg Tab, 1 TAB PO DAILY for 30 Days, #30 02/22/25 Atorvastatin Calcium (Lipitor) 20 Mg Tab, 1 TAB PO DAILY, #90 TAB 1 Refill 02/20/25 Famotidine (Gnp Acid Community Case Manager Maximum) 20 Mg Tab, 1 TAB PO BID, #60 TAB 3 Refills 02/20/25 Sacubitril-Valsartan (Entresto 49-51 mg) 1 Tab Tab, 1 TAB PO BID for 30 Days, #60 02/20/25 Allopurinol (Allopurinol) 300 Mg Tab, 300 MG PO DAILY, TAB 02/20/25 Metoprolol Tartrate (Metoprolol Tartrate) 25 Mg Tab, 1 TAB PO BID, #180 TAB 1 Refill 02/20/25 Aspirin (Aspir-81) 81 Mg Tab, 1 TAB PO DAILY, #30 TAB 5 Refills 02/20/25 Furosemide (Furosemide) 40 Mg Tab, 1 TAB PO DAILY, #30 TAB 5 Refills 02/20/25 Current Medications Current Medications Medications (Trade) Dose Ordered Sig/Bradley Route PRN Reason Start Time Stop Time Status Last Admin Sodium Phosphate (Neutra-Phos Tablet) 1 tab TIDWM PO 03/06/25 08:00 03/06/25 17:36 Potassium Chloride (Klor-Con Tablet) 40 meq Q2H PO 03/06/25 12:45 03/06/25 14:46 DC Vital Signs Vital Signs Date Time Temp Pulse Resp B/P (MAP) Pulse Ox O2 Delivery O2 Flow Rate FiO2 03/06/25 22:08 90 98 Facial BiPAP Mask 30 03/06/25 21:00 98.5 19 121/79 (93) 98.5 03/06/25 20:00 2 Physical Exam Gen.: Patient lying in bed in no apparent distress. On supplemental oxygen. Head: Normocephalic, atraumatic. Eyes: EOMI/PERRLA. Ears: Normal hearing. Normal anatomy. Neck/trachea: Trachea midline, supple. Nose: Normal external anatomy. Mouth: Moist mucous membranes. Chest: Decreased air entry bilaterally. No wheezing or rhonchi. Cardiovascular: Positive S1, positive S2. Regular rate and rhythm. Abdomen: Positive bowel sounds in all 4 quadrants. Soft, non-tender, non- distended. : Deferred. Rectal: Deferred. Skin: Warm, dry. Intact. Extremities: 2+ radial pulses bilaterally. No lower extremity edema. Neuro: Awake, alert, oriented x3. No gross motor or sensory deficits. Cranial nerves II through XII intact. Gait not assessed. Labs/Diagnostic Data Labs Test 03/06/25 09:10 03/05/25 12:03 03/02/25 06:25 02/28/25 15:26 Range/Units White Blood Count 19.6 H 4.4-10.8 10^3/uL Red Blood Count 3.75 L 4.5-5.90 10^6/uL Hemoglobin 11.0 L 13.5-17.5 g/dL Hematocrit 32.3 L 41.0-53.0 % Mean Corpuscular Volume 86.2 80.0-100.0 fL Mean Corpuscular Hemoglobin 29.4 28.0-32.0 pg Mean Corpuscular Hemoglobin Concent 34.1 32.0-36.0 g/dL Red Cell Distribution Width 13.9 11.8-14.3 % Platelet Count 294 140-450 10^3/uL Mean Platelet Volume 7.6 6.9-10.8 fL Neutrophils (%) (Auto) 85.5 H 37.0-80.0 % Lymphocytes (%) (Auto) 9.0 L 10.0-50.0 % Monocytes (%) (Auto) 4.9 0.0-12.0 % Eosinophils (%) (Auto) 0.3 0.0-7.0 % Basophils (%) (Auto) 0.3 0.0-2.0 % Neutrophils # (Auto) 16.7 H 1.6-8.6 10 ^3/uL Lymphocytes # (Auto) 1.8 0.4-5.4 10 ^3/uL Monocytes # (Auto) 1.0 0-1.3 10 ^3/uL Eosinophils # (Auto) 0.1 0-0.8 10 ^3/uL Basophils # (Auto) 0.1 0-0.2 10 ^3/uL Nucleated Red Blood Cells 0.0 % Sodium Level 131 L 136-145 mmol/L Potassium Level 2.5 *L 3.5-5.1 mmol/L Chloride Level 80 L 98-107 mmol/L Carbon Dioxide Level > 40 *H 20-31 mmol/L Anion Gap 10.46771 5-15 Blood Urea Nitrogen 17 9-23 mg/dL Creatinine 1.18 0.700-1.30 mg/dL Glomerular Filtration Rate Calc 76 >90 mL/min BUN/Creatinine Ratio 14.4 10.0-20.0 Serum Glucose 207 H 74-106 mg/dL Calcium Level 9.9 8.7-10.4 mg/dL Total Bilirubin 0.6 0.2-1.0 mg/dL Aspartate Amino Transferase (AST) 28 <34 U/L Alanine Aminotransferase (ALT) 33 7-40 U/L Alkaline Phosphatase 101 46-116 U/L Total Protein 6.1 5.7-8.2 g/dL Albumin 3.8 3.2-4.8 g/dL Phosphorus Level 1.7 L 2.4-5.1 mg/dL Magnesium Level 1.4 L 1.6-2.6 mg/dL Differential Total Cells Counted 100.0 100 Neutrophils % (Manual) 76 37.0-80.0 Band Neutrophils % (Manual) 7 Lymphocytes % (Manual) 10 10.0-50.0 Monocytes % (Manual) 7 0-12 Eosinophils % (Manual) 0 0-7 Basophils % (Manual) 0 0.0-2.0 Metamyelocytes % (manual) 0 Myelocytes % (Manual) 0 Promyelocytes % (Manual) 0 Blast Cells % (Manual) 0 Reactive Lymphocytes 0 Platelet Estimate Adequate Blood Gas Specimen Type Arterial Blood Gas Sample Site Right brachial Blood Gas Patient Temperature 37.0 Arterial Blood Date Drawn [id number] Arterial Blood pH 7.571 *H 7.350-7.450 Arterial Blood Partial Pressure CO2 59.1 H 35.0-48.0 mmHg Arterial Blood Partial Pressure O2 70.7 L 83.0-108.0 mmHg Arterial Blood HCO3 53.1 H 21.0-28.0 mmol/L Arterial Blood Oxygen Saturation 92.8 L 94.0-98.0 % Arterial Blood Base Excess 26.6 H -2.0-3.0 mmol/L Arterial Blood Oxyhemoglobin 91.4 L 94.0-98.0 % Arterial Blood Carboxyhemoglobin 1.2 0.5-1.5 % Arterial Blood Methemoglobin 0.3 0.0-1.5 % Enrique Test N/a Blood Gas Total Hemoglobin 13.60 13.5-17.5 g/dL Blood Gas Liter Flow 3.00 Blood Gas Modality Nasal cannula FiO2 % 32.0 Blood Gas Critical Value Read Back Yes Blood Gas Notified Whom Dr. puentes Blood Gas Notified Time [id number] Blood Gas Notified By Tunde mckenzie, legal process specialist Test 02/28/25 04:36 02/25/25 13:30 02/22/25 19:00 02/22/25 05:04 Range/Units Vitamin D 25-Hydroxy 15.0 L 30.0-100 ng/mL Parathyroid Hormone (Intact) 65.1 18.4-80.1 pg/mL Blood Gas Set Respiration Rate 12.0 Blood Gas EPAP 5 Blood Gas IPAP 12 Urine Creatinine 130.92 H 30.0-125.0 mg/dL Urine Protein/Creatinine Ratio 0.60 Urine Sodium < 10 L 40-220 mmol/L Urine Total Protein 78.2 H 1-14 mg/dL Random Vancomycin Level 35.0 H 5-10 ug/mL Test 02/22/25 03:15 02/21/25 12:01 02/21/25 06:25 02/20/25 09:11 Range/Units Urine Color Dark yellow Yellow Urine Clarity Turbid H Clear Urine pH 5.0 5.0-9.0 Urine Specific [place] 1.023 1.001-1.035 Urine Protein 1+ H Negative Urine Ketones Trace Negative Urine Blood Trace H Negative /uL Urine Nitrite Negative Negative Urine Bilirubin Negative Negative Urine Urobilinogen Normal Negative mg/dL Urine Leukocyte Esterase Negative Negative /uL Urine RBC 6 0 - 3 /hpf Urine Microscopic WBC 7 H 0-3 /HPF Urine Squamous Epithelial Cells Few <5 /hpf Urine Amorphous Crystals Few None Seen /hpf Urine Bacteria None seen None Seen /hpf Urine Glucose Normal Normal mg/dL Vancomycin Level Trough 47.2 *H 5-10 ug/mL B-Type Natriuretic Peptide 77.12 0-100 pg/mL Triglycerides Level 129 < 150 mg/dL Cholesterol Level 130 < 200 mg/dL LDL Cholesterol 77 < 100 mg/dL HDL Cholesterol 27 L 40-59 mg/dL Thyroid Stimulating Hormone (TSH) 0.68 0.55-4.78 uIU/mL D-Dimer, Quantitative 1.32 H 0.0-0.49 mg/L FEU Test 02/20/25 07:48 02/20/25 03:26 Range/Units Lactic Acid Level 1.9 0.4-2.0 mmol/L Uric Acid 10.1 H 3.7-9.2 mg/dL Troponin I High Sensitivity 49 </=54 ng/L Prothrombin Time 13.4 H 9.3-11.8 sec Prothrombin Time INR 1.30 H 0.9-1.15 Activated Partial Thromboplast Time 42.0 H 24.5-34.5 SEC Microbiology Date/Time Source Procedure Growth Status 03/01/25 15:18 Blood Blood Culture - Final NO GROWTH AFTER 5 DAYS OF INCUBATION. Complete Assessment Impression: Acute hypoxic respiratory failure Chronic hypercarbic respiratory failure Dependence on supplemental oxygen Dyspnea Sepsis Acute kidney injury Hypokalemia Metabolic alkalosis Congestive heart failure Likely pulmonary hypertension Obesity hypoventilation syndrome Morbid obesity, BMI 42.9 Plan: Supplemental oxygen 4 LPM NC Titrate to keep O2 sats between 88-94%. Taper O2 as tolerated. Patient desaturated overnight Continue antibiotics WBC trending down. Bronchodilators PRN Follow up Cardiology recommendations. Monitor renal function. Monitor electrolytes. Supplement as necessary. Potassium supplementation Monitor ins and outs. Diet and lifestyle modifications for weight reduction Morbid obesity - complicates all care DVT prophylaxis. Prognosis: Poor given patient's multiple co-morbidities. Rest of plan per hospitalist and other consultants. Thank you Dr. Mora for allowing me to participate in this patient's care. Further recommendations will depend on the patient's clinical course. Please do not hesitate to contact me if you have any questions or concerns. This medical document was created using an electronic medical record system with [employer] dictation system. Although these documentations are being carefully reviewed, there may still be some phonetic and typographical changes. The errors are purely typographical, due to imperfection on the software program, and do not reflect any compromise in the patient's medical care. Plan discussed with: Other (ALEXANDRA Araiza/Dr. Mora) ERAN SHAFER MD Mar 06, 2025 23:47
[2025-03-07] VITALS (13 sets, daily range): BP systolic 118–164; BP diastolic 75–97; PULSE 82–100; RESP 17–20; TEMP 97.5–97.9; O2SAT 93–99
[2025-03-07 06:40] LABS: Hematocrit 30.3 % (41.0-53.0); Hemoglobin 10.1 g/dL (13.5-17.5); Mean Corpuscular Hemoglobin 29.2 pg (28.0-32.0); Mean Corpuscular Volume 87.3 fL (80.0-100.0); Nucleated Red Blood Cells % 0.0 %
[2025-03-07 06:55] LABS: Alanine Aminotransferase 29 U/L (7-40); Albumin 3.7 g/dL (3.2-4.8); Alkaline Phosphatase 97 U/L (46-116); Anion Gap 9 (5-15); BUN/Creatinine Ratio 14.7 (10.0-20.0); Blood Urea Nitrogen 15 mg/dL (9-23); Calcium 8.8 mg/dL (8.7-10.4); Total Protein 6.0 g/dL (5.7-8.2)
[2025-03-07 06:56] LABS: Bilirubin, Total 0.5 mg/dL (0.2-1.0)
[2025-03-07 07:02] LABS: Carbon Dioxide 38 mmol/L (20-31); Chloride 87 mmol/L (98-107); Glucose 121 mg/dL (74-106); Sodium 134 mmol/L (136-145)
[2025-03-07 07:03] LABS: Potassium 2.0 mmol/L (3.5-5.1)
[2025-03-07] MEDS: POTASSIUM CHL 20MEQ/100ML 100 ML IV SCH (08:41)
[2025-03-07] MEDS: POTASSIUM CHL 20 Meq TABLET PO ONE (08:41)
[2025-03-07] MEDS: MAGNESIUM SULFATE 1GM/100ML 100 ML IV SCH (08:41)
--- NOTE | 2025-03-07 11:18 | DVHPN2 ---
Progress Note Date Seen: Mar 07, 2025 Medical Necessity Reason Pt with a Central, PICC or Fol: No Subjective Patient reports: No new complaints Review of Systems: HEENT:Normal, CVS:Normal, RESPIRATORY:Normal, GI:Normal, :Normal, MSK:Normal, NEURO:Normal Objective vital signs Vital Sign Date Time Temp Pulse Resp B/P (MAP) Pulse Ox O2 Delivery O2 Flow Rate FiO2 03/07/25 09:00 97.9 100 20 164/77 (106) 97 97.9 03/07/25 07:30 Nasal Cannula* 3 32 Total Intake and Output 03/06/25 03/06/25 03/07/25 15:00 23:00 07:00 Intake Total 546 ml 300 ml Balance 546 ml 300 ml medications Current Medications Medications Dose Ordered Sig/Bradley Route Start Time Stop Time Status Last Admin Dose Admin Aspirin 81 mg DAILY PO 02/21/25 10:00 03/07/25 08:36 81 MG Ondansetron HCl 4 mg Q4HP PRN IV 02/20/25 09:00 03/01/25 05:47 4 MG Docusate Sodium 100 mg BIDPRN PRN PO 02/20/25 09:00 Nitroglycerin 0.4 mg Q5MINP PRN SL 02/20/25 09:00 Allopurinol 100 mg DAILY PO 02/22/25 10:00 03/07/25 08:36 100 MG Ipratropium [place] 0.5 mg Q4HPRN PRN NEB 02/27/25 06:00 03/03/25 09:26 0.5 MG Ergocalciferol 50,000 unit Q7D PO 03/01/25 14:15 03/01/25 15:46 50,000 UNIT Linezolid 300 ml @ 150 mls/hr Q12HR IV 03/02/25 22:00 03/07/25 08:54 150 MLS/HR Levofloxacin/ Dextrose 100 ml @ 100 mls/hr DAILY IV 03/04/25 10:00 03/07/25 10:31 100 MLS/HR Magnesium Oxide 800 mg BID PO 03/05/25 22:00 03/10/25 21:59 03/07/25 08:36 800 MG Sodium Phosphate 1 tab TIDWM PO 03/06/25 08:00 03/07/25 08:41 1 TAB Potassium Chloride 100 ml @ 50 mls/hr Q2H IV 03/07/25 07:45 03/07/25 11:44 03/07/25 08:41 50 MLS/HR Examination: GENERAL:Normal, HEENT:Normal, NECK:Normal, LUNGS:Normal, CVS:Normal, ABDOMEN:Normal, MSK:Normal, SKIN:Normal, NEURO:Normal, :Normal laboratory and microbiology Laboratory Tests 03/07/25 05:33 Test 03/07/25 05:33 Range/Units Serum Glucose 121 H 74-106 mg/dL Microbiology Date/Time Source Procedure Growth Status 03/01/25 15:18 Blood Blood Culture - Final NO GROWTH AFTER 5 DAYS OF INCUBATION. Complete Problem List/Assessment/Plan Problem List/Assessment/Plan #1 acute resp failure: check abg #2 gout with flare up: DC steroids, allopurinol #3 morbid obesity #4 alcoholic dilated cardiomyopathy #5 ? acute systolic heart failure: dc bumex #6 acute renal failure ?vasomotor nephropathy: dc bumex , dc metolazone #7 liver cirrhosis- alcoholic #8 sepsis with cellulitis: ct abd/pelvis/chest, levaquin, zyvox, cultures #9 hyponatremia #10 hypokalemia: replace advance care planning- full code- time spent 18 mins Plan discussed with: Patient Dietary Evaluation Review Comments: 1) cardiac + low purine diet 2) Monitoe PO intake, lab values, I/O, wt trend Expected Outcomes/Goals: lab vlaues to improve Fu 3-5 days Date of Service: Mar 07, 2025 Billing Provider: ANA POTTER MD Common Visit Codes: [id number] INP/OBS CARE(HIGH) ANA POTTER MD Mar 07, 2025 11:18
--- NOTE | 2025-03-07 13:20 | DVHPN2 ---
Progress Note Date Seen: Mar 07, 2025 Medical Necessity Reason Pt with a Central, PICC or Fol: No Subjective Review of Systems: Deferred Objective vital signs Vital Sign Date Time Temp Pulse Resp B/P (MAP) Pulse Ox O2 Delivery O2 Flow Rate FiO2 03/07/25 10:30 97 Nasal Cannula* 3 32 03/07/25 09:00 97.9 100 20 164/77 (106) 97.9 Total Intake and Output 03/06/25 03/06/25 03/07/25 15:00 23:00 07:00 Intake Total 546 ml 300 ml Balance 546 ml 300 ml medications Current Medications Medications Dose Ordered Sig/Bradley Route Start Time Stop Time Status Last Admin Dose Admin Aspirin 81 mg DAILY PO 02/21/25 10:00 03/07/25 08:36 81 MG Ondansetron HCl 4 mg Q4HP PRN IV 02/20/25 09:00 03/01/25 05:47 4 MG Docusate Sodium 100 mg BIDPRN PRN PO 02/20/25 09:00 Nitroglycerin 0.4 mg Q5MINP PRN SL 02/20/25 09:00 Allopurinol 100 mg DAILY PO 02/22/25 10:00 03/07/25 08:36 100 MG Ipratropium [place] 0.5 mg Q4HPRN PRN NEB 02/27/25 06:00 03/03/25 09:26 0.5 MG Ergocalciferol 50,000 unit Q7D PO 03/01/25 14:15 03/01/25 15:46 50,000 UNIT Magnesium Oxide 800 mg BID PO 03/05/25 22:00 03/10/25 21:59 03/07/25 08:36 800 MG Sodium Phosphate 1 tab TIDWM PO 03/06/25 08:00 03/07/25 12:09 1 TAB Examination: GENERAL:Abnormal laboratory and microbiology Laboratory Tests 03/07/25 05:33 Test 03/07/25 05:33 Range/Units Serum Glucose 121 H 74-106 mg/dL Microbiology Date/Time Source Procedure Growth Status 03/01/25 15:18 Blood Blood Culture - Final NO GROWTH AFTER 5 DAYS OF INCUBATION. Complete Problem List/Assessment/Plan Problem List/Assessment/Plan Acute kidney injury Acute on chronic respiratory failure, patient on O2 Chronic Hypercarbia due to hypoventilation syndrome Hypokalemic metabolic alkalosis Chronic CO2 retention Acute on chronic systolic Congestive heart failure exacerbation EF 20 Liver cirrhosis Anasarca Hypomagnesemia loop diuretics held potassium replacement today penitentiary requires diuretics rec VBG tomorrow consider diamox based on results BP is better rec start aldactone for K sparing and diuresis Plan discussed with: Patient Dietary Evaluation Review Comments: 1) cardiac + low purine diet 2) Monitoe PO intake, lab values, I/O, wt trend Expected Outcomes/Goals: lab vlaues to improve Fu 3-5 days Total Time (mins): 35 RAGHU CELESTE MD Mar 07, 2025 13:20
[2025-03-07 17:00] LABS: Potassium 3.1 mmol/L (3.5-5.1)
[2025-03-07] MEDS: SPIRONOLACTONE 25 MG TAB PO SCH (17:03)
[2025-03-07 17:13] LABS: Magnesium 1.5 mg/dL (1.6-2.6)
[2025-03-08] VITALS (13 sets, daily range): BP systolic 128–149; BP diastolic 61–97; PULSE 78–109; RESP 17–20; TEMP 97–98.6; O2SAT 92–100
[2025-03-08 06:35] LABS: Hematocrit 30.4 % (41.0-53.0); Hemoglobin 10.5 g/dL (13.5-17.5); Mean Corpuscular Hemoglobin 30.0 pg (28.0-32.0); Mean Corpuscular Volume 86.8 fL (80.0-100.0); Nucleated Red Blood Cells % 0.0 %
[2025-03-08 06:59] LABS: Anion Gap 8 (5-15)
[2025-03-08 07:05] LABS: BUN/Creatinine Ratio 14.7 (10.0-20.0)
[2025-03-08 07:14] LABS: Blood Urea Nitrogen 14 mg/dL (9-23); Calcium 8.9 mg/dL (8.7-10.4); Carbon Dioxide 36 mmol/L (20-31); Chloride 91 mmol/L (98-107); Glucose 129 mg/dL (74-106); Magnesium 1.5 mg/dL (1.6-2.6); Potassium 2.4 mmol/L (3.5-5.1); Sodium 135 mmol/L (136-145)
[2025-03-08] MEDS: POTASSIUM CHLORIDE 40 MEQ, LIDOCAINE 1% (LOCAL ANESTH.) 4 ML in SODIUM CHL 0.9% 250 ML IV ONE (08:57)
[2025-03-08] MEDS: POTASSIUM CHL 20 Meq TABLET PO ONE (08:58)
--- NOTE | 2025-03-08 10:33 | DVHPN2 ---
Progress Note Date Seen: Mar 08, 2025 Medical Necessity Reason Pt with a Central, PICC or Fol: No Subjective Patient reports: No new complaints Objective vital signs Vital Sign Date Time Temp Pulse Resp B/P (MAP) Pulse Ox O2 Delivery O2 Flow Rate FiO2 03/08/25 09:00 97.0 94 20 131/91 (104) 100 97.0 03/08/25 07:44 Nasal Cannula* 3 32 Total Intake and Output 03/07/25 03/07/25 03/08/25 15:00 23:00 07:00 Intake Total 200 ml Balance 200 ml medications Current Medications Medications Dose Ordered Sig/Bradley Route Start Time Stop Time Status Last Admin Dose Admin Aspirin 81 mg DAILY PO 02/21/25 10:00 03/08/25 08:58 81 MG Ondansetron HCl 4 mg Q4HP PRN IV 02/20/25 09:00 03/01/25 05:47 4 MG Docusate Sodium 100 mg BIDPRN PRN PO 02/20/25 09:00 Nitroglycerin 0.4 mg Q5MINP PRN SL 02/20/25 09:00 Allopurinol 100 mg DAILY PO 02/22/25 10:00 03/08/25 08:58 100 MG Ipratropium [place] 0.5 mg Q4HPRN PRN NEB 02/27/25 06:00 03/03/25 09:26 0.5 MG Ergocalciferol 50,000 unit Q7D PO 03/01/25 14:15 03/01/25 15:46 50,000 UNIT Magnesium Oxide 800 mg BID PO 03/05/25 22:00 03/10/25 21:59 03/08/25 08:58 800 MG Sodium Phosphate 1 tab TIDWM PO 03/06/25 08:00 03/08/25 09:03 1 TAB Spironolactone 25 mg BIDD PO 03/07/25 13:30 03/08/25 05:49 25 MG Examination: GENERAL:Abnormal, LUNGS:Abnormal laboratory and microbiology Laboratory Tests 03/08/25 05:24 Test 03/08/25 05:24 Range/Units Serum Glucose 129 H 74-106 mg/dL Microbiology Date/Time Source Procedure Growth Status 03/01/25 15:18 Blood Blood Culture - Final NO GROWTH AFTER 5 DAYS OF INCUBATION. Complete Problem List/Assessment/Plan Problem List/Assessment/Plan Acute kidney injury Acute on chronic respiratory failure, patient on O2 Chronic Hypercarbia due to hypoventilation syndrome Hypokalemic metabolic alkalosis Chronic CO2 retention Acute on chronic systolic Congestive heart failure exacerbation EF 20 Liver cirrhosis Anasarca Hypomagnesemia loop diuretics held potassium replacement today, aldactone tolerated BID, Mg IV replacement [facility] requires diuretics VBG today, reports bipap at night but cant lay flat no ankle edema. CXR today Plan discussed with: Patient My Orders My Orders Orders - RAGHU CELETSE MD Procedure Category Date Status Time Spironolactone PHA 03/07/25 In Process (Aldactone) 13:30 Dietary Evaluation Review Comments: 1) cardiac + low purine diet 2) Monitoe PO intake, lab values, I/O, wt trend Expected Outcomes/Goals: lab vlaues to improve Fu 3-5 days Total Time (mins): 50 RAGHU CELESTE MD Mar 08, 2025 10:33
[2025-03-08] MEDS ORDERED: MAGNESIUM SULFATE 1GM/100ML 100 ML IV SCH (11:00)
--- NOTE | 2025-03-08 11:28 | DVHPN2 ---
Progress Note Date Seen: Mar 08, 2025 Medical Necessity Reason Pt with a Central, PICC or Fol: No Subjective Patient reports: No new complaints Review of Systems: HEENT:Normal, CVS:Normal, RESPIRATORY:Normal, GI:Normal, :Normal, MSK:Normal, NEURO:Normal Objective vital signs Vital Sign Date Time Temp Pulse Resp B/P (MAP) Pulse Ox O2 Delivery O2 Flow Rate FiO2 03/08/25 09:00 97.0 94 20 131/91 (104) 100 97.0 03/08/25 07:44 Nasal Cannula* 3 32 Total Intake and Output 03/07/25 03/07/25 03/08/25 15:00 23:00 07:00 Intake Total 200 ml Balance 200 ml medications Current Medications Medications Dose Ordered Sig/Bradley Route Start Time Stop Time Status Last Admin Dose Admin Aspirin 81 mg DAILY PO 02/21/25 10:00 03/08/25 08:58 81 MG Ondansetron HCl 4 mg Q4HP PRN IV 02/20/25 09:00 03/01/25 05:47 4 MG Docusate Sodium 100 mg BIDPRN PRN PO 02/20/25 09:00 Nitroglycerin 0.4 mg Q5MINP PRN SL 02/20/25 09:00 Allopurinol 100 mg DAILY PO 02/22/25 10:00 03/08/25 08:58 100 MG Ipratropium [place] 0.5 mg Q4HPRN PRN NEB 02/27/25 06:00 03/03/25 09:26 0.5 MG Ergocalciferol 50,000 unit Q7D PO 03/01/25 14:15 03/01/25 15:46 50,000 UNIT Magnesium Oxide 800 mg BID PO 03/05/25 22:00 03/10/25 21:59 03/08/25 08:58 800 MG Sodium Phosphate 1 tab TIDWM PO 03/06/25 08:00 03/08/25 09:03 1 TAB Spironolactone 25 mg BIDD PO 03/07/25 13:30 03/08/25 05:49 25 MG Magnesium Sulfate/ Dextrose 100 ml @ 100 mls/hr Q1HR IV 03/08/25 11:00 03/08/25 12:59 UNV Examination: GENERAL:Normal, HEENT:Normal, NECK:Normal, LUNGS:Normal, CVS:Normal, ABDOMEN:Normal, MSK:Normal, SKIN:Normal, NEURO:Normal, :Normal laboratory and microbiology Laboratory Tests 03/08/25 05:24 Test 03/08/25 05:24 Range/Units Serum Glucose 129 H 74-106 mg/dL Microbiology Date/Time Source Procedure Growth Status 03/01/25 15:18 Blood Blood Culture - Final NO GROWTH AFTER 5 DAYS OF INCUBATION. Complete Problem List/Assessment/Plan Problem List/Assessment/Plan #1 acute resp failure: check abg #2 gout with flare up: DC steroids, allopurinol #3 morbid obesity #4 alcoholic dilated cardiomyopathy #5 ? acute systolic heart failure: dc bumex #6 acute renal failure ?vasomotor nephropathy: dc bumex , dc metolazone #7 liver cirrhosis- alcoholic #8 sepsis with cellulitis: ct abd/pelvis/chest, levaquin, zyvox, cultures #9 hyponatremia #10 hypokalemia: replace advance care planning- full code- time spent 18 mins Plan discussed with: Patient Dietary Evaluation Review Comments: 1) cardiac + low purine diet 2) Monitoe PO intake, lab values, I/O, wt trend Expected Outcomes/Goals: lab vlaues to improve Fu 3-5 days Date of Service: Mar 08, 2025 Billing Provider: ANA POTTER MD Common Visit Codes: [id number] INP/OBS CARE(HIGH) ANA POTTER MD Mar 08, 2025 11:28
--- NOTE | 2025-03-08 11:58 | DVH ---
EXAM: XY CHEST TWO VIEWS ROUTINE CLINICAL HISTORY: SOB COMPARISON: None TECHNIQUE: Frontal and lateral view of the chest was obtained FINDINGS: Lines and Tubes: None Lungs: Bibasilar opacities Pleura: No effusion. No pneumothorax. Cardiomediastinal contours: Unremarkable. Cardiomegaly. Bones: No acute osseous abnormality. IMPRESSION: Cardiomegaly. Bibasilar opacities.
[2025-03-08] MEDS: MAGNESIUM SULFATE 1GM/100ML 100 ML IV SCH (12:19)
[2025-03-09] VITALS (14 sets, daily range): BP systolic 111–134; BP diastolic 61–93; PULSE 63–123; RESP 16–20; TEMP 97.1–98.6; O2SAT 93–99
[2025-03-09] MEDS: HYDROcodone-ACET 5/325MG TAB PO PRN ×2 (03:38→19:40)
[2025-03-09 06:51] LABS: Anion Gap 9 (5-15)
[2025-03-09 06:52] LABS: Calcium 8.9 mg/dL (8.7-10.4)
[2025-03-09 06:57] LABS: BUN/Creatinine Ratio 14.3 (10.0-20.0); Blood Urea Nitrogen 11 mg/dL (9-23)
[2025-03-09 06:59] LABS: Carbon Dioxide 35 mmol/L (20-31); Chloride 92 mmol/L (98-107); Glucose 137 mg/dL (74-106); Magnesium 1.6 mg/dL (1.6-2.6); Potassium 2.8 mmol/L (3.5-5.1); Sodium 136 mmol/L (136-145)
--- NOTE | 2025-03-09 13:37 | DVHPN2 ---
Progress Note Date Seen: Mar 09, 2025 Medical Necessity Reason Pt with a Central, PICC or Fol: No Subjective Patient reports: No new complaints Review of Systems: HEENT:Normal, CVS:Normal, RESPIRATORY:Normal, GI:Normal, :Normal, MSK:Normal, NEURO:Normal Objective vital signs Vital Sign Date Time Temp Pulse Resp B/P (MAP) Pulse Ox O2 Delivery O2 Flow Rate FiO2 03/09/25 10:00 98 Nasal Cannula 2.0 03/09/25 10:00 28 03/09/25 09:13 98.0 123 20 118/85 (96) 98.0 Total Intake and Output 03/08/25 03/08/25 03/09/25 15:00 23:00 07:00 Intake Total 374 ml Balance 374 ml medications Current Medications Medications Dose Ordered Sig/Bradley Route Start Time Stop Time Status Last Admin Dose Admin Aspirin 81 mg DAILY PO 02/21/25 10:00 03/09/25 09:42 81 MG Ondansetron HCl 4 mg Q4HP PRN IV 02/20/25 09:00 03/01/25 05:47 4 MG Docusate Sodium 100 mg BIDPRN PRN PO 02/20/25 09:00 Nitroglycerin 0.4 mg Q5MINP PRN SL 02/20/25 09:00 Allopurinol 100 mg DAILY PO 02/22/25 10:00 03/09/25 09:42 100 MG Ipratropium [place] 0.5 mg Q4HPRN PRN NEB 02/27/25 06:00 03/03/25 09:26 0.5 MG Ergocalciferol 50,000 unit Q7D PO 03/01/25 14:15 03/08/25 18:10 50,000 UNIT Magnesium Oxide 800 mg BID PO 03/05/25 22:00 03/10/25 21:59 03/09/25 09:42 800 MG Sodium Phosphate 1 tab TIDWM PO 03/06/25 08:00 03/09/25 11:45 1 TAB Spironolactone 25 mg BIDD PO 03/07/25 13:30 03/09/25 05:56 25 MG Magnesium Sulfate/ Dextrose 100 ml @ 100 mls/hr Q1HR IV 03/08/25 11:00 03/08/25 12:59 UNV Acetaminophen/ Hydrocodone Bitart 1 tab Q8HPRN PRN PO 03/09/25 03:30 03/09/25 11:46 1 TAB Examination: GENERAL:Normal, HEENT:Normal, NECK:Normal, LUNGS:Normal, CVS:Normal, ABDOMEN:Normal, MSK:Normal, SKIN:Normal, NEURO:Normal, :Normal laboratory and microbiology Laboratory Tests 03/09/25 04:56 03/08/25 05:24 Test 03/09/25 04:56 Range/Units Serum Glucose 137 H 74-106 mg/dL Microbiology Date/Time Source Procedure Growth Status 03/01/25 15:18 Blood Blood Culture - Final NO GROWTH AFTER 5 DAYS OF INCUBATION. Complete Problem List/Assessment/Plan Problem List/Assessment/Plan #1 acute resp failure: check abg #2 gout with flare up: DC steroids, allopurinol #3 morbid obesity #4 alcoholic dilated cardiomyopathy #5 ? acute systolic heart failure: dc bumex #6 acute renal failure ?vasomotor nephropathy: dc bumex , dc metolazone #7 liver cirrhosis- alcoholic #8 sepsis with cellulitis: ct abd/pelvis/chest, levaquin, zyvox, cultures #9 hyponatremia #10 hypokalemia: replace advance care planning- full code- time spent 18 mins Plan discussed with: Patient My Orders My Orders Orders - ANA POTTER MD Procedure Category Date Status Time BIPAP RT 03/08/25 Logged 12:30 Hydrocodone-Acet PHA 03/09/25 Verified 5/325mg Tab (Robert 13:45 Potassium Chl [place] PHA 03/09/25 Verified KCL 13:45 Potassium Er Tablet PHA 03/09/25 Verified (Klor-Con Tablet) 13:45 Magnesium [place] PHA 03/09/25 Verified 14:00 Basic Metabolic Panel LAB 03/10/25 Verified 06:00 Complete Blood Count LAB 03/10/25 Verified 06:00 Magnesium LAB 03/10/25 Verified 05:00 Dietary Evaluation Review Comments: 1) cardiac + low purine diet 2) Monitoe PO intake, lab values, I/O, wt trend Expected Outcomes/Goals: lab vlaues to improve Fu 3-5 days Date of Service: Mar 09, 2025 Billing Provider: ANA POTTER MD Common Visit Codes: [id number] INP/OBS CARE(HIGH) Secondary Visit Codes: [id number] CARE PLAN 30 MINUTES ANA POTTER MD Mar 09, 2025 13:37
[2025-03-09] MEDS: POTASSIUM CHL 20 Meq TABLET PO ONE (14:04)
[2025-03-09] MEDS: MAGNESIUM SULFATE 1GM/100ML 100 ML IV SCH (14:09)
--- NOTE | 2025-03-09 14:22 | DVHPN2 ---
Progress Note Date Seen: Mar 09, 2025 Medical Necessity Reason Pt with a Central, PICC or Fol: No Subjective Patient reports: Feels better Objective vital signs Vital Sign Date Time Temp Pulse Resp B/P (MAP) Pulse Ox O2 Delivery O2 Flow Rate FiO2 03/09/25 12:30 97.6 63 16 111/78 (89) 93 97.6 03/09/25 10:00 Nasal Cannula 2.0 03/09/25 10:00 28 Total Intake and Output 03/08/25 03/08/25 03/09/25 14:59 22:59 06:59 Intake Total 374 ml Balance 374 ml medications Current Medications Medications Dose Ordered Sig/Bradley Route Start Time Stop Time Status Last Admin Dose Admin Aspirin 81 mg DAILY PO 02/21/25 10:00 03/09/25 09:42 81 MG Ondansetron HCl 4 mg Q4HP PRN IV 02/20/25 09:00 03/01/25 05:47 4 MG Docusate Sodium 100 mg BIDPRN PRN PO 02/20/25 09:00 Nitroglycerin 0.4 mg Q5MINP PRN SL 02/20/25 09:00 Allopurinol 100 mg DAILY PO 02/22/25 10:00 03/09/25 09:42 100 MG Ipratropium [place] 0.5 mg Q4HPRN PRN NEB 02/27/25 06:00 03/03/25 09:26 0.5 MG Ergocalciferol 50,000 unit Q7D PO 03/01/25 14:15 03/08/25 18:10 50,000 UNIT Magnesium Oxide 800 mg BID PO 03/05/25 22:00 03/10/25 21:59 03/09/25 09:42 800 MG Sodium Phosphate 1 tab TIDWM PO 03/06/25 08:00 03/09/25 11:45 1 TAB Spironolactone 25 mg BIDD PO 03/07/25 13:30 03/09/25 05:56 25 MG Magnesium Sulfate/ Dextrose 100 ml @ 100 mls/hr Q1HR IV 03/08/25 11:00 03/08/25 12:59 UNV Acetaminophen/ Hydrocodone Bitart 1 tab Q6HP PRN PO 03/09/25 18:00 Magnesium Sulfate/ Dextrose 100 ml @ 100 mls/hr Q1HR IV 03/09/25 14:00 03/09/25 15:59 03/09/25 14:09 100 MLS/HR Examination: GENERAL:Abnormal, ABDOMEN:Abnormal laboratory and microbiology Laboratory Tests 03/09/25 04:56 03/08/25 05:24 Test 03/09/25 04:56 Range/Units Serum Glucose 137 H 74-106 mg/dL Microbiology Date/Time Source Procedure Growth Status 03/01/25 15:18 Blood Blood Culture - Final NO GROWTH AFTER 5 DAYS OF INCUBATION. Complete Problem List/Assessment/Plan Problem List/Assessment/Plan Acute kidney injury Acute on chronic respiratory failure, patient on O2 Chronic Hypercarbia due to hypoventilation syndrome Hypokalemic metabolic alkalosis Chronic CO2 retention Acute on chronic systolic Congestive heart failure exacerbation EF 20 Liver cirrhosis Anasarca Hypomagnesemia loop diuretics held potassium replacement today, aldactone tolerated BID ( increase dose to maximum tolerated) IV MG jail requires diuretics bipap Plan discussed with: Patient My Orders My Orders Orders - RAGHU CELESTE MD Procedure Category Date Status Time Venous Blood Gas RT 03/09/25 Logged 04:40 Dietary Evaluation Review Comments: 1) cardiac + low purine diet 2) Monitoe PO intake, lab values, I/O, wt trend Expected Outcomes/Goals: lab vlaues to improve Fu 3-5 days Total Time (mins): 35 RAGHU CELESTE MD Mar 09, 2025 14:22
[2025-03-09] MEDS: POTASSIUM CHLORIDE 80 MEQ, LIDOCAINE 1% (LOCAL ANESTH.) 6 ML in SODIUM CHL 0.9% 500 ML IV ONE (14:40)
[2025-03-09] MEDS: SPIRONOLACTONE 25 MG TAB PO SCH (17:22)
[2025-03-10] VITALS (8 sets, daily range): BP systolic 120–127; BP diastolic 78–94; PULSE 107–116; RESP 19–21; TEMP 97.1–98.1; O2SAT 92–98
[2025-03-10 06:54] LABS: Hematocrit 30.7 % (41.0-53.0); Hemoglobin 10.2 g/dL (13.5-17.5); Mean Corpuscular Hemoglobin 29.4 pg (28.0-32.0); Mean Corpuscular Volume 88.0 fL (80.0-100.0); Nucleated Red Blood Cells % 0.0 %
[2025-03-10 07:04] LABS: Anion Gap 4 (5-15); Calcium 9.7 mg/dL (8.7-10.4); Potassium 4.2 mmol/L (3.5-5.1)
[2025-03-10 07:10] LABS: BUN/Creatinine Ratio 13.8 (10.0-20.0); Blood Urea Nitrogen 11 mg/dL (9-23)
[2025-03-10 07:18] LABS: Carbon Dioxide 36 mmol/L (20-31); Chloride 94 mmol/L (98-107); Glucose 156 mg/dL (74-106); Magnesium 1.6 mg/dL (1.6-2.6); Sodium 134 mmol/L (136-145)
--- NOTE | 2025-03-10 14:12 | DVHPN2 ---
Progress Note Date Seen: Mar 10, 2025 Medical Necessity Reason Pt with a Central, PICC or Fol: No Subjective Patient reports: No new complaints Objective vital signs Vital Sign Date Time Temp Pulse Resp B/P (MAP) Pulse Ox O2 Delivery O2 Flow Rate FiO2 03/10/25 12:41 98.0 107 21 127/90 (102) 98 98.0 03/10/25 10:00 Nasal Cannula 2.0 03/10/25 10:00 28 Total Intake and Output 03/09/25 03/09/25 03/10/25 15:00 23:00 07:00 Intake Total 100 ml Balance 100 ml medications Current Medications Medications Dose Ordered Sig/Bradley Route Start Time Stop Time Status Last Admin Dose Admin Aspirin 81 mg DAILY PO 02/21/25 10:00 03/10/25 08:33 81 MG Ondansetron HCl 4 mg Q4HP PRN IV 02/20/25 09:00 03/01/25 05:47 4 MG Docusate Sodium 100 mg BIDPRN PRN PO 02/20/25 09:00 Nitroglycerin 0.4 mg Q5MINP PRN SL 02/20/25 09:00 Allopurinol 100 mg DAILY PO 02/22/25 10:00 03/10/25 08:32 100 MG Ipratropium [place] 0.5 mg Q4HPRN PRN NEB 02/27/25 06:00 03/03/25 09:26 0.5 MG Ergocalciferol 50,000 unit Q7D PO 03/01/25 14:15 03/08/25 18:10 50,000 UNIT Magnesium Oxide 800 mg BID PO 03/05/25 22:00 03/10/25 21:59 03/10/25 08:33 800 MG Sodium Phosphate 1 tab TIDWM PO 03/06/25 08:00 03/10/25 12:05 1 TAB Magnesium Sulfate/ Dextrose 100 ml @ 100 mls/hr Q1HR IV 03/08/25 11:00 03/08/25 12:59 UNV Acetaminophen/ Hydrocodone Bitart 1 tab Q6HP PRN PO 03/09/25 18:00 03/10/25 06:27 1 TAB Spironolactone 50 mg BIDD PO 03/09/25 18:00 03/10/25 06:25 50 MG Examination: GENERAL:Normal, LUNGS:Abnormal, CVS:Normal, SKIN:Normal laboratory and microbiology Laboratory Tests 03/10/25 06:05 Test 03/10/25 06:05 Range/Units Serum Glucose 156 H 74-106 mg/dL Microbiology Date/Time Source Procedure Growth Status 03/01/25 15:18 Blood Blood Culture - Final NO GROWTH AFTER 5 DAYS OF INCUBATION. Complete Problem List/Assessment/Plan Problem List/Assessment/Plan Acute kidney injury Acute on chronic respiratory failure, patient on O2 Chronic Hypercarbia due to hypoventilation syndrome Hypokalemic metabolic alkalosis Chronic CO2 retention Acute on chronic systolic Congestive heart failure exacerbation EF 20 Liver cirrhosis Anasarca Hypomagnesemia aldactone increased to maximum dose of 100 mg p.o. daily, start Lasix 20 mg p.o. tomorrow Discontinue daily potassium supplement now that potassium has normalized bipap If all electrolytes are corrected, From a nephrology standpoint patient will be followed up and outpatient clinic Plan discussed with: Patient My Orders My Orders Orders - RAGHU CELESTE MD Procedure Category Date Status Time Spironolactone PHA 03/09/25 In Process (Aldactone) 18:00 Dietary Evaluation Review Comments: 1) cardiac + low purine diet 2) Monitoe PO intake, lab values, I/O, wt trend Expected Outcomes/Goals: lab vlaues to improve Fu 3-5 days RAGHU CELESTE MD Mar 10, 2025 14:12
--- NOTE | 2025-03-10 14:34 | DVHDS2 ---
Discharge Summary Date of Admission Feb 20, 2025 at 08:52 Date of Discharge: Mar 10, 2025 Labs/Diagnostic Data: Laboratory Results Test 03/10/25 06:05 03/09/25 04:55 03/07/25 16:20 03/07/25 05:33 White Blood Count 14.9 10^3/uL (4.4-10.8) Red Blood Count 3.49 10^6/uL (4.5-5.90) Hemoglobin 10.2 g/dL (13.5-17.5) Hematocrit 30.7 % (41.0-53.0) Mean Corpuscular Volume 88.0 fL (80.0-100.0) Mean Corpuscular Hemoglobin 29.4 pg (28.0-32.0) Mean Corpuscular Hemoglobin Concent 33.4 g/dL (32.0-36.0) Red Cell Distribution Width 14.4 % (11.8-14.3) Platelet Count 225 10^3/uL (140-450) Mean Platelet Volume 7.5 fL (6.9-10.8) Neutrophils (%) (Auto) 88.7 % (37.0-80.0) Lymphocytes (%) (Auto) 4.2 % (10.0-50.0) Monocytes (%) (Auto) 6.4 % (0.0-12.0) Eosinophils (%) (Auto) 0.3 % (0.0-7.0) Basophils (%) (Auto) 0.4 % (0.0-2.0) Neutrophils # (Auto) 13.3 10 ^3/uL (1.6-8.6) Lymphocytes # (Auto) 0.6 10 ^3/uL (0.4-5.4) Monocytes # (Auto) 1.0 10 ^3/uL (0-1.3) Eosinophils # (Auto) 0 10 ^3/uL (0-0.8) Basophils # (Auto) 0.1 10 ^3/uL (0-0.2) Nucleated Red Blood Cells 0.0 % Sodium Level 134 mmol/L (136-145) Potassium Level 4.2 mmol/L (3.5-5.1) Chloride Level 94 mmol/L (98-107) Carbon Dioxide Level 36 mmol/L (20-31) Anion Gap 4 (5-15) Blood Urea Nitrogen 11 mg/dL (9-23) Creatinine 0.80 mg/dL (0.700-1.30) Glomerular Filtration Rate Calc 108 mL/min (>90) BUN/Creatinine Ratio 13.8 (10.0-20.0) Serum Glucose 156 mg/dL (74-106) Calcium Level 9.7 mg/dL (8.7-10.4) Magnesium Level 1.6 mg/dL (1.6-2.6) Blood Gas Specimen Type Venous Blood Gas Sample Site Vbg - n/a Blood Gas Patient Temperature 37.0 Arterial Blood Date Drawn [id number] Enrique Test N/a Venous Blood pH 7.418 (7.320-7.430) Venous Blood pCO2 at Patient Temp 53.3 mmHg (38.0-54.0) Venous Blood pO2 at Patient Temp 41.1 mmHg (23.0-48.0) Venous Blood HCO3 33.6 mmol/L (22.0-29.0) Venous Blood Base Excess 7.4 mmol/L (-2.0-3.0) Blood Gas Set Respiration Rate 12.0 Blood Gas Modality Mask - bipap FiO2 % 30.0 Blood Gas EPAP 5 Blood Gas IPAP 12 Blood Gas Comments 08/12, bur 12 Phosphorus Level 3.3 mg/dL (2.4-5.1) Total Bilirubin 0.5 mg/dL (0.2-1.0) Aspartate Amino Transferase (AST) 23 U/L (<34) Alanine Aminotransferase (ALT) 29 U/L (7-40) Alkaline Phosphatase 97 U/L (46-116) Total Protein 6.0 g/dL (5.7-8.2) Albumin 3.7 g/dL (3.2-4.8) Test 03/02/25 06:25 02/28/25 15:26 02/28/25 04:36 02/22/25 19:00 Differential Total Cells Counted 100.0 (100) Neutrophils % (Manual) 76 (37.0-80.0) Band Neutrophils % (Manual) 7 Lymphocytes % (Manual) 10 (10.0-50.0) Monocytes % (Manual) 7 (0-12) Eosinophils % (Manual) 0 (0-7) Basophils % (Manual) 0 (0.0-2.0) Metamyelocytes % (manual) 0 Myelocytes % (Manual) 0 Promyelocytes % (Manual) 0 Blast Cells % (Manual) 0 Reactive Lymphocytes 0 Platelet Estimate Adequate Arterial Blood pH 7.571 (7.350-7.450) Arterial Blood Partial Pressure CO2 59.1 mmHg (35.0-48.0) Arterial Blood Partial Pressure O2 70.7 mmHg (83.0-108.0) Arterial Blood HCO3 53.1 mmol/L (21.0-28.0) Arterial Blood Oxygen Saturation 92.8 % (94.0-98.0) Arterial Blood Base Excess 26.6 mmol/L (-2.0-3.0) Arterial Blood Oxyhemoglobin 91.4 % (94.0-98.0) Arterial Blood Carboxyhemoglobin 1.2 % (0.5-1.5) Arterial Blood Methemoglobin 0.3 % (0.0-1.5) Blood Gas Total Hemoglobin 13.60 g/dL (13.5-17.5) Blood Gas Liter Flow 3.00 Blood Gas Critical Value Read Back Yes Blood Gas Notified Whom Dr. potter Blood Gas Notified Time [id number] Blood Gas Notified By Tunde mckenzie, ante Vitamin D 25-Hydroxy 15.0 ng/mL (30.0-100) Parathyroid Hormone (Intact) 65.1 pg/mL (18.4-80.1) Urine Creatinine 130.92 mg/dL (30.0-125.0) Urine Protein/Creatinine Ratio 0.60 Urine Sodium < 10 mmol/L (40-220) Urine Total Protein 78.2 mg/dL (1-14) Test 02/22/25 05:04 02/22/25 03:15 02/21/25 12:01 02/21/25 06:25 Random Vancomycin Level 35.0 ug/mL (5-10) Urine Color Dark yellow (Yellow) Urine Clarity Turbid (Clear) Urine pH 5.0 (5.0-9.0) Urine Specific [place] 1.023 (1.001-1.035) Urine Protein 1+ (Negative) Urine Ketones Trace (Negative) Urine Blood Trace /uL (Negative) Urine Nitrite Negative (Negative) Urine Bilirubin Negative (Negative) Urine Urobilinogen Normal mg/dL (Negative) Urine Leukocyte Esterase Negative /uL (Negative) Urine RBC 6 /hpf (0 - 3) Urine Microscopic WBC 7 /HPF (0-3) Urine Squamous Epithelial Cells Few /hpf (<5) Urine Amorphous Crystals Few /hpf (None Seen) Urine Bacteria None seen /hpf (None Seen) Urine Glucose Normal mg/dL (Normal) Vancomycin Level Trough 47.2 ug/mL (5-10) B-Type Natriuretic Peptide 77.12 pg/mL (0-100) Triglycerides Level 129 mg/dL (< 150) Cholesterol Level 130 mg/dL (< 200) LDL Cholesterol 77 mg/dL (< 100) HDL Cholesterol 27 mg/dL (40-59) Thyroid Stimulating Hormone (TSH) 0.68 uIU/mL (0.55-4.78) Test 02/20/25 09:11 02/20/25 07:48 02/20/25 03:26 D-Dimer, Quantitative 1.32 mg/L FEU (0.0-0.49) Lactic Acid Level 1.9 mmol/L (0.4-2.0) Uric Acid 10.1 mg/dL (3.7-9.2) Troponin I High Sensitivity 49 ng/L (</=54) Prothrombin Time 13.4 sec (9.3-11.8) Prothrombin Time INR 1.30 (0.9-1.15) Activated Partial Thromboplast Time 42.0 SEC (24.5-34.5) Other Laboratory Tests 03/10/25 06:05 Brief Hx & Hospital Course: see dictated note Condition at Discharge: Fair Final Diagnosis/Problems List liver cirrhosis Discharge Disposition: Home Discharge Instruct/Medications Diet: Cardiac 2g Na,low cholest Diet comment: fluid restriction to 1100 cc/day Activity: No Restrictions, As Tolerated Follow Up/Referral: fu wi pcp in 1 wk Medications: script to pharmacy Scheduled Allopurinol (Allopurinol), 300 MG PO DAILY, (Reported) Aspirin (Aspir-81), 1 TAB PO DAILY, (Reported) Atorvastatin Calcium (Lipitor), 1 TAB PO DAILY, (Reported) Famotidine (Gnp Acid Fuel System Maintenance Worker Maximum), 1 TAB PO BID, (Reported) Furosemide (Furosemide), 1 TAB PO DAILY, (Reported) Metoprolol Tartrate (Metoprolol Tartrate), 1 TAB PO BID, (Reported) Sacubitril-Valsartan (Entresto 49-51 mg), 1 TAB PO BID, (Reported) Spironolactone (Spironolactone), 1 TAB PO DAILY, (Reported) Discharge Statement: "Patient was advised to return to the ER or call 911 if any headaches, dizziness, shortness of breath, chest pain, abdominal pain, bleeding, fevers, or worsening of medical condition. Patient was counseled about treatment plan, medications, possible side effects, patientverbalized understanding. All questions were answered to the best of my ability. This discharge took greater then 30 minutes in planning, reviewing documentation, counseling the patient, and discussing with other team members." ASSESSMENT ASSESSMENT Assessment liver cirrhosis Date of Service: Mar 10, 2025 Billing Provider: ANA POTTER MD Common Visit Codes: [id number] DISCH DAY >30min ANA POTTER MD Mar 10, 2025 14:34
[2025-03-10] MEDS ORDERED: MAGN400T40 PO (14:39)
[2025-03-10] MEDS ORDERED: POTA-180 PO (14:39)
--- NOTE | 2025-03-10 14:57 | DVHDS ---
DATE OF DISCHARGE: 03/10/2025 HISTORY OF PRESENT ILLNESS: The patient is a 49-year-old gentleman who was admitted with history of shortness of breath and lower extremity swelling. He has history of CHF, liver cirrhosis, cardiomyopathy, and hypertension. HOSPITAL COURSE: The patient was noted to have cellulitis and gout of the lower extremities. He was placed on steroids along with diuretics and antibiotics. The patient was noted to be in acute renal failure. He was seen in nephrology consult by Dr. Garcia. The patient's kidneys have since improved to normal. The patient was persistently hypokalemic and that has improved. The patient had a CT of chest, abdomen, and pelvis that showed a compression fracture of T5-T6 of unknown chronicity. The patient had a CT of the head that showed no acute intracranial abnormality. The patient had Doppler of lower extremities that was negative for DVT. The patient is now improved in his symptoms. Blood cultures have been negative. The patient will be discharged to resume his home medications as well as to be on magnesium oxide 400 mg b.i.d. and potassium chloride 20 mEq p.o. daily. He will follow up with his primary in one week. FINAL DIAGNOSES: * Acute respiratory failure. * Gout with flare-up. * Morbid obesity. * Alcoholic dilated cardiomyopathy. * Acute renal failure, questionable vasomotor nephropathy. * Acute on chronic systolic heart failure. * Hyponatremia. * Severe hypokalemia. * Sepsis with cellulitis. * Alcoholic liver cirrhosis. * Sleep apnea. Time spent in discharge planning and review of plan with the patient and nursing was 39 minutes. MD MALIK Daley/JAYCOB TID: [id number] RECEIPT: [id number]
[2025-03-10] MEDS ORDERED: FURO1TAB31 PO (16:12)
[2025-03-10] MEDS ORDERED: SPIR25TA PO (16:12)
[2025-03-11] MEDS ORDERED: FUROSEMIDE 20 MG TAB PO SCH (10:00)
== END 2025-03-10 16:36 | disposition home or self-care (01) | DRG 720 ==
LOC: ER 02:22 → OVERFLOW 08:52 → TELE-WESTW 21:54
PROVIDERS: ADMIT Internal Medicine; ATTEND Internal Medicine
PROC: 5A09357 Assistance with Respiratory Ventilation, Less than 24 Consecutive Hours, Continuous Positive Airway Pressure (ICD-10-PCS; principal; 2025-02-25)
PROC: 5A09357 Assistance with Respiratory Ventilation, Less than 24 Consecutive Hours, Continuous Positive Airway Pressure (ICD-10-PCS; 2025-02-26)
PROC: 5A09357 Assistance with Respiratory Ventilation, Less than 24 Consecutive Hours, Continuous Positive Airway Pressure (ICD-10-PCS; 2025-02-27)
PROC: 5A09357 Assistance with Respiratory Ventilation, Less than 24 Consecutive Hours, Continuous Positive Airway Pressure (ICD-10-PCS; 2025-03-04)
PROC: 5A09357 Assistance with Respiratory Ventilation, Less than 24 Consecutive Hours, Continuous Positive Airway Pressure (ICD-10-PCS; 2025-03-05)
PROC: 5A09357 Assistance with Respiratory Ventilation, Less than 24 Consecutive Hours, Continuous Positive Airway Pressure (ICD-10-PCS; 2025-03-06)
PROC: 5A09357 Assistance with Respiratory Ventilation, Less than 24 Consecutive Hours, Continuous Positive Airway Pressure (ICD-10-PCS; 2025-03-07)
PROC: 5A09357 Assistance with Respiratory Ventilation, Less than 24 Consecutive Hours, Continuous Positive Airway Pressure (ICD-10-PCS; 2025-03-08)
PROC: 5A09357 Assistance with Respiratory Ventilation, Less than 24 Consecutive Hours, Continuous Positive Airway Pressure (ICD-10-PCS; 2025-03-09)
DX: A41.9 Sepsis, unspecified organism (principal); N17.0 Acute kidney failure with tubular necrosis; J96.21 Acute and chronic respiratory failure with hypoxia; J96.22 Acute and chronic respiratory failure with hypercapnia; I50.23 Acute on chronic systolic (congestive) heart failure; I42.0 Dilated cardiomyopathy; I42.6 Alcoholic cardiomyopathy; E87.1 Hypo-osmolality and hyponatremia; M48.54XA Collapsed vertebra, not elsewhere classified, thoracic region, initial encounter for fracture; Z99.81 Dependence on supplemental oxygen; I13.0 Hypertensive heart and chronic kidney disease with heart failure and stage 1 through stage 4 chronic kidney disease, or unspecified chronic kidney disease; F10.20 Alcohol dependence, uncomplicated; E87.4 Mixed disorder of acid-base balance; E66.2 Morbid (severe) obesity with alveolar hypoventilation; K70.30 Alcoholic cirrhosis of liver without ascites; Z68.41 Body mass index [BMI] 40.0-44.9, adult; N18.30 Chronic kidney disease, stage 3 unspecified; L03.116 Cellulitis of left lower limb; M10.9 Gout, unspecified; E87.6 Hypokalemia; T50.2X5A Adverse effect of carbonic-anhydrase inhibitors, benzothiadiazides and other diuretics, initial encounter; T36.8X5A Adverse effect of other systemic antibiotics, initial encounter; T38.0X5A Adverse effect of glucocorticoids and synthetic analogues, initial encounter; L03.115 Cellulitis of right lower limb; E55.9 Vitamin D deficiency, unspecified; I87.2 Venous insufficiency (chronic) (peripheral); Z79.82 Long term (current) use of aspirin; Z79.899 Other long term (current) drug therapy; Y92.89 Other specified places as the place of occurrence of the external cause
CPT/HCPCS: 36415; 36600; 70450; 71045; 71046; 71250; 74176; 76705; 76775; 80048; 80053; 80061; 80202; 81001; 82306; 82570; 82805; 83605; 83735; 83880; 83970; 84100; 84132; 84156; 84300; 84443; 84484; 84550; 85007; 85025; 85027; 85379; 85610; 85730; 87040; 93005; 93306; 93925; 93970; 94640; 94660; 96365; 96367; 97110; 97116; 97163; 97530; G0378; J1956; J2003; J2405; J2543; J3480